=== PATIENT | male | born 1940 | race African-American/Black ===

== ENCOUNTER 2019-01-11 15:32 | Inpatient (IN) | payer OTHER ==
[2019-01-11] MEDS ORDERED: SODIUM CHLORIDE 1,000 ML IV STA ×2 (15:39→18:38)
[2019-01-11] MEDS ORDERED: ACETAMINOPHEN 1000 MG/100 ML VIAL (NON FORMULARY) IVPB ONE (15:39)
[2019-01-11] MEDS ORDERED: ONDANSETRON 4 MG/2 ML VIAL IVPUSH ONE (15:39)
--- NOTE | 2019-01-11 15:40 | PDOC ---
Rapid Medical Evaluation Time Seen by Provider: 01/11/19 15:35 Medical Evaluation: Allergies Allergy/AdvReac Type Severity Reaction Status Date / Time No Known Allergies Allergy Verified 01/11/19 15:34 01/11/19 15:35 Pt presents for abdominal pain for one week. He states the pain is located in his upper abdomen. Cannot keep fluids or food down. Also with assoicated diarrhea Exam: Orders: Pt to proceed to the ER for further evaluation Discharge Disposition - Diagnosis Abdominal pain Qualifiers: Abdominal location: epigastric Qualified Code(s): R10.13 - Epigastric pain - Referrals - Patient Instructions - Post Discharge Activity
[2019-01-11 15:41] VITALS: BMI 24.0
[2019-01-11] MEDS ORDERED: ACETAMINOPHEN INJECTION 100 ML IVPB ONE (16:30)
[2019-01-11] MEDS ORDERED: ONDANSETRON 4 MG/2 ML VIAL ONE (16:30)
--- NOTE | 2019-01-11 16:30 | PDOC ---
Attending Attestation - Resident Resident Name: DorinaWilmer - ED Attending Attestation I have performed the following: I have examined & evaluated the patient, The case was reviewed & discussed with the resident, I agree w/resident's findings & plan, Exceptions are as noted - HPI HPI: 01/11/19 16:46 78yo male with hx of afib, ckd, htn on eliquis with a week of fever and diarrhea since last . Pt sent by Dr. Yanes for eval of abd pain and fever. Pt states pain to upper abd x 3 days. Pt states watery diarrhea. Pt states dry cough. Pt denies cp/sob. No dysuria. States decreased po intake x days secondary to nausea, but denies vomiting. Pt arrives tachy, febrile. Pt denies blood in stool. No edema. Pt with dry mm. - Physicial Exam PE: 01/11/19 16:48 Gen: aaox3, hot to touch, febrile, tachy heent: EOMI, Dry mm heart: +s1s2 irreg irreg tachy lungs: cta b/l abd: soft, epigastric and L sided ttp, no rebound or guarding, some RUQ ttp-neg murphys ext: no c/c/e - Medical Decision Making 01/11/19 16:50 a/p: 78yo male sent for eval of fever x 1 week assoc with abd pain and diarrhea -watery stool -no recent travel or abx -seen by Dr. 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 mcpherson who will see the patient in consult, no emergent intervention needed ct findings discussed with Dr. Yanes who agrees with admission to [facility] and states known calcified mass to kidney call placed to dr jimenez microblog [facility] 01/12/19 01:44 multiple calls placed to surgery - pending call back *DC/Admit/Observation/Transfer Diagnosis at time of Disposition: Fever, Diarrhea, Iliac aneurysm Abdominal pain Qualifiers: Abdominal location: epigastric Qualified Code(s): R10.13 - Epigastric pain - Discharge Dispostion Condition at time of disposition: Guarded Decision to Admit order: Yes Decision to Admit order Date/Time: Decision to Admit Order Category Date Time Status Decision to Admit to Hospital Routine Admission 01/12/19 00:36 Ordered - Referrals - Patient Instructions - Post Discharge Activity Heart Score/ECG Review - ECG Intrepretation Comment:: 01/11/19 16:55 afib at 107, l axis, lvh, interventricular conduction delay, pvc, abnl ekg
--- NOTE | 2019-01-11 16:33 | PDOC ---
History of Present Illness - General Chief Complaint: Pain, Acute Stated Complaint: SENT BY DR ABAD/PADMINI PAIN/VOMITING Time Seen by Provider: 01/11/19 15:35 - History of Present Illness Initial Comments: 01/11/19 17:21 The patient is a 78 year old male with a history of Afib on eloquis, HTN, CKD who presents for evaluation of fevers and abdominal pain. The patient reports a 1 week history of subjective fevers with associated upper abdominal pain and multiple episodes of watery diarrhea prompting his presentation to the ED for further evaluation after discussion with his primary care provider. He noted some non-productive cough as well but otherwise denies sob, vomiting, or changes with urination or bowel movements. Past History - Past Medical History Allergies/Adverse Reactions: Allergies Allergy/AdvReac Type Severity Reaction Status Date / Time No Known Allergies Allergy Verified 01/11/19 15:34 Home Medications: Ambulatory Orders Apixaban [Eliquis] 5 mg PO BID 01/11/19 Atorvastatin Ca [Lipitor] 10 mg PO HS 01/11/19 Carvedilol 25 mg PO BID 01/11/19 Furosemide 80 mg PO DAILY 01/11/19 Furosemide [Lasix -] 40 mg PO BID 01/11/19 Hydralazine HCl 10 mg PO TID 01/11/19 Isosorbide Mononitrate [Imdur -] 30 mg PO DAILY 01/11/19 Sodium Bicarbonate - 2 tab PO TID 01/11/19 Spironolactone 25 mg PO DAILY 01/11/19 COPD: No HTN: Yes - Suicide/Smoking/Psychosocial Hx Smoking History: Never smoked Have you smoked in the past 12 months: No Hx Alcohol Use: Yes Drug/Substance Use Hx: No Review of Systems - Review of Systems Comments:: 01/11/19 17:24 Constitutional: Fevers, Fatigue. No chills, malaise HEENT: No Rhinorrhea, nasal congestion, visual changes Cardiovascular: No chest pain, syncope, palpitations, lightheadedness Respiratory: No Cough, SOB, Hemoptysis, Gastrointestinal: Abdominal pain, diarrhea. No Vomiting, Constipation, Melena Genitourinary: No Dysuria, Frequency, Urgency, Hesitancy, Hematuria, Flank pain Musculoskeletal: No Myalgia, arthralgia Skin: No rashes, itching, bruising, pallor Neurologic: No Headache, Dizziness, Numbness, Weakness, or Tingling Psychiatric: No Hallucinations. No SI or HI *Physical Exam - Vital Signs Last Vital Signs Temp Pulse Resp BP Pulse Ox 101.1 F H 105 H 18 82/52 L 98 01/11/19 15:35 01/11/19 15:35 01/11/19 15:35 01/11/19 15:35 01/11/19 15:35 - Physical Exam Comments: 01/11/19 17:26 General Appearance: Nourished. No Apparent Distress HEENT: No Pharyngeal Erythema, Tonsillar Exudate, Tonsillar Erythema Neck: No Cervical Lymphadenopathy Respiratory/Chest: Lungs Clear, Normal Breath Sounds. No Crackles, Rales, Rhonchi, Wheezing Cardiovascular: Regular Rhythm, Regular Rate. No Murmur, Gallops, Rubs Gastrointestinal/Abdominal: Normal Bowel Sounds, Soft. Tenderness to palpation in the epigastrium and LUQ. Mild discomfort with palpation in the RUQ with a negative Martini's sign. No Guarding, Rebound, Musculoskeletal: No CVA Tenderness Extremity: Normal Capillary Refill Integumentary: Normal Color, Dry, Warm Neurologic: Fully Oriented, Alert, Normal Mood/Affect, Normal Response, Heart Score/ECG Review #1 ECG reviewed & interpreted by me at: 17:31 01/11/19 17:31 HR 107 QTc 427 Atrial fibrillation with rapid ventricular response and PVCs Left Matthews Deviation No Acute ST Changes ED Treatment Course - LABORATORY CBC & Chemistry Diagram: 01/14/19 06:06 01/14/19 06:06 Medical Decision Making - Medical Decision Making 01/11/19 17:26 The patient is a 78 year old male with a history of Afib on eloquis, HTN, CKD who presents for evaluation of fevers and abdominal pain. Differential includes but is not limited to: Colitis, Gastritis, Sepsis, Pneumonia, Infectious, Metabolic Derangement. Given the patient's history and physical exam, we will obtain a cbc, cmp, troponin, blood cultures, UA, urine culture, stool cultures, stool ova and parasites, chest plain film, CT abdomen/pelvis with PO contrast to evaluate further. We will treat with iv fluids, tylenol, and continue to monitor and reassess while here in the ED. 01/11/19 19:04 CBC demonstrates a wbc to 12. CMP, troponin are unremarkable. The patient is pending CT abdomen/pelvis and will likely require admission. The patient was signed out to Dr. Kan. *DC/Admit/Observation/Transfer Diagnosis at time of Disposition: Fever, Diarrhea, Iliac aneurysm Abdominal pain Qualifiers: Abdominal location: epigastric Qualified Code(s): R10.13 - Epigastric pain - Discharge Dispostion Condition at time of disposition: Guarded - Referrals - Patient Instructions - Post Discharge Activity
[2019-01-11 17:05] LABS: BASO % 0.1 % (0-2.0); HEMATOCRIT 30.1 % (35.4-49); LYMPH % 3.7 % (8-40); MCH 29.5 pg (25.7-33.7); MCHC 33.1 g/dl (32.0-35.9); MEAN CELL VOLUME 88.9 fl (80-96); MEAN PLT VOLUME 8.4 fl (7.5-11.1); NEUT % 88.2 % (42.8-82.8); PLATELET COUNT 134 K/MM3 (134-434); RBC 3.38 M/mm3 (4.00-5.60); RDW 16.2 % (11.9-15.9); WHITE BLOOD COUNT 12.1 K/mm3 (4.0-10.0)
[2019-01-11 17:16] LABS: ALBUMIN 2.7 g/dl (3.4-5.0); BILIRUBIN,TOTAL 2.2 mg/dL (0.2-1); BLOOD UREA NITROGEN 32.8 mg/dL (7-18); CALCIUM 8.3 mg/dL (8.5-10.1); CREATININE 2.3 mg/dL (0.55-1.3); POTASSIUM 3.7 mmol/L (3.5-5.1); TOT PROT 6.8 g/dl (6.4-8.2)
[2019-01-11 17:27] LABS: INR 3.08 (0.83-1.09); PROTHROMBIN TIME (PATIENT) 36.8 SEC (9.7-13.0)
[2019-01-11] MEDS ORDERED: SODIUM CHLORIDE 0.9% 1000 ML INFUS.BAG IV ONE (22:21)
[2019-01-11] MEDS ORDERED: METOPROLOL TARTRATE 5 MG/5 ML VIAL IVPUSH ONE (22:22)
[2019-01-11] MEDS ORDERED: METOPROLOL TARTRATE 5 MG/5 ML VIAL ONE (23:06)
--- NOTE | 2019-01-12 00:34 | PN ---
Teaching Attending Note Name of Resident: Meagan El ATTENDING PHYSICIAN STATEMENT I saw and evaluated the patient. I reviewed the resident's note and discussed the case with the resident. I agree with the resident's findings and plan as documented. SUBJECTIVE: Patient is a 78 year old man with PMH of Afib (on Eliquis), CKD and HTN with a week of fever and diarrhea. Patient sent by Dr. Yanes for evaluation of abdominal pain and fever. Patient states that he has had pain to upper abdomen with watery diarrhea and dry cough. Says he is afraid to eat or drink liquid becomes it comes right out and he has stool incontinence. Says he has lost some weight. Denies chest pain or SOB. No dysuria. States decreased oral intake for days due to nausea, but denies vomiting. Recently diagnosed CKD but cause is unknown. Has FH of CAD and CKD - father was on dialysis. Denies bloody stool, recent travels, sick contacts, recent antibiotics use, illicit drug use or consumption of unusual/stale or street food. OBJECTIVE: Alert Vital Signs Period Temp Pulse Resp BP Sys/Finney Pulse Ox Last 24 Hr 98.5 F-101.1 F 103-124 18-21 82-104/52-76 95-98 HEENT: No Jaundice, eye redness or discharge, PERRLA, EOMI. Normocephalic, atraumatic. External ears are normal and hearing is grossly intact. No nasal discharge. Neck: Supple, nontender. No palpable adenopathy or thyromegaly. No JVD Chest: Good effort. Clear to auscultation and percussion. Heart: Irregularly irregular. No S3, rub or murmur Abdomen: Not distended, soft, upper abdominal tenderness; and no HSM. No rebound or guarding. Normal bowel sounds. Ext: Peripheral pulses intact. No leg edema. Cellulitis and induration to the right buttock Skin: Warm and dry. No petechiae, rash or ecchymosis. Neuro: Alert. Oriented x3. CN 2-12 grossly intact. Sensation grossly intact in all four extremities and DTR are symmetric. Psych: Appropriate mood and affect. Good insight. Current Medications Generic Name Dose Route Start Last Admin Trade Name Freq PRN Reason Stop Dose Admin Ciprofloxacin/Dextrose 400 mg in 200 mls @ 200 mls/hr 01/12/19 00:39 Cipro 400 Mg Premix Ivpb (Restricted To Id) IVPB 01/12/19 01:38 ONCE ONE Metronidazole 500 mg in 100 mls @ 100 mls/hr 01/12/19 00:39 Flagyl 500mg Premixed Ivpb - IVPB 01/12/19 01:38 ONCE ONE Home Medications Medication Instructions Recorded Apixaban [Eliquis] 5 mg PO BID 01/11/19 Atorvastatin Ca [Lipitor] 10 mg PO HS 01/11/19 Carvedilol 25 mg PO BID 01/11/19 Furosemide 80 mg PO DAILY 01/11/19 Furosemide [Lasix -] 40 mg PO BID 01/11/19 Hydralazine HCl 20 mg PO TID 01/11/19 Isosorbide Mononitrate [Imdur -] 30 mg PO DAILY 01/11/19 Sodium Bicarbonate - 2 tab PO TID 01/11/19 Spironolactone 25 mg PO BID 01/11/19 Abnormal Lab Results 01/11/19 01/11/19 01/11/19 16:00 16:00 16:00 WBC 12.1 H RBC 3.38 L Hgb 10.0 L Hct 30.1 L RDW 16.2 H Absolute Neuts (auto) 10.7 H Neutrophils % 88.2 H Lymphocytes % 3.7 L PT with INR 36.80 H INR 3.08 H Sodium 134 L BUN 32.8 H Creatinine 2.3 H Calcium 8.3 L Total Bilirubin 2.2 H ALT 11 L Albumin 2.7 L ASSESSMENT AND PLAN: 1. 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 Hu by the ER staff and he will see the patient in consult - no emergent intervention needed". CXR shows cardiomegaly, unfolded aorta but no infiltrates. Stool is being sent for analysis. Patient started on IV Cipro and Flagyl. Will consult ID, Surgery and GI. EKG shows Afib with rate of 107 and nonspecific intraventricular block. Got IV Lopressor 5 mg in the ER and the heart rate improved. If he is unable to tolerate Carvedilol, will use Lopressor IV PRN for rate control. Will continue comprehensive care of all his comorbid conditions and reduce dose of Eliquis to 2.5 mg bid in view of CKD. Admit to telemetry. 2. Hypoalbuminemia - Possibly due to combined effects of malnutrition and inflammation associated with comorbid chronic conditions. Will ensure adequate dietary protein intake and also consult medical administrative technician. Urinalysis pending. 3. CKD - Cause unclear. Will hydrate gently, monitor urine output, get urinalysis and consult nephrology. Avoid nephrotoxic agents such as NSAIDS, aminoglycosides, contrast dyes and certain Alternative medicine products. 4. Anemia - Likely partly due to CKD. Will do basic anemia work up including serial stool guaiacs, reticulocyte count and iron studies. 5. Hypertension - Will hold outpatient antihypertensive drugs for now in view of low normal BP. Restart when clinically appropriate. Revise regimen to ensure [id number] excellent BP control and business and financial counsel patient on the injurious effects of uncontrolled hypertension. Nonpharmacologic measures to control hypertension like weight loss, salt restriction and exercise discussed. Importance of adherence to treatment regimen and attainment of normotension emphasized. 6. DVT prophylaxis - On Eliquis for Afib. 7. Advance directives - Full code
[2019-01-12] MEDS ORDERED: CIPROFLOXACIN 400 MG/D5W 400 MG/200 ML IVPB IVPB ONE (00:39)
[2019-01-12] MEDS ORDERED: LACTATED RINGERS SOLUTION 1,000 ML/1,000 ML INFUS.BAG IV SCH (01:45)
[2019-01-12] MEDS ORDERED: SODIUM CHLORIDE 1,000 ML IV SCH (01:45)
[2019-01-12] MEDS: SODIUM CHLORIDE 1,000 ML IV SCH (02:30)
[2019-01-12] MEDS ORDERED: METOPROLOL TARTRATE 5 MG/5 ML VIAL IVPUSH PRN (02:30)
--- NOTE | 2019-01-12 04:01 | HP ---
CHIEF COMPLAINT: Diarrhea for the past 4-5 days PCP: Ledy Rascon HISTORY OF PRESENT ILLNESS: This is a 78 year old male with PMH significant for HTN, CKD, and AFib. He presented today from home with complaints of diarrhea for the past 4-5 days. He states that he ate home cooked steak 7-8 days ago, and started to feel nauseated and "queasy" over the next few hours. He attempted a bowel movement, but was unable to move his bowels. He endorsed feeling feverish around that time , which resolved after he took a Tylenol. He then developed anorexia the next day. 2 days after that he developed generalized weakness and 4-5 episodes of diarrhea per day since then. The stool is watery, brown, non foul smelling, with no blood or associated pain during defecation. He also complains of tenderness in his dawna-rectal region for the past 4,5 days. He had surgery in the 60s to remove what he described as a "soft mass" in the area, and states that he has never felt any pain or discomfort there before. He does not complain of any associated vomiting, constipation, dizziness, light headedness, SOB, palpitations, dysuria, urinary urgency or hesitancy. He denies any recent travel or sick contacts. 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.6 aortoiliac aneurysm/ calcified R renal mass (4) CXR: Cardiomegaly, no infiltrates Recent Travel: None PAST MEDICAL HISTORY: HTN CKD AFib on Eliquis PAST SURGICAL HISTORY: Dawna-rectal mass removed in 60s Social History: Lives with his , is retired Smoking: Quit 60 years ago, smoked 1/2 pack per day for 15 years Alcohol: Quit 60 years ago Drugs: Denies Family History: Allergies No Known Allergies Allergy (Verified 01/11/19 15:34) HOME MEDICATIONS: Home Medications Medication Instructions Recorded Apixaban [Eliquis] 5 mg PO BID 01/11/19 Atorvastatin Ca [Lipitor] 10 mg PO HS 01/11/19 Carvedilol 25 mg PO BID 01/11/19 Furosemide 80 mg PO DAILY 01/11/19 Furosemide [Lasix -] 40 mg PO BID 01/11/19 Hydralazine HCl 20 mg PO TID 01/11/19 Isosorbide Mononitrate [Imdur -] 30 mg PO DAILY 01/11/19 Sodium Bicarbonate - 2 tab PO TID 01/11/19 Spironolactone 25 mg PO BID 01/11/19 REVIEW OF SYSTEMS CONSTITUTIONAL: generalized weakness, malaise, loss of appetite Absent: fever, chills, diaphoresis, generalized weakness, malaise, loss of appetite, weight change HEENT: Absent: rhinorrhea, nasal congestion, throat pain, throat swelling, difficulty swallowing, mouth swelling, ear pain, eye pain, visual changes CARDIOVASCULAR: irregular heart rate Absent: chest pain, syncope, palpitations, irregular heart rate, lightheadedness , peripheral edema RESPIRATORY: Absent: cough, shortness of breath, dyspnea with exertion, orthopnea, wheezing, stridor, hemoptysis GASTROINTESTINAL: nausea, diarrhea Absent: abdominal pain, abdominal distension, nausea, vomiting, diarrhea, constipation, melena, hematochezia GENITOURINARY: Absent: dysuria, frequency, urgency, hesitancy, hematuria, flank pain, genital pain MUSCULOSKELETAL: Absent: myalgia, arthralgia, joint swelling, back pain, neck pain SKIN: Absent: rash, itching, pallor HEMATOLOGIC/IMMUNOLOGIC: Absent: easy bleeding, easy bruising, lymphadenopathy, frequent infections ENDOCRINE: Absent: unexplained weight gain, unexplained weight loss, heat intolerance, cold intolerance NEUROLOGIC: Absent: headache, focal weakness or paresthesias, dizziness, unsteady gait, seizure, mental status changes, bladder or bowel incontinence PSYCHIATRIC: Absent: anxiety, depression, suicidal or homicidal ideation, hallucinations. PHYSICAL EXAMINATION Vital Signs - 24 hr 01/11/19 01/11/19 01/11/19 15:35 16:00 17:30 Temperature 101.1 F H Pulse Rate 105 H Pulse Rate [ 110 H 113 H Apical] Respiratory 18 18 18 Rate Blood Pressure 82/52 L Blood Pressure 100/66 94/75 [Right Arm] O2 Sat by Pulse 98 95 95 Oximetry (%) 01/11/19 01/11/19 01/11/19 18:49 22:22 22:39 Temperature 98.5 F Pulse Rate Pulse Rate [ 103 H 124 H Apical] Respiratory 21 H 18 Rate Blood Pressure Blood Pressure 94/72 104/76 [Right Arm] O2 Sat by Pulse 95 Oximetry (%) 01/11/19 01/12/19 23:10 01:07 Temperature Pulse Rate Pulse Rate [ 110 H Apical] Respiratory 18 Rate Blood Pressure 93/68 Blood Pressure 105/68 [Right Arm] O2 Sat by Pulse Oximetry (%) GENERAL: Awake, alert, and fully oriented, in no acute distress. HEAD: Normal with no signs of trauma. EYES: Pupils equal, round and reactive to light, extraocular movements intact, sclera anicteric, conjunctiva clear. No lid lag. EARS, NOSE, THROAT: Ears normal, nares patent, oropharynx clear without exudates. dry mucous membranes. NECK: Normal range of motion, supple without lymphadenopathy, JVD, or masses. LUNGS: Breath sounds equal, clear to auscultation bilaterally. No wheezes, and no crackles. No accessory muscle use. HEART: tachycardic, irrefular rhythm, no rub or gallop. ABDOMEN: Soft, nontender, not distended, normoactive bowel sounds, 3x2 cm perirectal mass on Rt buttock, slightly erythematous, on fluctuant MUSCULOSKELETAL: Normal range of motion at all joints. No bony deformities or tenderness. No CVA tenderness. UPPER EXTREMITIES: 2+ pulses, warm, well-perfused. No cyanosis. No clubbing. No peripheral edema. LOWER EXTREMITIES: 2+ pulses, warm, well-perfused. No calf tenderness. No peripheral edema. NEUROLOGICAL: Cranial nerves II-XII intact. Normal speech. Normal gait. PSYCHIATRIC: Cooperative. Good eye contact. Appropriate mood and affect. SKIN: Warm, dry, normal turgor, no rashes or lesions noted, normal capillary refill. Laboratory Results - last 24 hr 01/11/19 01/11/19 01/11/19 16:00 16:00 16:00 WBC 12.1 H RBC 3.38 L Hgb 10.0 L Hct 30.1 L MCV 88.9 MCH 29.5 MCHC 33.1 RDW 16.2 H Plt Count 134 MPV 8.4 Absolute Neuts (auto) 10.7 H Neutrophils % 88.2 H Lymphocytes % 3.7 L Monocytes % 8.0 Eosinophils % 0.0 Basophils % 0.1 Nucleated RBC % 0 PT with INR 36.80 H INR 3.08 H Sodium 134 L Potassium 3.7 Chloride 100 Carbon Dioxide 24 Anion Gap 11 BUN 32.8 H Creatinine 2.3 H Est GFR (CKD-EPI)AfAm 30.17 Est GFR (CKD-EPI)NonAf 26.04 Random Glucose 90 Lactic Acid Calcium 8.3 L Total Bilirubin 2.2 H AST 29 ALT 11 L Alkaline Phosphatase 111 Total Protein 6.8 Albumin 2.7 L Lipase 116 01/11/19 16:00 WBC RBC Hgb Hct MCV MCH MCHC RDW Plt Count MPV Absolute Neuts (auto) Neutrophils % Lymphocytes % Monocytes % Eosinophils % Basophils % Nucleated RBC % PT with INR INR Sodium Potassium Chloride Carbon Dioxide Anion Gap BUN Creatinine Est GFR (CKD-EPI)AfAm Est GFR (CKD-EPI)NonAf Random Glucose Lactic Acid 1.4 Calcium Total Bilirubin AST ALT Alkaline Phosphatase Total Protein Albumin Lipase ASSESSMENT/PLAN: 78 year old male with PMH significant for HTN, CKD, and AFib. He presented today from home with complaints of diarrhea for the past 4-5 days. #Sepsis - Perirectal abcess vs gastroenteritis - CT prelim report: mass surrounding coccyx involving ischiorectal & R buttock fat - Blood, stool, and urine cx ordered - Cipro, Metronidazole given in ER - GI (Dr. Auguste) consulted - ID (Dr. Avila) consulted for abx recommendations - Surgery (Dr. 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 Hu, no acute intervention recommended - Vascular (Dr. Hu) consult placed #Anemia - Likely 2/2 CKD - H&H 10.0/30.1 - Fe studies/Retic count ordered - FOBT negative #Hx of CKD - Bun:Cr 32.8/2.3 - Nephro (Dr. Yanes) consulted - CT prelim report: calcified R renal mass - ER spoke with Dr. Yanes, he stated that R Renal mass is chronic #Hx of AFib with RVR - On Eliquis 5mg BD, may have to reduce Eliquis dose (PT/INR 36.8, high GFR) - Was tachycardic, put on Lopressor 5mg IV Q4H PRN, 5mg given in ER #Hx of HTN - Will hold home meds due to hypotension - Monitor BP/ continue home emds when appropriate #FEN - N/S @ 75 - Hyponatremia (134) possibly 2/2 volume loss from diarrhea as well as impaired renal regulation due to CKD - Monitor Na - Mg, Phos ordere d - NPO pending GI consult #DVT PE - SCDs (will avoid Lovenox/Heparin since pt is on Eliquis for AFib) Visit type - Emergency Visit Emergency Visit: Yes ED Registration Date: 01/12/19 Care time: The patient presented to the Emergency Department on the above date and was hospitalized for further evaluation of their emergent condition. - New Patient This patient is new to me today: Yes Date on this admission: 01/12/19 - Critical Care Critical Care patient: No ATTENDING PHYSICIAN STATEMENT I saw and evaluated the patient. I reviewed the resident's note and discussed the case with the resident. I agree with the resident's findings and plan as documented. SUBJECTIVE: OBJECTIVE: ASSESSMENT AND PLAN:
[2019-01-12 04:20] LABS: URINE APPEARANCE CLOUDY; URINE BILIRUBIN 1+ (NEGATIVE); URINE COLOR DK YELLOW; URINE GLUCOSE (UA) NEGATIVE (NEGATIVE); URINE KETONE TRACE (NEGATIVE); URINE LEUK ESTERASE 1+ (NEGATIVE); URINE NITRITE NEGATIVE (NEGATIVE); URINE PROTEIN 2+ (NEGATIVE)
[2019-01-12 05:21] LABS: EPI CELLS 18.3 /HPF (0-5/HPF); HYALINE CASTS 0 /lpf (0-8); URINE BACTERIA 16.8 /hpf (NEGATIVE); URINE RBC 3.1 /hpf (0-4); URINE WBC 15.2 /hpf (0-5)
[2019-01-12] MEDS ORDERED: ACETAMINOPHEN INJECTION 100 ML IVPB ONE (06:33)
[2019-01-12] MEDS: ACETAMINOPHEN 1000 MG/100 ML VIAL (NON FORMULARY) IVPB PRN (06:36)
[2019-01-12 07:30] LABS: BASO % 0.1 % (0-2.0); HEMOGLOBIN 9.4 GM/dL (11.7-16.9); LYMPH % 2.7 % (8-40); MCH 29.6 pg (25.7-33.7); MCHC 33.5 g/dl (32.0-35.9); MEAN CELL VOLUME 88.5 fl (80-96); MEAN PLT VOLUME 8.2 fl (7.5-11.1); MONO % 7.9 % (3.8-10.2); NEUT % 89.3 % (42.8-82.8); PLATELET COUNT 115 K/MM3 (134-434); RBC 3.17 M/mm3 (4.00-5.60); RDW 16.2 % (11.9-15.9); WHITE BLOOD COUNT 11.8 K/mm3 (4.0-10.0)
[2019-01-12 07:36] LABS: ALBUMIN 2.4 g/dl (3.4-5.0); BILIRUBIN,TOTAL 2.1 mg/dL (0.2-1); CREATININE 2.2 mg/dL (0.55-1.3); PHOSPHOROUS 2.8 mg/dL (2.5-4.9); POTASSIUM 3.7 mmol/L (3.5-5.1); TOT PROT 6.2 g/dl (6.4-8.2)
--- NOTE | 2019-01-12 07:42 | CONSULT ---
Consult Consult Specialty:: General Surgery Reason for Consultation:: gluteal/ perianal abscess? and adenopathy - History of Present Illness Chief Complaint: perianal pain History of Present Illness: 78 yo male PMH significant for HTN, CKD, and AFib on xeralto presented today from home with complaints of diarrhea for the past 4-5 days. He states that he ate home cooked steak 7-8 days ago, and started to feel nauseated and "queasy" over the next few hours. He attempted a bowel movement, but was unable to move his bowels. He endorsed feeling feverish around that time, which resolved after he took a Tylenol. He then developed anorexia the next day. 2 days after that he developed generalized weakness and 4-5 episodes of diarrhea per day since then. The stool is watery, brown, non foul smelling, with no blood or associated pain during defecation. We were called to assess. - History Source History Provided By: Patient, Medical Record Limitations to Obtaining History: No Limitations - Past Medical History Cardio/Vascular: Yes: AFIB, HTN Renal/: Yes: Renal Inusuff - Alcohol/Substance Use Hx Alcohol Use: Yes - Smoking History Smoking history: Never smoked Have you smoked in the past 12 months: No - Social History Place of : [facility] History of Recent Travel: No Home Medications - Allergies Allergies/Adverse Reactions: Allergies Allergy/AdvReac Type Severity Reaction Status Date / Time No Known Allergies Allergy Verified 01/11/19 15:34 - Home Medications Home Medications: Ambulatory Orders Apixaban [Eliquis] 5 mg PO BID 01/11/19 Atorvastatin Ca [Lipitor] 10 mg PO HS 01/11/19 Carvedilol 25 mg PO BID 01/11/19 Furosemide 80 mg PO DAILY 01/11/19 Furosemide [Lasix -] 40 mg PO BID 01/11/19 Hydralazine HCl 10 mg PO TID 01/11/19 Isosorbide Mononitrate [Imdur -] 30 mg PO DAILY 01/11/19 Sodium Bicarbonate - 2 tab PO TID 01/11/19 Spironolactone 25 mg PO DAILY 01/11/19 Review of Systems - Review of Systems Constitutional: denies: Chills, Fever Eyes: denies: Blind Spots, Recent Change in Vision HENT: denies: Difficult Swallowing, Throat Pain Neck: denies: Decreased ROM, Tenderness Cardiovascular: denies: Chest Pain, Palpitations Respiratory: denies: Cough, SOB Gastrointestinal: denies: Abdominal Pain, Constipation, Diarrhea Genitourinary: denies: Discharge, Dysuria Breasts: reports: No Symptoms Reported. denies: Pain Musculoskeletal: denies: Muscle Pain, Muscle Cramps Integumentary: denies: Lesions, Pruritis, Rash Neurological: denies: Seizure, Syncope Endocrine: denies: Unexplained Weight Gain, Unexplained Weight Loss Hematology/Lymphatic: denies: Easily Bruised, Excessive Bleeding Physical Exam Vital Signs: Vital Signs Temperature 100.0 F H 01/12/19 05:00 Pulse Rate 98 H 01/12/19 05:25 Respiratory Rate 18 01/12/19 05:25 Blood Pressure 106/75 01/12/19 05:25 O2 Sat by Pulse Oximetry (%) 97 01/12/19 05:25 Constitutional: Yes: Well Nourished, No Distress, Calm Eyes: Yes: Conjunctiva Clear, EOM Intact HENT: Yes: Atraumatic, Normocephalic Neck: Yes: Supple, Trachea Midline Cardiovascular: Yes: Regular Rate and Rhythm, S1, S2 Respiratory: Yes: Regular, CTA Bilaterally Gastrointestinal: Yes: Normal Bowel Sounds, Soft ...Rectal Exam: Yes: Erythema, Induration (Right gluteal fold 10X4cm). No: Hemorrhoids/External, Hemorrhoids/Internal Renal/: No: CVA Tenderness - Left, CVA Tenderness - Right Breast(s): No: Mass, Skin Changes Musculoskeletal: No: Joint Swelling, Muscle Weakness Extremities: No: Cool, Cyanosis Edema: No Peripheral Pulses WNL: Yes Integumentary: Yes: Other (adenopathy groin and axilla diffusely). No: Jaundice , Rash Neurological: Yes: Alert, Oriented Psychiatric: Yes: Alert, Oriented Labs: CBC, BMP 01/12/19 06:09 Imaging - Results Cat Scan: Report Reviewed, Image Reviewed Problem List - Problems (1) Abscess, gluteal, right Assessment/Plan: 78yo male with MMP including a right gluteal abscess, supratherapeutic INR >3 correct INR (vit K and FFP), trend labs Bedside I&D agree with ID recommendations tumor markers consider MRI to eval masses and adenopathy will follow Thank you for the opportunity to participate in the care of this patient. Code(s): L02.31 - CUTANEOUS ABSCESS OF BUTTOCK (2) Adenopathy Code(s): R59.1 - GENERALIZED ENLARGED LYMPH NODES (3) Abdominal pain Code(s): R10.9 - UNSPECIFIED ABDOMINAL PAIN Qualifiers: Abdominal location: epigastric Qualified Code(s): R10.13 - Epigastric pain (4) Diarrhea Code(s): R19.7 - DIARRHEA, UNSPECIFIED
--- NOTE | 2019-01-12 08:44 | CON.GI ---
Consult Consult Specialty:: GI Referred by:: Dr Bradley Garcia Reason for Consultation:: Diarrhea - History of Present Illness Chief Complaint: Diarrhea History of Present Illness: Patient is a 78 y/o male with past medical history of HTN, CKD, Afib. I was consulted to evaluate patient for diarrhea and perirectal abscess. Patient states 5-6 days ago he ate a piece of meat then began experiencing non-bloody diarrhea shortly after. Patient states diarrhea was accompanied with poor appetite and when he would ingest food or drink liquids he had diarrhea shortly after. He states having night awakenings and fever, but denies recent travel or antibiotic use. Denies nausea, vomiting, abdominal pain, rectal bleeding or melena. Complains of rectal pain 4 days as well. Denies abnormal weight loss. - History Source History Provided By: Patient Limitations to Obtaining History: No Limitations - Past Medical History Cardio/Vascular: Yes: AFIB, HTN Renal/: Yes: Other (CKD) - Past Surgical History Past Surgical History: Yes: None - Alcohol/Substance Use Hx Alcohol Use: Yes - Smoking History Smoking history: Never smoked Have you smoked in the past 12 months: No - Social History ADL: Independent History of Recent Travel: No Home Medications - Allergies Allergies/Adverse Reactions: Allergies Allergy/AdvReac Type Severity Reaction Status Date / Time No Known Allergies Allergy Verified 01/11/19 15:34 - Home Medications Home Medications: Ambulatory Orders Apixaban [Eliquis] 5 mg PO BID 01/11/19 Atorvastatin Ca [Lipitor] 10 mg PO HS 01/11/19 Carvedilol 25 mg PO BID 01/11/19 Furosemide 80 mg PO DAILY 01/11/19 Furosemide [Lasix -] 40 mg PO BID 01/11/19 Hydralazine HCl 10 mg PO TID 01/11/19 Isosorbide Mononitrate [Imdur -] 30 mg PO DAILY 01/11/19 Sodium Bicarbonate - 2 tab PO TID 01/11/19 Spironolactone 25 mg PO DAILY 01/11/19 Review of Systems - Review of Systems Constitutional: reports: Fever, Loss of Appetite, Weakness Eyes: reports: No Symptoms HENT: reports: No Symptoms Neck: reports: No Symptoms Cardiovascular: reports: No Symptoms Respiratory: reports: No Symptoms Gastrointestinal: reports: Diarrhea, Other (rectal discomfort) Genitourinary: reports: No Symptoms Breasts: reports: No Symptoms Reported Musculoskeletal: reports: No Symptoms Integumentary: reports: No Symptoms Neurological: reports: No Symptoms Endocrine: reports: No Symptoms Hematology/Lymphatic: reports: No Symptoms Psychiatric: reports: No Symptoms Physical Exam-GI Vital Signs: Vital Signs Temperature 99.1 F 01/12/19 08:14 Pulse Rate 98 H 01/12/19 05:25 Respiratory Rate 18 01/12/19 05:25 Blood Pressure 106/75 01/12/19 05:25 O2 Sat by Pulse Oximetry (%) 97 01/12/19 05:25 Constitutional: Yes: No Distress, Calm Eyes: Yes: Conjunctiva Clear HENT: Yes: Atraumatic Cardiovascular: Yes: Pulse Irregular Respiratory: Yes: Regular, CTA Bilaterally Gastrointestinal Inspection: Yes: WNL. No: Ascites, Distention, Hernia, Scars, Other ...Auscultate: Yes: Normoactive Bowel Sounds. No: Hyperactive Bowel Sounds, Hypoactive Bowel Sounds, No Bowel Sounds, Other ...Palpate: Yes: Tenderness (mid abdomen). No: Firm/Rigid, Guarding, Hepatomegaly, Mass, Pulsatile Mass, Soft, Splenomegaly, Tenderness, Epigastium, Tenderness, Rebound, Other ...Percussion: Yes: Other (high tympany). No: Dullness, Fluid Wave, Tympanitic Labs: CBC, BMP 01/12/19 06:09 01/12/19 06:09 INR, PTT INR 3.08 (0.83-1.09) H 01/11/19 16:00 Imaging - Results Cat Scan: Pending Problem List - Problems (1) Diarrhea Assessment/Plan: >IV hydration >collect stool for stool culture, calpoprectin, stool o&P Code(s): R19.7 - DIARRHEA, UNSPECIFIED
[2019-01-12] MEDS ORDERED: SODIUM CHLORIDE 500 ML IV STA (09:21)
[2019-01-12] MEDS: PIPERACILLIN/TAZOB 3.375 GM 3.375 GM in DEXTROSE 5%-WATER - 50 ML IVPB SCH ×2 (09:30→17:54)
[2019-01-12] MEDS ORDERED: PIPERACILLIN/TAZOB 3.375 GM 3.375 GM/50 ML BAG IVPB ONE (09:45)
[2019-01-12 10:25] LABS: ERYTHROCYTE SEDIMENTATION RATE 74 mm/hr (0-20)
--- NOTE | 2019-01-12 13:44 | ECHO ---
Name: MACHO MALLOY Exam:Adult Echocardiogram Study Date: 01/12/2019 11:22 AM Age: 78 yrs Reason For Study: BASELINE ATRIAL FIBRILLATION WITH RVR Height: 76 in Weight: 198 lb BSA: 2.2 m2 MMode/2D Measurements & Calculations IVSd: 1.3 cm Ao root diam: 3.9 cm LVIDd: 5.4 cm LA dimension: 4.2 cm LVIDs: 4.5 cm LVPWd: 1.3 cm EDV(Teich): 142.5 ml LVOT diam: 2.2 cm ESV(Teich): 92.3 ml LAV (MOD-bp): 154.0 ml Doppler Measurements & Calculations MV E max dionicio: 66.6 cm/sec Ao V2 max: 161.0 cm/sec MV A max dionicio: 22.7 cm/sec Ao max P.4 mmHg MV E/A: 2.9 Ao V2 mean: 111.8 cm/sec MV dec time: 0.17 sec Ao mean P.8 mmHg Ao V2 VTI: 24.0 cm JUHI(I,D): 2.5 cm2 AI P1/2t: 606.0 msec JUHI(V,D): 2.3 cm2 AI max dionicio: 345.8 cm/sec LV V1 max P.6 mmHg AI max P.9 mmHg LV V1 mean P.7 mmHg AI dec slope: 167.2 cm/sec2 LV V1 max: 95.3 cm/sec LV V1 mean: 60.4 cm/sec LV V1 VTI: 15.3 cm SV(LVOT): 60.4 ml TR max dionicio: 305.2 cm/sec TR max P.0 mmHg PI end-d dionicio: 105.3 cm/sec Med Peak E' Dionicio: 4.2 cm/sec Med E/e': 16.0 Lat Peak E' Dionicio: 3.7 cm/sec Lat E/e': 18.2 Procedure A complete two-dimensional transthoracic echocardiogram was performed (2D, M-mode, Doppler and color flow Doppler). Left Ventricle There is severe concentric left ventricular hypertrophy. Left ventricular systolic function is severe ly reduced. Ejection Fraction = 25-30%. There is severe global hypokinesis of the left ventricle. Right Ventricle The right ventricle is mildly dilated. The right ventricular systolic function is mildly reduced. Atria The left atrium is severely dilated. The right atrium is severely dilated. Mitral Valve There is trace mitral regurgitation. Tricuspid Valve There is moderate tricuspid regurgitation. Right ventricular systolic pressure is elevated at 40-50mm Hg. Aortic Valve No hemodynamically significant valvular aortic stenosis. Mild aortic regurgitation. Pulmonic Valve There is no pulmonic valvular regurgitation. Great Vessels Mild aortic root dilatation. Severely dilated inferior vena cava. Pericardium/Pleura There is no pericardial effusion. Interpretation Summary There is severe concentric left ventricular hypertrophy. Left ventricular systolic function is severely reduced. There is severe global hypokinesis of the left ventricle. The right ventricle is mildly dilated. The right ventricular systolic function is mildly reduced. The left atrium is severely dilated. The right atrium is severely dilated. There is trace mitral regurgitation. There is moderate tricuspid regurgitation. Right ventricular systolic pressure is elevated at 40-50mmHg. Mild aortic regurgitation. Mild aortic root dilatation. Severely dilated inferior vena cava MD Bert Devi 01/12/2019 01:43 PM
--- NOTE | 2019-01-12 15:24 | CONSULT ---
- Consultation REQUESTING PROVIDER: CONSULT REQUEST: We have been asked to surgically evaluate this patient for aortoiliac aneurysm. PCP:Henrietta Chang HISTORY OF PRESENT ILLNESS: 78 y/o M w/ PMHx HTN, CKD, and AFib on Eliquis, a/w diarrhea. Pt found to have dawna-rectal abscess. 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 Pt reports no prior knowledge of aneurysm. Denies any abdominal pain. Reports he ambulated 1 block at a time due to instability without the use of assisting devices. Denies any sxs of claudication. Denies family h/o aneurysm. PMHx: as above PSHx: prior sx for rectal mass/lesion Home Medications Medication Instructions Recorded Apixaban [Eliquis] 5 mg PO BID 01/11/19 Atorvastatin Ca [Lipitor] 10 mg PO HS 01/11/19 Carvedilol 25 mg PO BID 01/11/19 Furosemide 80 mg PO DAILY 01/11/19 Furosemide [Lasix -] 40 mg PO BID 01/11/19 Hydralazine HCl 10 mg PO TID 01/11/19 Isosorbide Mononitrate [Imdur -] 30 mg PO DAILY 01/11/19 Sodium Bicarbonate - 2 tab PO TID 01/11/19 Spironolactone 25 mg PO DAILY 01/11/19 Allergies Allergy/AdvReac Type Severity Reaction Status Date / Time No Known Allergies Allergy Verified 01/11/19 15:34 REVIEW OF SYSTEMS: CARDIOVASCULAR: Absent: chest pain, syncope RESPIRATORY: Absent: cough, shortness of breath PHYSICAL EXAM: GENERAL: Awake, alert, and fully oriented, in no acute distress. HEAD: Normal with no signs of trauma. LUNGS: Unlabored on RA, No accessory muscle use. ABDOMEN: Soft, nontender, not distended, no palpable pulsatile abdominal mass. LOWER EXTREMITIES: b/l les warm, well perfused. Vasc: 2+ fem b/l, 2+ b/l pops, RLE 2+ dp/pt, L 1+ dp/pt Vital Signs Temperature 98.2 F 01/12/19 13:45 Pulse Rate 87 01/12/19 13:09 Respiratory Rate 15 01/12/19 13:09 Blood Pressure 93/51 L 01/12/19 13:09 O2 Sat by Pulse Oximetry (%) 98 01/12/19 11:01 Lab Results WBC 11.8 K/mm3 (4.0-10.0) H 01/12/19 06:09 RBC 3.17 M/mm3 (4.00-5.60) L 01/12/19 06:09 Hgb 9.4 GM/dL (11.7-16.9) L 01/12/19 06:09 Hct 28.0 % (35.4-49) L 01/12/19 06:09 MCV 88.5 fl (80-96) 01/12/19 06:09 MCHC 33.5 g/dl (32.0-35.9) 01/12/19 06:09 RDW 16.2 % (11.9-15.9) H 01/12/19 06:09 Plt Count 115 K/MM3 (134-434) L 01/12/19 06:09 Sodium 136 mmol/L (136-145) 01/12/19 06:09 Potassium 3.7 mmol/L (3.5-5.1) 01/12/19 06:09 Chloride 105 mmol/L (98-107) 01/12/19 06:09 Carbon Dioxide 21 mmol/L (21-32) 01/12/19 06:09 Anion Gap 11 MMOL/L (8-16) 01/12/19 06:09 BUN 34.0 mg/dL (7-18) H 01/12/19 06:09 Creatinine 2.2 mg/dL (0.55-1.3) H 01/12/19 06:09 Random Glucose 77 mg/dL (74-106) 01/12/19 06:09 Calcium 8.0 mg/dL (8.5-10.1) L 01/12/19 06:09 INR 3.08 (0.83-1.09) H 01/11/19 16:00 CT abdo/pelvis (01/11/19): 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 Calcified outer rim noted which could represent thrombus. The right common iliac artery measures 2.2cm, left 1.9cm. Distal aorta infrarenal measures 2.8cm. A/P: 78 y/o M w/ PMHx HTN, CKD, and AFib on Eliquis, a/w diarrhea. Pt found to have dawna-rectal abscess. 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 Vascular consulted for further evaluation. Plan pending review of images with attending
--- NOTE | 2019-01-12 15:28 | EKG ---
Test Reason : Blood Pressure : / mmHG Vent. Rate : 110 BPM Atrial Rate : 110 BPM P-R Int : 198 ms QRS Dur : 144 ms QT Int : 330 ms P-R-T Axes : 000 -70 096 degrees QTc Int : 446 ms ATRIAL FIBRILLATION WITH RAPID VENTRICULAR RESPONSE LEFT AXIS DEVIATION LEFT BUNDLE BRANCH BLOCK ABNORMAL ECG Confirmed by VASILIY VIDAL, NASIMA ([id number]) on 01/12/2019 3:27:58 PM Referred By: Confirmed By:NASIMA AMANDA MD
--- NOTE | 2019-01-12 15:30 | EKG ---
Test Reason : Blood Pressure : / mmHG Vent. Rate : 107 BPM Atrial Rate : 115 BPM P-R Int : 000 ms QRS Dur : 140 ms QT Int : 320 ms P-R-T Axes : 000 -74 092 degrees QTc Int : 427 ms POOR DATA QUALITY, INTERPRETATION MAY BE ADVERSELY AFFECTED ATRIAL FIBRILLATION WITH RAPID VENTRICULAR RESPONSE WITH PREMATURE VENTRICULAR OR ABERRANTLY CONDUCTED COMPLEXES LEFT AXIS DEVIATION NON-SPECIFIC INTRA-VENTRICULAR CONDUCTION BLOCK ABNORMAL QRS-T ANGLE, CONSIDER PRIMARY T WAVE ABNORMALITY ABNORMAL ECG NO PREVIOUS ECGS AVAILABLE Confirmed by NASIMA AMANDA MD ([id number]) on 01/12/2019 3:30:02 PM Referred By: Confirmed By:NASIMA AMANDA MD
--- NOTE | 2019-01-12 15:56 | CONSULT ---
Consult Consult Specialty:: Nephrology Reason for Consultation:: CKD - History of Present Illness Chief Complaint: abd pain History of Present Illness: Pt is a 78 y/o M w/ PMHx HTN, CKD, and AFib on Eliquis, a/w diarrhea. He presented to the office yesterday with abdominal pain. He had vomiting and diarrhea. He appears very dehydrated and was taking his lasix as well. Pt found to have dawna-rectal abscess here. He felt better after getting fluids as well. His INR is elevated. He denies chest pain or shortness of breath. - History Source History Provided By: Patient - Past Medical History Cardio/Vascular: Yes: AFIB, HTN Renal/: Yes: Renal Inusuff, Other (CKD) - Past Surgical History Past Surgical History: Yes: None - Alcohol/Substance Use Hx Alcohol Use: Yes - Smoking History Smoking history: Never smoked Have you smoked in the past 12 months: No - Social History ADL: Independent History of Recent Travel: No Home Medications - Allergies Allergies/Adverse Reactions: Allergies Allergy/AdvReac Type Severity Reaction Status Date / Time No Known Allergies Allergy Verified 01/11/19 15:34 - Home Medications Home Medications: Ambulatory Orders Apixaban [Eliquis] 5 mg PO BID 01/11/19 Atorvastatin Ca [Lipitor] 10 mg PO HS 01/11/19 Carvedilol 25 mg PO BID 01/11/19 Furosemide 80 mg PO DAILY 01/11/19 Furosemide [Lasix -] 40 mg PO BID 01/11/19 Hydralazine HCl 10 mg PO TID 01/11/19 Isosorbide Mononitrate [Imdur -] 30 mg PO DAILY 01/11/19 Sodium Bicarbonate - 2 tab PO TID 01/11/19 Spironolactone 25 mg PO DAILY 01/11/19 Family Disease History - Family Disease History Family History: Denies Review of Systems - Review of Systems Constitutional: reports: Chills, Malaise Eyes: reports: No Symptoms HENT: reports: No Symptoms Neck: reports: No Symptoms Cardiovascular: reports: No Symptoms Respiratory: reports: No Symptoms Gastrointestinal: reports: Abdominal Pain, Diarrhea, Vomiting Genitourinary: reports: No Symptoms Musculoskeletal: reports: No Symptoms Neurological: reports: No Symptoms Endocrine: reports: No Symptoms Hematology/Lymphatic: reports: No Symptoms Psychiatric: reports: No Symptoms Physical Exam Vital Signs: Vital Signs Temperature 98.2 F 01/12/19 13:45 Pulse Rate 87 01/12/19 13:09 Respiratory Rate 15 01/12/19 13:09 Blood Pressure 93/51 L 01/12/19 13:09 O2 Sat by Pulse Oximetry (%) 98 01/12/19 11:01 Constitutional: Yes: Calm Eyes: Yes: Conjunctiva Clear HENT: Yes: Atraumatic Neck: Yes: Supple Cardiovascular: Yes: S1, S2 Respiratory: Yes: CTA Bilaterally Gastrointestinal: Yes: Soft Renal/: Yes: WNL Musculoskeletal: Yes: WNL Edema: No Neurological: Yes: Oriented Psychiatric: Yes: Oriented Labs: CBC, BMP 01/12/19 06:09 01/12/19 06:09 Laboratory Tests 01/11/19 01/12/19 01/12/19 16:00 04:00 06:09 Creatinine 2.3 H 2.2 H Urine Protein 2+ H Imaging - Results Cat Scan: Report Reviewed Assessment/Plan Current Medications Generic Name Dose Route Start Last Admin Trade Name Davie PRN Reason Stop Dose Admin Acetaminophen 1,000 mg 01/12/19 02:28 01/12/19 06:36 Ofirmev Injection - IVPB 1,000 mg Q6H PRN Administration PAIN OR FEVER Sodium Chloride 1,000 mls @ 75 mls/hr 01/12/19 02:30 01/12/19 02:30 Normal Saline - IV 75 mls/hr ASDIR ARISTEO Administration Piperacillin Sod/Tazobactam 50 mls @ 100 mls/hr 01/12/19 10:00 01/12/19 09:30 Sod 3.375 gm/ Dextrose IVPB 100 mls/hr Q8H-IV ARISTEO Administration Protocol Metoprolol Tartrate 5 mg 01/12/19 02:30 Lopressor Injection - IVPUSH Q4H PRN HYPERTENSION Impression 1. CKD 2. CHF 3. a-fib 4. hx renal mass 5. dawna-rectal abscess 6. htn Plan - cont fluids - cont abx - eliquis on hold fo rnow - check inr as its elevated - lasix on hold
[2019-01-12] MEDS ORDERED: DEXTROSE 5%-WATER - 50 ML IVPB ONE (16:23)
[2019-01-12] MEDS ORDERED: PIPERACILLIN/TAZOBACTAM 3.375 GM VIAL IVPB ONE (16:23)
--- NOTE | 2019-01-12 16:23 | PN ---
Physical Exam: SUBJECTIVE: Patient seen and examined. Pt denied having any pain, fever. No acute complaints at the time.last diarrhea was 8pm last night OBJECTIVE: Vital Signs Period Temp Pulse Resp BP Sys/Finney Pulse Ox Last 24 Hr 98.1 F-100.0 F 80-124 15-21 93-106/51-76 95-100 GENERAL: The patient is awake, alert, and fully oriented, in no acute distress. HEAD: Normal with no signs of trauma. LUNGS: Breath sounds equal, clear to auscultation bilaterally, no wheezes, no crackles, no accessory muscle use. HEART: Regular rate and rhythm, S1, S2 without murmur, rub or gallop. ABDOMEN: Soft, nontender, nondistended, normoactive bowel sounds, no guarding, no rebound, no hepatosplenomegaly, no masses. EXTREMITIES: 2+ pulses, warm, well-perfused, no edema. SKIN: Warm, dry, normal turgor, perianal abscess with drainage Laboratory Results - last 24 hr 01/11/19 01/11/19 01/11/19 16:00 16:00 16:00 WBC 12.1 H RBC 3.38 L Hgb 10.0 L Hct 30.1 L MCV 88.9 MCH 29.5 MCHC 33.1 RDW 16.2 H Plt Count 134 MPV 8.4 Absolute Neuts (auto) 10.7 H Neutrophils % 88.2 H Lymphocytes % 3.7 L Monocytes % 8.0 Eosinophils % 0.0 Basophils % 0.1 Nucleated RBC % 0 ESR PT with INR 36.80 H INR 3.08 H Sodium 134 L Potassium 3.7 Chloride 100 Carbon Dioxide 24 Anion Gap 11 BUN 32.8 H Creatinine 2.3 H Est GFR (CKD-EPI)AfAm 30.17 Est GFR (CKD-EPI)NonAf 26.04 Random Glucose 90 Hemoglobin A1c % Lactic Acid Calcium 8.3 L Phosphorus Magnesium Total Bilirubin 2.2 H AST 29 ALT 11 L Alkaline Phosphatase 111 Troponin I C-Reactive Protein Total Protein 6.8 Albumin 2.7 L Lipase 116 Urine Color Urine Appearance Urine pH Ur Specific [place] Urine Protein Urine Glucose (UA) Urine Ketones Urine Blood Urine Nitrite Urine Bilirubin Urine Urobilinogen Ur Leukocyte Esterase Urine WBC (Auto) Urine RBC (Auto) Urine Casts (Auto) U Pathogenic Cast Auto U Epithel Cells (Auto) U Sm Round Cell (Auto) Urine Bacteria (Auto) Stool Occult Blood 01/11/19 01/11/19 01/12/19 16:00 22:30 04:00 WBC RBC Hgb Hct MCV MCH MCHC RDW Plt Count MPV Absolute Neuts (auto) Neutrophils % Lymphocytes % Monocytes % Eosinophils % Basophils % Nucleated RBC % ESR PT with INR INR Sodium Potassium Chloride Carbon Dioxide Anion Gap BUN Creatinine Est GFR (CKD-EPI)AfAm Est GFR (CKD-EPI)NonAf Random Glucose Hemoglobin A1c % Lactic Acid 1.4 Calcium Phosphorus Magnesium Total Bilirubin AST ALT Alkaline Phosphatase Troponin I C-Reactive Protein Total Protein Albumin Lipase Urine Color Dk yellow Urine Appearance Cloudy Urine pH 5.0 Ur Specific [place] 1.022 Urine Protein 2+ H Urine Glucose (UA) Negative Urine Ketones Trace H Urine Blood Negative Urine Nitrite Negative Urine Bilirubin 1+ H Urine Urobilinogen 1.0 Ur Leukocyte Esterase 1+ H Urine WBC (Auto) 15.2 Urine RBC (Auto) 3.1 Urine Casts (Auto) 0 U Pathogenic Cast Auto none seen U Epithel Cells (Auto) 18.3 U Sm Round Cell (Auto) none seen Urine Bacteria (Auto) 16.8 Stool Occult Blood Positive 01/12/19 01/12/19 01/12/19 04:26 06:09 06:09 WBC 11.8 H RBC 3.17 L Hgb 9.4 L Hct 28.0 L MCV 88.5 MCH 29.6 MCHC 33.5 RDW 16.2 H Plt Count 115 L MPV 8.2 Absolute Neuts (auto) 10.6 H Neutrophils % 89.3 H Lymphocytes % 2.7 L D Monocytes % 7.9 Eosinophils % 0.0 Basophils % 0.1 Nucleated RBC % 0 ESR 74 H PT with INR INR Sodium 136 Potassium 3.7 Chloride 105 Carbon Dioxide 21 Anion Gap 11 BUN 34.0 H Creatinine 2.2 H Est GFR (CKD-EPI)AfAm 31.84 Est GFR (CKD-EPI)NonAf 27.47 Random Glucose 77 Hemoglobin A1c % Lactic Acid Calcium 8.0 L Phosphorus 2.8 Magnesium 2.0 Total Bilirubin 2.1 H AST 28 ALT 12 L Alkaline Phosphatase 101 Troponin I 0.16 H C-Reactive Protein 15.5 H Total Protein 6.2 L Albumin 2.4 L Lipase Urine Color Urine Appearance Urine pH Ur Specific [place] Urine Protein Urine Glucose (UA) Urine Ketones Urine Blood Urine Nitrite Urine Bilirubin Urine Urobilinogen Ur Leukocyte Esterase Urine WBC (Auto) Urine RBC (Auto) Urine Casts (Auto) U Pathogenic Cast Auto U Epithel Cells (Auto) U Sm Round Cell (Auto) Urine Bacteria (Auto) Stool Occult Blood 01/12/19 06:09 WBC RBC Hgb Hct MCV MCH MCHC RDW Plt Count MPV Absolute Neuts (auto) Neutrophils % Lymphocytes % Monocytes % Eosinophils % Basophils % Nucleated RBC % ESR PT with INR INR Sodium Potassium Chloride Carbon Dioxide Anion Gap BUN Creatinine Est GFR (CKD-EPI)AfAm Est GFR (CKD-EPI)NonAf Random Glucose Hemoglobin A1c % 5.9 Lactic Acid Calcium Phosphorus Magnesium Total Bilirubin AST ALT Alkaline Phosphatase Troponin I C-Reactive Protein Total Protein Albumin Lipase Urine Color Urine Appearance Urine pH Ur Specific [place] Urine Protein Urine Glucose (UA) Urine Ketones Urine Blood Urine Nitrite Urine Bilirubin Urine Urobilinogen Ur Leukocyte Esterase Urine WBC (Auto) Urine RBC (Auto) Urine Casts (Auto) U Pathogenic Cast Auto U Epithel Cells (Auto) U Sm Round Cell (Auto) Urine Bacteria (Auto) Stool Occult Blood Active Medications Generic Name Dose Route Start Last Admin Trade Name Freq PRN Reason Stop Dose Admin Acetaminophen 1,000 mg 01/12/19 02:28 01/12/19 06:36 Ofirmev Injection - IVPB 1,000 mg Q6H PRN Administration PAIN OR FEVER Sodium Chloride 1,000 mls @ 75 mls/hr 01/12/19 02:30 01/12/19 02:30 Normal Saline - IV 75 mls/hr ASDIR ARISTEO Administration Piperacillin Sod/Tazobactam 50 mls @ 100 mls/hr 01/12/19 10:00 01/12/19 09:30 Sod 3.375 gm/ Dextrose IVPB 100 mls/hr Q8H-IV ARISTEO Administration Protocol Metoprolol Tartrate 5 mg 01/12/19 02:30 Lopressor Injection - IVPUSH Q4H PRN HYPERTENSION ASSESSMENT/PLAN: 78 y/o M w/ PMHx HTN, CKD, and AFib on Eliquis with diarrhea. Sepsis Perirectal abcess vs gastroenteritis CT prelim report: mass surrounding coccyx involving ischiorectal & R buttock fat Blood Cx pending stool cypro and giarda negative/other pending/ C. diff antigen and toxin ordered urine cx pending Per ID IV zosyn Surgery (Dr. 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 Hu, no acute intervention recommended Anemia Likely 2/2 CKD H&H 10.0/30.1 FOBT negative ESR 74 CKD Bun:Cr 34/2.2 CT prelim report: calcified R renal mass Nephro consulted AFib with RVR held Eliquis 5mg BD, (INR 3.8, high GFR) tachycardic, put on Lopressor 5mg IV Q4H PRN FOBT positive Echo severe LV concentric hypertrophy. Severe global hypokinesis of LV. RV mild dilated. RV is midly dilated& systolic function reduced. LA & RA dilated.trace MR. Mod TR. RV pressure elevated to 40-50 mmHg. MIld AR. Severely dilated IVC. HTN Will hold home meds due to hypotension Monitor BP DVT PPX SCDs Visit type - Emergency Visit Emergency Visit: Yes ED Registration Date: 01/12/19 Care time: The patient presented to the Emergency Department on the above date and was hospitalized for further evaluation of their emergent condition. - New Patient This patient is new to me today: Yes Date on this admission: 01/12/19 - Critical Care Critical Care patient: No - Discharge Referral Referred to [facility] Med P.C.: No ATTENDING PHYSICIAN STATEMENT I saw and evaluated the patient. I reviewed the resident's note and discussed the case with the resident. I agree with the resident's findings and plan as documented. SUBJECTIVE: OBJECTIVE: ASSESSMENT AND PLAN:
--- NOTE | 2019-01-12 16:51 | PN ---
Progress Note (short form) - Note Progress Note: ID consult dictated 78 yo man with known renal mass- stable per imaging per Dr Yanes approximately 6-9 months ago at [facility] admitted with nonbloodydiarrhea, loss of appetite and fevers at home- was taking his lasix- noted right buttock pain during this time as well no rigors no urinary symptoms no vomiting on exam he has right buttock induration extending medially, no induration of the left buttock, no scrotal involvement no crepitus he has diffuse adenopathy- bilateral axillary and bilateral inguinal adenopathy on exam probable gluteal abscess - gives history of prior mass right buttock many years ago r/o malignancy with diffuse adenopathy diarrhea-appears to be resolving anemia/thrombocytopenia ckd afib on eliquis abdominal aneurysm renal mass continue zosyn for polymicrobial antibiotic coverage for perirectal/gluteal abscess- await surgery evaluation vancomycin one dose given ckd could biopsy peripheral LN stool and blood cultures pending check hiv- patient consents check ldh- ?lymphoma will follow with you Problem List - Problems (1) Abscess, gluteal, right Code(s): L02.31 - CUTANEOUS ABSCESS OF BUTTOCK (2) Adenopathy Code(s): R59.1 - GENERALIZED ENLARGED LYMPH NODES (3) Diarrhea Code(s): R19.7 - DIARRHEA, UNSPECIFIED (4) Anemia Code(s): D64.9 - ANEMIA, UNSPECIFIED (5) Thrombocytopenia Code(s): D69.6 - THROMBOCYTOPENIA, UNSPECIFIED (6) CKD (chronic kidney disease) Code(s): N18.9 - CHRONIC KIDNEY DISEASE, UNSPECIFIED (7) Renal mass Code(s): N28.89 - OTHER SPECIFIED DISORDERS OF KIDNEY AND URETER
[2019-01-12] MEDS ORDERED: VANCOMYCIN 1 GRAM (PRE-DOCKED) 1,000 MG/250 ML BAG IVPB ONE (16:54)
[2019-01-12] MEDS ORDERED: PHYTONADIONE 5 MG TABLET PO ONE (17:21)
--- NOTE | 2019-01-12 19:02 | CONS ---
DATE OF CONSULTATION: DATE OF DICTATION: 01/12/2019 INFECTIOUS DISEASE CONSULTATION HISTORY OF PRESENT ILLNESS: This is a 78-year-old man with a known renal mass which has been stable per imaging per Dr. Yanes approximately 6 to 9 months ago at [facility]. He is admitted with nonbloody diarrhea, loss of appetite, and fevers at home. This has all been going on for the last 5-6 days. At the beginning when he started having diarrhea, he felt like he had fever at home. He subsequently was afraid to eat, because it gave him diarrhea. He stopped eating. He lost his appetite. He continued to take his diuretics during that time. At the same time he noted he developed right buttock discomfort and pain. He denies any rigors. He has no urinary symptoms. He denies any vomiting. He was seen yesterday by Dr. Yanes, noted to be extremely dehydrated and sent to the emergency room. PAST MEDICAL HISTORY: History of hypertension, CKD and atrial fibrillation. In the emergency room, he was noted to have rapid atrial fibrillation with rapid ventricular response. He was given fluids of 3 L of normal saline and ciprofloxacin/metronidazole. He had a CAT scan done that was notable for possible adenopathy and aortoiliac aneurysm and calcified right renal mass and ischiorectal changes that are soft tissue mass, ventral to the coccyx, was identified. The patient reports his diarrhea has improved. MEDICATION: At home include hydralazine, furosemide, Coreg, Lipitor, Eliquis, sodium bicarbonate, isosorbide, and spironolactone. SURGICAL HISTORY: He reports many, many years ago, he had he says a mass in his right buttock that was excised. SOCIAL HISTORY: He is retired. He is originally from [place]. He lives with his . He stopped smoking 60 years ago. 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 He has 5 daughters and multiple grandchildren. There is no history of any travel. He has never been outside the [place]. He has no pets. REVIEW OF SYSTEMS: Notable for the fact his diarrhea has improved. He overall is feeling better after receiving fluids. He is not vomiting. His abdominal pain is resolved. PHYSICAL EXAMINATION: Vital Signs: T-max was 101 on admission, temperature now is 98.2, pulse of 87 irregular, blood pressure is 93/51, respiratory rate of 15, saturating 98% on room air. General: He is ambulating to the bathroom and back. HEENT: Normocephalic. Eyes are anicteric. He has no thrush or pharyngitis. Lungs: Clear to auscultation. Heart: Irregularly irregular. Abdomen: Soft, nontender. Extremities: Without edema. His right buttock is indurated. There is no extension to his scrotum. He has bilateral axillary and inguinal adenopathy as well. LABORATORY: Notable for a white count of 11.8, today 12.1, on admission hemoglobin is 9.4, platelets of 115. INR is 3. BUN and creatinine are 34 and 2.2. LFTs are normal except for a bilirubin of 2.1. Troponin is 0.16. Urinalysis has 1+ leukocytes and 15 white cells. Cultures of blood, urine are all pending, as well as stool. IMAGING STUDIES: As stated before. CAT scan also along with showing the aneurysm, and a soft tissue mass ventral to the coccyx, cannot rule out retroperitoneal adenopathy. He has a right calcified mass as well. IMPRESSION: In summary, this is a 78-year-old man with probable gluteal abscess given history of prior mass in that same buttock many years ago. Rule out malignancy with diffuse adenopathy. Diarrhea appears to be resolving. Anemia, thrombocytopenia, chronic kidney disease, atrial fibrillation on Eliquis, abdominal aneurysm. Continue Zosyn for polymicrobial antibiotic coverage for perirectal gluteal abscess. Would give 1 dose of vancomycin given the chronic kidney disease. Would suggest biopsy of peripheral lymph nodes. Stool and blood cultures are pending. Will check human immunodeficiency virus, patient has consented, and will check a for possible lymphoma. Will follow with you. This was discussed with the hospitalist service. JESSICA VALENTINE M.D. [id number]
--- NOTE | 2019-01-12 21:36 | PN ---
Teaching Attending Note Name of Resident: Miracle Flores ATTENDING PHYSICIAN STATEMENT I saw and evaluated the patient. I reviewed the resident's note and discussed the case with the resident. I agree with the resident's findings and plan as documented. SUBJECTIVE: Patient is feeling tired. no acute distress, no nausea or vomiting. OBJECTIVE: Vital Signs Temperature 98.9 F 01/12/19 19:25 Pulse Rate 108 H 01/12/19 19:25 Respiratory Rate 22 H 01/12/19 19:25 Blood Pressure 112/76 01/12/19 19:25 O2 Sat by Pulse Oximetry (%) 96 01/12/19 19:34 GENERAL: The patient is awake, alert, and fully oriented, in no acute distress. HEAD: Normal with no signs of trauma. EYES: PERRL, extraocular movements intact, sclera anicteric, conjunctiva clear. ENT: Ears normal, oropharynx clear without exudates, moist mucous membranes. NECK: Trachea midline, full range of motion, supple. LUNGS: Breath sounds equal, clear to auscultation bilaterally, no wheezes, no crackles, no accessory muscle use. HEART: Regular rate and rhythm, S1, S2 without murmur, rub or gallop. ABDOMEN: Soft, nontender, nondistended, normoactive bowel sounds, no guarding, no rebound, no hepatosplenomegaly, no masses. EXTREMITIES: 2+ pulses, warm, well-perfused, no edema. diffuse adenopathy- bilateral axillary and bilateral inguinal adenopathy NEUROLOGICAL: Cranial nerves II through XII grossly intact. Normal speech, gait not observed. PSYCH: Normal mood, normal affect. SKIN: Warm, dry, normal turgor, no rashes or lesions noted Exam: right buttock induration extending medially draining, no induration of the left buttock, no scrotal involvement WBC 11.8 K/mm3 (4.0-10.0) H 01/12/19 06:09 RBC 3.17 M/mm3 (4.00-5.60) L 01/12/19 06:09 Hgb 9.4 GM/dL (11.7-16.9) L 01/12/19 06:09 Hct 28.0 % (35.4-49) L 01/12/19 06:09 MCV 88.5 fl (80-96) 01/12/19 06:09 MCHC 33.5 g/dl (32.0-35.9) 01/12/19 06:09 RDW 16.2 % (11.9-15.9) H 01/12/19 06:09 Plt Count 115 K/MM3 (134-434) L 01/12/19 06:09 MPV 8.2 fl (7.5-11.1) 01/12/19 06:09 CMP Sodium 136 mmol/L (136-145) 01/12/19 06:09 Potassium 3.7 mmol/L (3.5-5.1) 01/12/19 06:09 Chloride 105 mmol/L (98-107) 01/12/19 06:09 Carbon Dioxide 21 mmol/L (21-32) 01/12/19 06:09 Anion Gap 11 MMOL/L (8-16) 01/12/19 06:09 BUN 34.0 mg/dL (7-18) H 01/12/19 06:09 Creatinine 2.2 mg/dL (0.55-1.3) H 01/12/19 06:09 Random Glucose 77 mg/dL (74-106) 01/12/19 06:09 Calcium 8.0 mg/dL (8.5-10.1) L 01/12/19 06:09 Total Bilirubin 2.1 mg/dL (0.2-1) H 01/12/19 06:09 AST 28 U/L (15-37) 01/12/19 06:09 ALT 12 U/L (13-61) L 01/12/19 06:09 Alkaline Phosphatase 101 U/L (45-117) 01/12/19 06:09 Total Protein 6.2 g/dl (6.4-8.2) L 01/12/19 06:09 Albumin 2.4 g/dl (3.4-5.0) L 01/12/19 06:09 CARDIAC ENZYMES Troponin I 0.16 ng/ml (0.00-0.05) H 01/12/19 04:26 Current Medications Generic Name Dose Route Start Last Admin Trade Name Freq PRN Reason Stop Dose Admin Acetaminophen 1,000 mg 01/12/19 02:28 01/12/19 06:36 Ofirmev Injection - IVPB 1,000 mg Q6H PRN Administration PAIN OR FEVER Sodium Chloride 1,000 mls @ 75 mls/hr 01/12/19 02:30 01/12/19 02:30 Normal Saline - IV 75 mls/hr ASDIR ARISTEO Administration Piperacillin Sod/Tazobactam 50 mls @ 100 mls/hr 01/12/19 10:00 01/12/19 17:54 Sod 3.375 gm/ Dextrose IVPB 100 mls/hr Q8H-IV ARISTEO Administration Protocol Metoprolol Tartrate 5 mg 01/12/19 02:30 Lopressor Injection - IVPUSH Q4H PRN HYPERTENSION Home Medications Medication Instructions Recorded Apixaban [Eliquis] 5 mg PO BID 01/11/19 Atorvastatin Ca [Lipitor] 10 mg PO HS 01/11/19 Carvedilol 25 mg PO BID 01/11/19 Furosemide 80 mg PO DAILY 01/11/19 Furosemide [Lasix -] 40 mg PO BID 01/11/19 Hydralazine HCl 10 mg PO TID 01/11/19 Isosorbide Mononitrate [Imdur -] 30 mg PO DAILY 01/11/19 Sodium Bicarbonate - 2 tab PO TID 01/11/19 Spironolactone 25 mg PO DAILY 01/11/19 ASSESSMENT AND PLAN: Patient is a 78 year old male with PMHx significant for HTN, CKD, and AFib. He presented today from home with complaints of diarrhea for the past 4-5 days after eating old meat(beef) from the refrigerator. #Right gluteal Abscess : consulted and ID . once INR below 1.5 will take him to I&D , given vit K 5mg ,ID on the case on IV antibiotics on Zosyn . # Elevated INR on Eliquis will hold, Pt/inr in am, vit K oral 5mg ordered, cbc in am # Adenopathy: generalized enlarged LYMPH NODES will need to be biopsied discussed with . #Diarrhea will monitor # Anemia on Eliquis will monitor # Thrombocytopenia 115K # CKD (chronic kidney disease) # Hx of Renal mass DVT Px: SCds , on Eliquis on hold due to having procedure and elevated INR, repeat inr in am.
[2019-01-13] MEDS ORDERED: DEXTROSE 5%-WATER - 50 ML IVPB ONE ×3 (02:50→18:39)
[2019-01-13] MEDS ORDERED: PIPERACILLIN/TAZOBACTAM 3.375 GM VIAL IVPB ONE ×3 (02:50→18:38)
[2019-01-13] MEDS: PIPERACILLIN/TAZOB 3.375 GM 3.375 GM in DEXTROSE 5%-WATER - 50 ML IVPB SCH ×3 (02:53→18:59)
[2019-01-13 08:22] LABS: BASO % 0.1 % (0-2.0); EOS % 0.1 % (0-4.5); HEMATOCRIT 29.4 % (35.4-49); LYMPH % 2.5 % (8-40); MCHC 34.1 g/dl (32.0-35.9); MEAN CELL VOLUME 88.2 fl (80-96); MEAN PLT VOLUME 8.4 fl (7.5-11.1); MONO % 6.7 % (3.8-10.2); NEUT % 90.6 % (42.8-82.8); PLATELET COUNT 127 K/MM3 (134-434); RBC 3.33 M/mm3 (4.00-5.60); RDW 16.6 % (11.9-15.9); WHITE BLOOD COUNT 12.1 K/mm3 (4.0-10.0)
[2019-01-13 08:25] LABS: INR 2.81 (0.83-1.09); PROTHROMBIN TIME (PATIENT) 33.5 SEC (9.7-13.0)
[2019-01-13 08:32] LABS: ALBUMIN 2.3 g/dl (3.4-5.0); ALK PHOS 100 U/L (45-117); ANION GAP 10 MMOL/L (8-16); BILIRUBIN,TOTAL 1.9 mg/dL (0.2-1); BLOOD UREA NITROGEN 40.6 mg/dL (7-18); CALCIUM 7.8 mg/dL (8.5-10.1); CHLORIDE 105 mmol/L (98-107); CO2 21 mmol/L (21-32); CREATININE 2.2 mg/dL (0.55-1.3); GLUCOSE,RANDOM 80 mg/dL (74-106); LDH 151 U/L (87-246); SGOT/AST 29 U/L (15-37); SGPT/ALT 11 U/L (13-61); SODIUM 136 mmol/L (136-145); TOT PROT 6.1 g/dl (6.4-8.2)
--- NOTE | 2019-01-13 09:53 | PN ---
Progress Note, Physician Chief Complaint: GI FOLLOW UP NOTE Patient examined and case discussed with Dr Auguste Patient denies further episodes of diarrhea. Denies abdominal pain, nausea, vomiting, rectal bleeding or melena. Patient denies further complaints of rectal pain and is refusing rectal exam. - Current Medication List Current Medications: Active Medications Acetaminophen (Ofirmev Injection -) 1,000 mg IVPB Q6H PRN PRN Reason: PAIN OR FEVER Last Admin: 01/12/19 06:36 Dose: 1,000 mg Atorvastatin Calcium (Lipitor -) 10 mg PO HS ARISTEO Carvedilol (Coreg -) 25 mg PO BID ARISTEO Sodium Chloride (Normal Saline -) 1,000 mls @ 75 mls/hr IV ASDIR ARISTEO Last Admin: 01/12/19 02:30 Dose: 75 mls/hr Piperacillin Sod/Tazobactam (Sod 3.375 gm/ Dextrose) 50 mls @ 100 mls/hr IVPB Q8H-IV ARISTEO; Protocol Last Admin: 01/13/19 02:53 Dose: 100 mls/hr Spironolactone (Aldactone -) 25 mg PO DAILY [facility] - Objective Vital Signs: Vital Signs Temperature 98.1 F 01/13/19 06:00 Pulse Rate 100 H 01/13/19 06:00 Respiratory Rate 18 01/13/19 06:00 Blood Pressure 98/81 01/13/19 06:00 O2 Sat by Pulse Oximetry (%) 95 01/12/19 21:00 Constitutional: Yes: No Distress, Calm Eyes: Yes: Conjunctiva Clear HENT: Yes: Atraumatic Cardiovascular: Yes: Regular Rate and Rhythm Respiratory: Yes: Regular, CTA Bilaterally Gastrointestinal: Yes: Normal Bowel Sounds, Soft Neurological: Yes: Alert Psychiatric: Yes: Alert Labs: CBC, BMP 01/13/19 06:38 01/13/19 06:38 INR, PTT INR 2.81 (0.83-1.09) H 01/13/19 06:38 Active Medications Generic Name Dose Route Start Last Admin Trade Name Freq PRN Reason Stop Dose Admin Acetaminophen 1,000 mg 01/12/19 02:28 01/12/19 06:36 Ofirmev Injection - IVPB 1,000 mg Q6H PRN Administration PAIN OR FEVER Atorvastatin Calcium 10 mg 01/13/19 22:00 Lipitor - PO HS ARISTEO Carvedilol 25 mg 01/13/19 10:00 Coreg - PO BID ARISTEO Sodium Chloride 1,000 mls @ 75 mls/hr 01/12/19 02:30 01/12/19 02:30 Normal Saline - IV 75 mls/hr ASDIR ARISTEO Administration Piperacillin Sod/Tazobactam 50 mls @ 100 mls/hr 01/12/19 10:00 01/13/19 02:53 Sod 3.375 gm/ Dextrose IVPB 100 mls/hr Q8H-IV ARISTEO Administration Protocol Spironolactone 25 mg 01/13/19 10:00 Aldactone - PO DAILY ARISTEO <Shae Key - Last Filed: 01/13/19 09:48> - Current Medication List Current Medications: Active Medications Acetaminophen (Ofirmev Injection -) 1,000 mg IVPB Q6H PRN PRN Reason: PAIN OR FEVER Last Admin: 01/12/19 06:36 Dose: 1,000 mg Atorvastatin Calcium (Lipitor -) 10 mg PO HS ARISTEO Carvedilol (Coreg -) 25 mg PO BID ARISTEO Last Admin: 01/13/19 09:55 Dose: 25 mg Sodium Chloride (Normal Saline -) 1,000 mls @ 75 mls/hr IV ASDIR ARISTEO Last Admin: 01/13/19 09:54 Dose: Not Given Piperacillin Sod/Tazobactam (Sod 3.375 gm/ Dextrose) 50 mls @ 100 mls/hr IVPB Q8H-IV ARISTEO; Protocol Last Admin: 01/13/19 09:55 Dose: 100 mls/hr Spironolactone (Aldactone -) 25 mg PO DAILY ARISTEO Last Admin: 01/13/19 09:54 Dose: 25 mg - Objective Vital Signs: Vital Signs Temperature 98.2 F 01/13/19 14:00 Pulse Rate 125 H 01/13/19 14:00 Respiratory Rate 18 01/13/19 14:00 Blood Pressure 113/70 01/13/19 14:00 O2 Sat by Pulse Oximetry (%) 95 01/12/19 21:00 Labs: CBC, BMP 01/13/19 06:38 01/13/19 06:38 INR, PTT INR 2.81 (0.83-1.09) H 01/13/19 06:38 <Se Auguste - Last Filed: 01/13/19 16:52> Problem List - Problems (1) Abscess, gluteal, right Assessment/Plan: >Surgery on board >CT scan hows precoccygeal mass extending and surrounding the distal coccyx >ID on board >continue IV antibiotics Code(s): L02.31 - CUTANEOUS ABSCESS OF BUTTOCK (2) Diarrhea Assessment/Plan: >stool cultures, O&P pending >IV hydration >IV ABT Code(s): R19.7 - DIARRHEA, UNSPECIFIED <Shae Key - Last Filed: 01/13/19 09:48> - Problems (1) Diarrhea Code(s): R19.7 - DIARRHEA, UNSPECIFIED <Se Auguste - Last Filed: 01/13/19 16:52>
[2019-01-13] MEDS: SODIUM CHLORIDE 1,000 ML IV SCH (09:54)
[2019-01-13] MEDS: SPIRONOLACTONE 25 MG TABLET (FP) PO SCH (09:54)
[2019-01-13] MEDS: CARVEDILOL 25 MG TABLET (FP) PO SCH ×2 (09:55→21:27)
--- NOTE | 2019-01-13 12:42 | PN ---
Progress Note, Physician History of Present Illness: Pt seen and examined at bedside. He is awake and alert. He denies shortness of breath. - Current Medication List Current Medications: Active Medications Acetaminophen (Ofirmev Injection -) 1,000 mg IVPB Q6H PRN PRN Reason: PAIN OR FEVER Last Admin: 01/12/19 06:36 Dose: 1,000 mg Atorvastatin Calcium (Lipitor -) 10 mg PO HS ARISTEO Carvedilol (Coreg -) 25 mg PO BID ARISTEO Last Admin: 01/13/19 09:55 Dose: 25 mg Sodium Chloride (Normal Saline -) 1,000 mls @ 75 mls/hr IV ASDIR ARISTEO Last Admin: 01/13/19 09:54 Dose: Not Given Piperacillin Sod/Tazobactam (Sod 3.375 gm/ Dextrose) 50 mls @ 100 mls/hr IVPB Q8H-IV ARISTEO; Protocol Last Admin: 01/13/19 09:55 Dose: 100 mls/hr Spironolactone (Aldactone -) 25 mg PO DAILY ARISTEO Last Admin: 01/13/19 09:54 Dose: 25 mg - Objective Vital Signs: Vital Signs Temperature 98.1 F 01/13/19 06:00 Pulse Rate 100 H 01/13/19 06:00 Respiratory Rate 18 01/13/19 06:00 Blood Pressure 98/81 01/13/19 06:00 O2 Sat by Pulse Oximetry (%) 95 01/12/19 21:00 Constitutional: Yes: Calm Eyes: Yes: Conjunctiva Clear HENT: Yes: Atraumatic Cardiovascular: Yes: S1, S2 Gastrointestinal: Yes: WNL Genitourinary: Yes: WNL Edema: Yes Edema: LLE: Trace, RLE: Trace Neurological: Yes: Oriented Psychiatric: Yes: Oriented Labs: CBC, BMP 01/13/19 06:38 01/13/19 06:38 INR, PTT INR 2.81 (0.83-1.09) H 01/13/19 06:38 Assessment/Plan Current Medications Generic Name Dose Route Start Last Admin Trade Name Freq PRN Reason Stop Dose Admin Acetaminophen 1,000 mg 01/12/19 02:28 01/12/19 06:36 Ofirmev Injection - IVPB 1,000 mg Q6H PRN Administration PAIN OR FEVER Atorvastatin Calcium 10 mg 01/13/19 22:00 Lipitor - PO HS ARISTEO Carvedilol 25 mg 01/13/19 10:00 01/13/19 09:55 Coreg - PO 25 mg BID ARISTEO Administration Sodium Chloride 1,000 mls @ 75 mls/hr 01/12/19 02:30 01/13/19 09:54 Normal Saline - IV Not Given ASDIR ARISTEO Piperacillin Sod/Tazobactam 50 mls @ 100 mls/hr 01/12/19 10:00 01/13/19 09:55 Sod 3.375 gm/ Dextrose IVPB 100 mls/hr Q8H-IV ARISTEO Administration Protocol Spironolactone 25 mg 01/13/19 10:00 01/13/19 09:54 Aldactone - PO 25 mg DAILY ARISTEO Administration Impression 1. CKD 2. CHF 3. a-fib 4. hx renal mass 5. dawna-rectal abscess 6. htn Plan - can stop fluids - pt tolerating diet - monitor inr - surgery follow up - monitor labs - will follow PRN
--- NOTE | 2019-01-13 13:16 | PN ---
Physical Exam: SUBJECTIVE: Patient seen and examined. He had 2 episodes of nonbloody diarrhea overnight. Otherwise he denied any fever or pain. OBJECTIVE: Vital Signs Period Temp Pulse Resp BP Sys/Finney Pulse Ox Last 24 Hr 98.1 F-98.9 F 71-121 18-22 88-112/60-81 95-96 GENERAL: The patient is awake, alert, and fully oriented, in no acute distress. HEAD: Normal with no signs of trauma. LUNGS: Breath sounds equal, clear to auscultation bilaterally, no wheezes, no crackles, no accessory muscle use. HEART: Regular rate and rhythm, S1, S2 without murmur, rub or gallop. ABDOMEN: Soft, nontender, nondistended, normoactive bowel sounds, no guarding, no rebound, no hepatosplenomegaly, no masses. EXTREMITIES: 2+ pulses, warm, well-perfused, no edema. SKIN: Warm, dry, normal turgor, draining perianal abscess Laboratory Results - last 24 hr 01/13/19 01/13/19 01/13/19 06:38 06:38 06:38 WBC 12.1 H RBC 3.33 L Hgb 10.0 L Hct 29.4 L MCV 88.2 MCH 30.0 MCHC 34.1 RDW 16.6 H Plt Count 127 L MPV 8.4 Absolute Neuts (auto) 11.0 H Neutrophils % 90.6 H Lymphocytes % 2.5 L Monocytes % 6.7 Eosinophils % 0.1 D Basophils % 0.1 Nucleated RBC % 0 PT with INR INR Sodium 136 Potassium 4.0 Chloride 105 Carbon Dioxide 21 Anion Gap 10 BUN 40.6 H Creatinine 2.2 H Est GFR (CKD-EPI)AfAm 31.84 Est GFR (CKD-EPI)NonAf 27.47 Random Glucose 80 Calcium 7.8 L Total Bilirubin 1.9 H AST 29 ALT 11 L Alkaline Phosphatase 100 LD Total 151 Creatine Kinase 164 Creatine Kinase Index No Result Required. CK-MB (CK-2) < 1.0 Troponin I 0.11 H Total Protein 6.1 L Albumin 2.3 L Random Vancomycin 8.0 L HIV 1&2 Antibody Screen HIV P24 Antigen 01/13/19 01/13/19 06:38 06:38 WBC RBC Hgb Hct MCV MCH MCHC RDW Plt Count MPV Absolute Neuts (auto) Neutrophils % Lymphocytes % Monocytes % Eosinophils % Basophils % Nucleated RBC % PT with INR 33.50 H INR 2.81 H Sodium Potassium Chloride Carbon Dioxide Anion Gap BUN Creatinine Est GFR (CKD-EPI)AfAm Est GFR (CKD-EPI)NonAf Random Glucose Calcium Total Bilirubin AST ALT Alkaline Phosphatase LD Total Creatine Kinase Creatine Kinase Index CK-MB (CK-2) Troponin I Total Protein Albumin Random Vancomycin HIV 1&2 Antibody Screen Negative HIV P24 Antigen Negative Active Medications Generic Name Dose Route Start Last Admin Trade Name Freq PRN Reason Stop Dose Admin Acetaminophen 1,000 mg 01/12/19 02:28 01/12/19 06:36 Ofirmev Injection - IVPB 1,000 mg Q6H PRN Administration PAIN OR FEVER Atorvastatin Calcium 10 mg 01/13/19 22:00 Lipitor - PO HS ARISTEO Carvedilol 25 mg 01/13/19 10:00 01/13/19 09:55 Coreg - PO 25 mg BID ARISTEO Administration Sodium Chloride 1,000 mls @ 75 mls/hr 01/12/19 02:30 01/13/19 09:54 Normal Saline - IV Not Given ASDIR ARISTEO Piperacillin Sod/Tazobactam 50 mls @ 100 mls/hr 01/12/19 10:00 01/13/19 09:55 Sod 3.375 gm/ Dextrose IVPB 100 mls/hr Q8H-IV ARISTEO Administration Protocol Spironolactone 25 mg 01/13/19 10:00 01/13/19 09:54 Aldactone - PO 25 mg DAILY ARISTEO Administration ASSESSMENT/PLAN: 78 y/o M w/ PMHx HTN, CKD, and AFib on Eliquis with diarrhea. Sepsis Perirectal abcess vs gastroenteritis CT prelim report: mass surrounding coccyx involving ischiorectal & R buttock fat Blood Cx nrgative for one day stool cypro and giarda negative others pending final results C. diff antigen and toxin ordered urine cx no growth Per ID IV zosyn FOBT positive Pt mentioned that he doesnt want any surgical intervention. 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 Hu, no acute intervention recommended Anemia Likely 2/2 CKD H&H 10.0/29.4 ESR 74 CKD Bun:Cr 40.6/2.2 CT prelim report: calcified R renal mass Nephro consulted and will follow PRN AFib with RVR d/c Eliquis 5mg BD, (INR 3.8, high GFR) today INR 2.81 FOBT positive HTN Will hold home meds due to hypotension Monitor BP Fluids running DVT PPX SCDs Visit type - Emergency Visit Emergency Visit: Yes ED Registration Date: 01/12/19 Care time: The patient presented to the Emergency Department on the above date and was hospitalized for further evaluation of their emergent condition. - New Patient This patient is new to me today: No - Critical Care Critical Care patient: No - Discharge Referral Referred to [facility] Med P.C.: No ATTENDING PHYSICIAN STATEMENT I saw and evaluated the patient. I reviewed the resident's note and discussed the case with the resident. I agree with the resident's findings and plan as documented. SUBJECTIVE: OBJECTIVE: ASSESSMENT AND PLAN:
--- NOTE | 2019-01-13 15:16 | PN ---
Progress Note (short form) - Note Progress Note: reports diarrhea improved Vital Signs Period Temp Pulse Resp BP Sys/Finney Pulse Ox Last 24 Hr 98.1 F-98.9 F 71-121 18-22 88-112/60-81 95-96 refuses exam CBC, BMP 01/13/19 06:38 01/13/19 06:38 Microbiology 01/11/19 22:29 Stool Salmonella/Shigella Culture - Preliminary NO ENTERIC PATHOGENS, 24 HOURS, ON PRIMARY PLATES 01/11/19 22:29 Stool Yersinia Culture - Preliminary NO ENTERIC PATHOGENS, 24 HOURS, ON PRIMARY PLATES 01/11/19 22:29 Stool Vibrio Culture - Final NO GROWTH OF VIBRIO SPECIES OBTAINED 01/11/19 22:29 Stool Escherichia coli 0157 Culture - Final NO GROWTH OF E COLI 0157 OBTAINED 01/12/19 04:00 Urine - Urine Clean Catch Urine Culture - Final NO GROWTH OBTAINED 01/11/19 16:00 Blood - Peripheral Venous Blood Culture - Preliminary NO GROWTH OBTAINED AFTER 24 HOURS, INCUBATION TO CONTINUE FOR 4 DAYS. 01/11/19 16:30 Blood - Peripheral Venous Blood Culture - Preliminary NO GROWTH OBTAINED AFTER 24 HOURS, INCUBATION TO CONTINUE FOR 4 DAYS. 01/11/19 22:30 Stool Cryptosporidium Antigen - Final 01/11/19 22:30 Stool Giardia Antigen (ELISEO) - Final probable gluteal abscess - gives history of prior mass right buttock many years ago r/o malignancy with diffuse adenopathy diarrhea-appears to be resolving anemia/thrombocytopenia ckd afib on eliquis abdominal aneurysm renal mass hiv negative ldh normal states he does not want surgery would continue zosyn at this time- he will not permit exam consider LN biopsy as well Problem List - Problems (1) Abscess, gluteal, right Code(s): L02.31 - CUTANEOUS ABSCESS OF BUTTOCK (2) Adenopathy Code(s): R59.1 - GENERALIZED ENLARGED LYMPH NODES (3) Diarrhea Code(s): R19.7 - DIARRHEA, UNSPECIFIED (4) Anemia Code(s): D64.9 - ANEMIA, UNSPECIFIED (5) Thrombocytopenia Code(s): D69.6 - THROMBOCYTOPENIA, UNSPECIFIED (6) CKD (chronic kidney disease) Code(s): N18.9 - CHRONIC KIDNEY DISEASE, UNSPECIFIED (7) Renal mass Code(s): N28.89 - OTHER SPECIFIED DISORDERS OF KIDNEY AND URETER
--- NOTE | 2019-01-13 16:05 | PN ---
Teaching Attending Note Name of Resident: Miracle Flores ATTENDING PHYSICIAN STATEMENT I saw and evaluated the patient. I reviewed the resident's note and discussed the case with the resident. I agree with the resident's findings and plan as documented. SUBJECTIVE: Patient is feeling better , has no diarrhea at this time. OBJECTIVE: Vital Signs Temperature 98.2 F 01/13/19 14:00 Pulse Rate 125 H 01/13/19 14:00 Respiratory Rate 18 01/13/19 14:00 Blood Pressure 113/70 01/13/19 14:00 O2 Sat by Pulse Oximetry (%) 95 01/12/19 21:00 GENERAL: The patient is awake, alert, and fully oriented, in no acute distress. HEAD: Normal with no signs of trauma. EYES: PERRL, extraocular movements intact, sclera anicteric, conjunctiva clear. ENT: Ears normal, oropharynx clear without exudates, moist mucous membranes. NECK: Trachea midline, full range of motion, supple. LUNGS: Breath sounds equal, clear to auscultation bilaterally, no wheezes, no crackles, no accessory muscle use. HEART: tachycardic rate of 125, S1, S2 without murmur, rub or gallop. ABDOMEN: Soft, nontender, nondistended, normoactive bowel sounds, no guarding, no rebound, no hepatosplenomegaly, no masses. EXTREMITIES: 2+ pulses, warm, well-perfused, no edema. diffuse adenopathy- bilateral axillary and bilateral inguinal adenopathy NEUROLOGICAL: Cranial nerves II through XII grossly intact. Normal speech, gait not observed. PSYCH: Normal mood, normal affect. SKIN: Warm, dry, normal turgor, no rashes or lesions noted Exam: right buttock induration extending medially continues to drain, no induration of the left buttock, no scrotal involvement CBCD WBC 12.1 K/mm3 (4.0-10.0) H 01/13/19 06:38 RBC 3.33 M/mm3 (4.00-5.60) L 01/13/19 06:38 Hgb 10.0 GM/dL (11.7-16.9) L 01/13/19 06:38 Hct 29.4 % (35.4-49) L 01/13/19 06:38 MCV 88.2 fl (80-96) 01/13/19 06:38 MCHC 34.1 g/dl (32.0-35.9) 01/13/19 06:38 RDW 16.6 % (11.9-15.9) H 01/13/19 06:38 Plt Count 127 K/MM3 (134-434) L 01/13/19 06:38 MPV 8.4 fl (7.5-11.1) 01/13/19 06:38 CMP Sodium 136 mmol/L (136-145) 01/13/19 06:38 Potassium 4.0 mmol/L (3.5-5.1) 01/13/19 06:38 Chloride 105 mmol/L (98-107) 01/13/19 06:38 Carbon Dioxide 21 mmol/L (21-32) 01/13/19 06:38 Anion Gap 10 MMOL/L (8-16) 01/13/19 06:38 BUN 40.6 mg/dL (7-18) H 01/13/19 06:38 Creatinine 2.2 mg/dL (0.55-1.3) H 01/13/19 06:38 Random Glucose 80 mg/dL (74-106) 01/13/19 06:38 Calcium 7.8 mg/dL (8.5-10.1) L 01/13/19 06:38 Total Bilirubin 1.9 mg/dL (0.2-1) H 01/13/19 06:38 AST 29 U/L (15-37) 01/13/19 06:38 ALT 11 U/L (13-61) L 01/13/19 06:38 Alkaline Phosphatase 100 U/L (45-117) 01/13/19 06:38 Total Protein 6.1 g/dl (6.4-8.2) L 01/13/19 06:38 Albumin 2.3 g/dl (3.4-5.0) L 01/13/19 06:38 CARDIAC ENZYMES Creatine Kinase 164 U/L (26-308) 01/13/19 06:38 Troponin I 0.11 ng/ml (0.00-0.05) H 01/13/19 06:38 Current Medications Generic Name Dose Route Start Last Admin Trade Name Freq PRN Reason Stop Dose Admin Acetaminophen 1,000 mg 01/12/19 02:28 01/12/19 06:36 Ofirmev Injection - IVPB 1,000 mg Q6H PRN Administration PAIN OR FEVER Atorvastatin Calcium 10 mg 01/13/19 22:00 Lipitor - PO HS ARISTEO Carvedilol 25 mg 01/13/19 10:00 01/13/19 09:55 Coreg - PO 25 mg BID ARISTEO Administration Sodium Chloride 1,000 mls @ 75 mls/hr 01/12/19 02:30 01/13/19 09:54 Normal Saline - IV Not Given ASDIR ARISTEO Piperacillin Sod/Tazobactam 50 mls @ 100 mls/hr 01/12/19 10:00 01/13/19 09:55 Sod 3.375 gm/ Dextrose IVPB 100 mls/hr Q8H-IV ARISTEO Administration Protocol Spironolactone 25 mg 01/13/19 10:00 01/13/19 09:54 Aldactone - PO 25 mg DAILY ARISTEO Administration Home Medications Medication Instructions Recorded Apixaban [Eliquis] 5 mg PO BID 01/11/19 Atorvastatin Ca [Lipitor] 10 mg PO HS 01/11/19 Carvedilol 25 mg PO BID 01/11/19 Furosemide 80 mg PO DAILY 01/11/19 Furosemide [Lasix -] 40 mg PO BID 01/11/19 Hydralazine HCl 10 mg PO TID 01/11/19 Isosorbide Mononitrate [Imdur -] 30 mg PO DAILY 01/11/19 Sodium Bicarbonate - 2 tab PO TID 01/11/19 Spironolactone 25 mg PO DAILY 01/11/19 CXR: large heart, no acute pathology CT abdomen and pelvis: Coccyx measuring 4.7x3.1x3.3cm, surronding adenopathy is suspected, bladder physiologically is distended, no bladder stones , spondylotic changes of the spine with no aggressive bone lesions seen, scoliosis convexity to the right is present. ASSESSMENT AND PLAN: Patient is a 78 year old male with PMHx significant for HTN, CKD, and AFib. He presented today from home with complaints of diarrhea for the past 4-5 days after eating old meat(beef) from the refrigerator. # Abscess of right gluteal: consulted and ID. once INR below 1.5 will take him to I&D , given vit K 5mg x2. ID on the case on IV antibiotics Zosyn as of today patient does not want the procedure. # Adenopathy: generalized enlarged LYMPH NODES # Hx of Afib rate is uncontrolled will continue his Coreg. and Eliquis is on hold due to elevated INR and patient is going for the procedure I&D and Lymph node Bx # Elevated INR on Eliquis will hold, Pt/inr in am, vit K oral 5mg x2 given , cbc in am #Diarrhea resolved # Anemia with normal MCV # Thrombocytopenia is improving 127k today # CKD (chronic kidney disease) # hx of Renal mass DVT Px: SCds , on Eliquis on hold due to having procedure and elevated INR, repeat inr in am.
[2019-01-13] MEDS: ATORVASTATIN CA 10 MG TABLET (FP) PO SCH (21:27)
[2019-01-14] MEDS ORDERED: PIPERACILLIN/TAZOBACTAM 3.375 GM VIAL IVPB ONE ×3 (01:27→16:23)
[2019-01-14] MEDS ORDERED: DEXTROSE 5%-WATER - 50 ML IVPB ONE ×3 (01:28→16:23)
[2019-01-14] MEDS: SODIUM CHLORIDE 1,000 ML IV SCH ×2 (02:00→22:05)
[2019-01-14] MEDS: PIPERACILLIN/TAZOB 3.375 GM 3.375 GM in DEXTROSE 5%-WATER - 50 ML IVPB SCH ×3 (02:00→17:28)
[2019-01-14 03:07] LABS: CARCINOEMBRYONIC ANTIGEN 1.8 ng/mL (0.0-4.7)
[2019-01-14 07:05] LABS: BASO % 0.2 % (0-2.0); EOS % 0.2 % (0-4.5); HEMATOCRIT 29.6 % (35.4-49); HEMOGLOBIN 9.9 GM/dL (11.7-16.9); LYMPH % 2.3 % (8-40); MCH 29.6 pg (25.7-33.7); MCHC 33.4 g/dl (32.0-35.9); MEAN CELL VOLUME 88.8 fl (80-96); MEAN PLT VOLUME 8.5 fl (7.5-11.1); MONO % 6.7 % (3.8-10.2); NEUT % 90.6 % (42.8-82.8); PLATELET COUNT 125 K/MM3 (134-434); RBC 3.34 M/mm3 (4.00-5.60); RDW 16.6 % (11.9-15.9); WHITE BLOOD COUNT 13.9 K/mm3 (4.0-10.0)
[2019-01-14 07:31] LABS: BLOOD UREA NITROGEN 42.9 mg/dL (7-18); CALCIUM 7.5 mg/dL (8.5-10.1); CREATININE 2.3 mg/dL (0.55-1.3); POTASSIUM 3.7 mmol/L (3.5-5.1)
[2019-01-14] MEDS: SPIRONOLACTONE 25 MG TABLET (FP) PO SCH (10:50)
[2019-01-14] MEDS: CARVEDILOL 25 MG TABLET (FP) PO SCH ×2 (10:50→22:05)
[2019-01-14 16:03] LABS: EPI CELLS 3.5 /HPF (0-5/HPF); HYALINE CASTS 4 /lpf (0-8); URINE APPEARANCE CLOUDY; URINE BACTERIA 0.5 /hpf (NEGATIVE); URINE BILIRUBIN NEGATIVE (NEGATIVE); URINE COLOR DK YELLOW; URINE GLUCOSE (UA) NEGATIVE (NEGATIVE); URINE KETONE NEGATIVE (NEGATIVE); URINE LEUK ESTERASE NEGATIVE (NEGATIVE); URINE NITRITE NEGATIVE (NEGATIVE); URINE PROTEIN 1+ (NEGATIVE); URINE UROBILINOGEN 0.2 mg/dL (0.2-1.0); URINE WBC 4 /hpf (0-5)
[2019-01-14 17:10] LABS: URINE RBC 5.5 /hpf (0-4)
[2019-01-14 17:12] LABS: YEAST MODERATE (NEGATIVE)
[2019-01-14] MEDS: ATORVASTATIN CA 10 MG TABLET (FP) PO SCH (22:05)
--- NOTE | 2019-01-14 22:37 | PN ---
Progress Note (short form) - Note Progress Note: Patient stated that he is feeling well and does not want any surgery Vital Signs Temperature 98.4 F 01/14/19 17:21 Pulse Rate 131 H 01/14/19 17:21 Respiratory Rate 20 01/14/19 17:21 Blood Pressure 110/77 01/14/19 17:21 O2 Sat by Pulse Oximetry (%) 95 01/14/19 09:00 GENERAL: The patient is awake, alert, and fully oriented, in no acute distress. HEAD: Normal with no signs of trauma. EYES: PERRL, extraocular movements intact, sclera anicteric, conjunctiva clear. ENT: Ears normal, oropharynx clear without exudates, moist mucous membranes. NECK: Trachea midline, full range of motion, supple. LUNGS: Breath sounds equal, clear to auscultation bilaterally, no wheezes, no crackles, no accessory muscle use. HEART: tachycardic rate of 131, S1, S2 without murmur, rub or gallop. ABDOMEN: Soft, nontender, nondistended, normoactive bowel sounds, no guarding, no rebound, no hepatosplenomegaly, no masses. EXTREMITIES: 2+ pulses, warm, well-perfused, no edema. diffuse adenopathy- bilateral axillary and bilateral inguinal adenopathy NEUROLOGICAL: Cranial nerves II through XII grossly intact. Normal speech, gait not observed. PSYCH: Normal mood, normal affect. SKIN: Warm, dry, normal turgor, no rashes or lesions noted Exam: right buttock induration extending medially continues to drain, no induration of the left buttock, no scrotal involvement WBC 13.9 K/mm3 (4.0-10.0) H 01/14/19 06:06 RBC 3.34 M/mm3 (4.00-5.60) L 01/14/19 06:06 Hgb 9.9 GM/dL (11.7-16.9) L 01/14/19 06:06 Hct 29.6 % (35.4-49) L 01/14/19 06:06 MCV 88.8 fl (80-96) 01/14/19 06:06 MCHC 33.4 g/dl (32.0-35.9) 01/14/19 06:06 RDW 16.6 % (11.9-15.9) H 01/14/19 06:06 Plt Count 125 K/MM3 (134-434) L 01/14/19 06:06 MPV 8.5 fl (7.5-11.1) 01/14/19 06:06 CMP Sodium 135 mmol/L (136-145) L 01/14/19 06:06 Potassium 3.7 mmol/L (3.5-5.1) 01/14/19 06:06 Chloride 104 mmol/L (98-107) 01/14/19 06:06 Carbon Dioxide 21 mmol/L (21-32) 01/14/19 06:06 Anion Gap 10 MMOL/L (8-16) 01/14/19 06:06 BUN 42.9 mg/dL (7-18) H 01/14/19 06:06 Creatinine 2.3 mg/dL (0.55-1.3) H 01/14/19 06:06 Random Glucose 76 mg/dL (74-106) 01/14/19 06:06 Calcium 7.5 mg/dL (8.5-10.1) L 01/14/19 06:06 Total Bilirubin 1.9 mg/dL (0.2-1) H 01/13/19 06:38 AST 29 U/L (15-37) 01/13/19 06:38 ALT 11 U/L (13-61) L 01/13/19 06:38 Alkaline Phosphatase 100 U/L (45-117) 01/13/19 06:38 Total Protein 6.1 g/dl (6.4-8.2) L 01/13/19 06:38 Albumin 2.3 g/dl (3.4-5.0) L 01/13/19 06:38 CARDIAC ENZYMES Creatine Kinase 164 U/L (26-308) 01/13/19 06:38 Troponin I 0.11 ng/ml (0.00-0.05) H 01/13/19 06:38 Current Medications Generic Name Dose Route Start Last Admin Trade Name Freq PRN Reason Stop Dose Admin Acetaminophen 1,000 mg 01/12/19 02:28 01/12/19 06:36 Ofirmev Injection - IVPB 1,000 mg Q6H PRN Administration PAIN OR FEVER Atorvastatin Calcium 10 mg 01/13/19 22:00 01/14/19 22:05 Lipitor - PO 10 mg HS ARISTEO Administration Carvedilol 25 mg 01/13/19 10:00 01/14/19 22:05 Coreg - PO 25 mg BID ARISTEO Administration Sodium Chloride 1,000 mls @ 75 mls/hr 01/12/19 02:30 01/14/19 22:05 Normal Saline - IV 75 mls/hr ASDIR ARISTEO Administration Piperacillin Sod/Tazobactam 50 mls @ 100 mls/hr 01/12/19 10:00 01/14/19 17:28 Sod 3.375 gm/ Dextrose IVPB 100 mls/hr Q8H-IV ARISTEO Administration Protocol Spironolactone 25 mg 01/13/19 10:00 01/14/19 10:50 Aldactone - PO 25 mg DAILY ARISTEO Administration Home Medications Medication Instructions Recorded Apixaban [Eliquis] 5 mg PO BID 01/11/19 Atorvastatin Ca [Lipitor] 10 mg PO HS 01/11/19 Carvedilol 25 mg PO BID 01/11/19 Furosemide 80 mg PO DAILY 01/11/19 Furosemide [Lasix -] 40 mg PO BID 01/11/19 Hydralazine HCl 10 mg PO TID 01/11/19 Isosorbide Mononitrate [Imdur -] 30 mg PO DAILY 01/11/19 Sodium Bicarbonate - 2 tab PO TID 01/11/19 Spironolactone 25 mg PO DAILY 01/11/19 CXR: large heart, no acute pathology CT abdomen and pelvis: Coccyx measuring 4.7x3.1x3.3cm, surronding adenopathy is suspected, bladder physiologically is distended, no bladder stones , spondylotic changes of the spine with no aggressive bone lesions seen, scoliosis convexity to the right is present. ASSESSMENT AND PLAN: Patient is a 78 year old male with PMHx significant for HTN, CKD, and AFib. He presented today from home with complaints of diarrhea for the past 4-5 days after eating old meat(beef) from the refrigerator. # Abscess of right gluteal: consulted and ID. once INR below 1.5 will take him to I&D , given vit K 5mg x2. ID on the case on IV antibiotics Zosyn as of today patient does not want the procedure. # Adenopathy: generalized enlarged LYMPH NODES # Hx of Afib rate is uncontrolled will continue his Coreg. and Eliquis is on hold due to elevated INR and patient is going for the procedure I&D and Lymph node Bx # Elevated INR on Eliquis will hold, Pt/inr in am, vit K oral 5mg x2 given , cbc in am #Diarrhea resolved # Anemia with normal MCV # Thrombocytopenia is improving 127k today # CKD (chronic kidney disease) # hx of Renal mass DVT Px: SCds , on Eliquis on hold due to having procedure and elevated INR, repeat inr in am. Visit type - Emergency Visit Emergency Visit: Yes ED Registration Date: 01/12/19 Care time: The patient presented to the Emergency Department on the above date and was hospitalized for further evaluation of their emergent condition. - New Patient This patient is new to me today: No - Critical Care Critical Care patient: No - Discharge Referral Referred to [facility] Med P.C.: No
[2019-01-15] MEDS: PIPERACILLIN/TAZOB 3.375 GM 3.375 GM in DEXTROSE 5%-WATER - 50 ML IVPB SCH ×3 (02:47→16:59)
[2019-01-15] MEDS: SPIRONOLACTONE 25 MG TABLET (FP) PO SCH (10:14)
[2019-01-15] MEDS: CARVEDILOL 25 MG TABLET (FP) PO SCH ×2 (10:14→21:50)
[2019-01-15] MEDS: SODIUM CHLORIDE 1,000 ML IV SCH (10:15)
[2019-01-15] MEDS ORDERED: PIPERACILLIN/TAZOBACTAM 3.375 GM VIAL IVPB ONE ×2 (10:17→16:48)
[2019-01-15] MEDS ORDERED: DEXTROSE 5%-WATER - 50 ML IVPB ONE ×2 (10:17→16:48)
[2019-01-15 11:38] LABS: INR 2.07 (0.83-1.09); PROTHROMBIN TIME (PATIENT) 24.6 SEC (9.7-13.0)
--- NOTE | 2019-01-15 12:10 | CON.CARD ---
Consult Consult Specialty:: Cardiology Referred by:: Dr. De Dios Reason for Consultation:: AF w/ RVR - History of Present Illness Chief Complaint: Diarrhea History of Present Illness: 78M w/ known AF followed by Len Peña on Eliquis admitted several days ago for diarrhea and chills. Work up thus far has revealed: 1. Diffuse LAD 2. Gluteal abscess for which surgery was consulted , I & D planned 3. Iliac artery aneurysm 4. CKD 5. Renal mass 6. Fevers w/ negative cultures We are called today for assistance w/ AF with RVR. He denies CP, SOB, palps, edema, syncope; denies AK or prior PCI. - History Source History Provided By: Patient, Medical Record - Past Medical History Cardio/Vascular: Yes: AFIB, HTN Renal/: Yes: Other (CKD) Heme/Onc: Yes: Anemia - Past Surgical History Past Surgical History: Yes: None - Alcohol/Substance Use Hx Alcohol Use: Yes - Smoking History Smoking history: Never smoked Have you smoked in the past 12 months: No Aproximately how many cigarettes per day: 12 If you are a former smoker, when did you quit?: 50 yrs - Social History ADL: Independent History of Recent Travel: No Home Medications - Allergies Allergies/Adverse Reactions: Allergies Allergy/AdvReac Type Severity Reaction Status Date / Time No Known Allergies Allergy Verified 01/11/19 15:34 - Home Medications Home Medications: Ambulatory Orders Apixaban [Eliquis] 5 mg PO BID 01/11/19 Atorvastatin Ca [Lipitor] 10 mg PO HS 01/11/19 Carvedilol 25 mg PO BID 01/11/19 Furosemide 80 mg PO DAILY 01/11/19 Furosemide [Lasix -] 40 mg PO BID 01/11/19 Hydralazine HCl 10 mg PO TID 01/11/19 Isosorbide Mononitrate [Imdur -] 30 mg PO DAILY 01/11/19 Sodium Bicarbonate - 2 tab PO TID 01/11/19 Spironolactone 25 mg PO DAILY 01/11/19 Family Disease History - Family Disease History Family History: Unremarkable (not pertinent to this presentation) Review of Systems - Review of Systems Constitutional: reports: No Symptoms Eyes: reports: No Symptoms HENT: reports: No Symptoms Neck: reports: No Symptoms Cardiovascular: reports: No Symptoms Respiratory: reports: No Symptoms Gastrointestinal: reports: Diarrhea Genitourinary: reports: No Symptoms Musculoskeletal: reports: No Symptoms Integumentary: reports: No Symptoms Neurological: reports: No Symptoms Endocrine: reports: No Symptoms Hematology/Lymphatic: reports: No Symptoms Psychiatric: reports: No Symptoms - Risk Factors Known Risk Factors: Yes: Hypertension Vital Signs: Vital Signs Temperature 98.6 F 01/15/19 09:49 Pulse Rate 102 H 01/15/19 09:49 Respiratory Rate 20 01/15/19 09:49 Blood Pressure 112/63 01/15/19 09:49 O2 Sat by Pulse Oximetry (%) 96 01/15/19 09:49 Constitutional: Yes: No Distress, Calm Eyes: Yes: Conjunctiva Clear Respiratory: Yes: CTA Bilaterally (no wheezing or rales) Gastrointestinal: Yes: Soft (NT, no rebound or guarding.) Cardiovascular: Yes: Pulse Irregular JVD: No Carotid Bruit: No PMI: Non-Displaced Heart Sounds: Yes: S1, S2 (irregular) Edema: No Peripheral Pulses WNL: Yes Neurological: Yes: Alert, Oriented ...Motor Strength: WNL - Other Data Labs, Other Data: CBC, BMP 01/14/19 06:06 01/14/19 06:06 INR, PTT INR 2.07 (0.83-1.09) H 01/15/19 11:00 Microbiology 01/11/19 22:29 Stool Salmonella/Shigella Culture - Final 01/11/19 22:29 Stool Escherichia coli 0157 Culture - Final NO GROWTH OF SALMONELLA OR SHIGELLA SPECIES OBTAINED NO GROWTH OF CAMPYLOBACTER SPECIES OBTAINED NO GROWTH OF YERSINIA SPECIES OBTAINED NO GROWTH OF VIBRIO SPECIES OBTAINED NO GROWTH OF E COLI 0157 OBTAINED 01/11/19 16:30 Blood - Peripheral Venous Blood Culture - Preliminary NO GROWTH OBTAINED AFTER 72 HOURS, INCUBATION TO CONTINUE FOR 2 DAYS. 01/11/19 16:00 Blood - Peripheral Venous Blood Culture - Preliminary NO GROWTH OBTAINED AFTER 72 HOURS, INCUBATION TO CONTINUE FOR 2 DAYS. Laboratory Tests 01/11/19 01/12/19 01/12/19 22:30 04:26 06:09 WBC Hgb Plt Count INR Sodium Potassium BUN 34.0 H Creatinine 2.2 H Total Bilirubin Alkaline Phosphatase LD Total Creatine Kinase Troponin I 0.16 H Albumin 2.4 L Carcinoembryonic Ag Prostate Specific Ag Urine Protein Urine Nitrite Urine Bilirubin Stool Occult Blood Positive HIV 1&2 Antibody Screen HIV P24 Antigen 01/13/19 01/13/19 01/13/19 06:38 06:38 06:38 WBC Hgb Plt Count INR Sodium Potassium BUN Creatinine Total Bilirubin 1.9 H Alkaline Phosphatase 100 LD Total 151 Creatine Kinase 164 Troponin I 0.11 H Albumin Carcinoembryonic Ag 1.8 Prostate Specific Ag 0.50 Urine Protein Urine Nitrite Urine Bilirubin Stool Occult Blood HIV 1&2 Antibody Screen Negative HIV P24 Antigen Negative 01/14/19 01/14/19 01/14/19 06:06 06:06 15:42 WBC 13.9 H Hgb 9.9 L Plt Count 125 L INR Sodium 135 L Potassium 3.7 BUN 42.9 H Creatinine 2.3 H Total Bilirubin Alkaline Phosphatase LD Total Creatine Kinase Troponin I Albumin Carcinoembryonic Ag Prostate Specific Ag Urine Protein 1+ H Urine Nitrite Negative Urine Bilirubin Negative Stool Occult Blood HIV 1&2 Antibody Screen HIV P24 Antigen 01/15/19 11:00 WBC Hgb Plt Count INR 2.07 H Sodium Potassium BUN Creatinine Total Bilirubin Alkaline Phosphatase LD Total Creatine Kinase Troponin I Albumin Carcinoembryonic Ag Prostate Specific Ag Urine Protein Urine Nitrite Urine Bilirubin Stool Occult Blood HIV 1&2 Antibody Screen HIV P24 Antigen AF 107bpm, left axis, nonspecific IVCD, VPC Echo: Report Reviewed Ejection Fraction %: LVEF < 40 % Imaging - Results Cat Scan: Report Reviewed EKG: Image Reviewed Assessment/Plan IMP: 1. Atrial fibrillation w/ RVR likely driven by volume depletion, infection, anemia 2. Severe LV dysfx: ?new?, ?etiology, ?rate related? 3. Borderline/Equivocal TnI 4. PHTN 5. Gluteal abscess 6. Diffuse lymphadenopathy 7. R. Common iliac artery aneurysm 9. CKD 10. Renal Mass REC: 1. Agree to hold Imdur and Hydralazine in setting of hypotension, volume depletion due to diarrhea. Would discontinue Aldactone as well in this setting. 2. Continue Coreg. BP has been soft (90-100mgHg systolic) but stable. Will add digoxin for adjunct rate control in this setting (low BP/low EF). 3. Cautious hydration with daily weights, attention to O2 requirements. Repeat CXR today (Diuretics on hold). 4. Continue tele 5. Will try to obtain records from Dr. Peña (last echo, prior ischemic w/u etc). 6. Eliquis on hold for planned I&D of abscess, resume post op when feasible from surgical standpoint. 7. Suspect borderline/equivocal TnI is due to demand ischemia in setting of volume depletion, infection, anemia and AF w/ RVR. It may also be chronically elevated in setting cardiomyopathy and chronic PHTN (which is likely due to left sided disease). 8. Further w/u of LAD/ renal mass as per primary team. 9. Renal following, CKD. Creatinine stable. 10. Suggest vascular consult for iliac aneurysm to help guide further imaging and management. Will follow
--- NOTE | 2019-01-15 13:21 | PN ---
Progress Note, Physician Chief Complaint: gluteal abscess History of Present Illness: 78 yo male PMH significant for HTN, CKD, and AFib on xeralto presented today from home with complaints of diarrhea for the past 4-5 days. He states that he ate home cooked steak 7-8 days ago, and started to feel nauseated and "queasy" over the next few hours. He attempted a bowel movement, but was unable to move his bowels. He endorsed feeling feverish around that time, which resolved after he took a Tylenol. He then developed anorexia the next day. 2 days after that he developed generalized weakness and 4-5 episodes of diarrhea per day since then. The stool is watery, brown, non foul smelling, with no blood or associated pain during defecation. We were called to assess. - Current Medication List Current Medications: Active Medications Acetaminophen (Ofirmev Injection -) 1,000 mg IVPB Q6H PRN PRN Reason: PAIN OR FEVER Last Admin: 01/12/19 06:36 Dose: 1,000 mg Atorvastatin Calcium (Lipitor -) 10 mg PO HS ARISTEO Last Admin: 01/14/19 22:05 Dose: 10 mg Carvedilol (Coreg -) 25 mg PO BID ARISTEO Last Admin: 01/15/19 10:14 Dose: 25 mg Digoxin (Lanoxin -) 0.25 mg PO DAILY ARISTEO Stop: 01/17/19 23:59 Sodium Chloride (Normal Saline -) 1,000 mls @ 75 mls/hr IV ASDIR ARISTEO Last Admin: 01/15/19 10:15 Dose: 75 mls/hr Piperacillin Sod/Tazobactam (Sod 3.375 gm/ Dextrose) 50 mls @ 100 mls/hr IVPB Q8H-IV ARISTEO; Protocol Last Admin: 01/15/19 10:19 Dose: 100 mls/hr - Objective Vital Signs: Vital Signs Temperature 98.6 F 01/15/19 09:49 Pulse Rate 102 H 01/15/19 09:49 Respiratory Rate 20 01/15/19 09:49 Blood Pressure 112/63 01/15/19 09:49 O2 Sat by Pulse Oximetry (%) 96 01/15/19 09:49 Vital Signs Period Temp Pulse Resp BP Sys/Finney Pulse Ox Last 24 Hr 98 F-98.6 F 102-131 20-20 91-112/52-77 95-96 Intake & Output 01/14/19 01/15/19 01/15/19 23:59 07:59 15:59 Intake Total 100 900 Balance 100 900 Intake: IV 850 Normal Saline - 1,000 ml 850 @ 75 mls/hr IV ASDIR [facility] Rx#:[id number] IVPB 50 Oral 100 Other: Voiding Method Toilet Toilet Constitutional: Yes: Well Nourished, No Distress, Calm Eyes: Yes: Conjunctiva Clear, EOM Intact HENT: Yes: Atraumatic, Normocephalic Neck: Yes: Supple, Trachea Midline Cardiovascular: Yes: Regular Rate and Rhythm, S1, S2 Respiratory: Yes: Regular, CTA Bilaterally Gastrointestinal: Yes: Normal Bowel Sounds, Soft ...Rectal Exam: Yes: Erythema, Induration (right glueal fold), Inflammation Genitourinary: No: CVA Tenderness - Left, CVA Tenderness - Right Breast(s): No: Mass, Skin Changes Musculoskeletal: No: Muscle Pain, Muscle Weakness Extremities: No: Cool, Cyanosis Edema: No Peripheral Pulses WNL: Yes Peripheral Pulses: Left Radial: 2+, Right Radial: 2+, Left Doralis Pedis: 2+, Right Dorsalis Pedis: 2+, Left Femoral: 2+, Right Femoral: 2+ Wound/Incision: Yes: Reddened (right gluteal fold) Neurological: Yes: Alert, Oriented Psychiatric: Yes: Alert, Oriented Labs: INR, PTT INR 2.07 (0.83-1.09) H 01/15/19 11:00 Problem List - Problems (1) Abscess, gluteal, right Assessment/Plan: 78yo male with MMP including a right gluteal abscess, supratherapeutic INR >3--> 2.07 for best chance at surgical hemostasis NPO after midnight correct INR (vit K and FFP), trend labs I&D of right gluteal abscess in OR Discussed with patient risks, benefits and alternatives to aforementioned procedure, including but not limited to bleeding, infection, injury to adjacent structures, leak or injury, intraabdominal abscess, incisional hernia, need for further procedures, ; alternatives include antibiotics, delayed or no surgery - risks of this include failure of nonoperative therapy, perforation, sepsis, recurrence, . Patient desires to proceed with operation - will take to OR for above. Informed consent signed for same. Thank you for the opportunity to participate in the care of this patient. Code(s): L02.31 - CUTANEOUS ABSCESS OF BUTTOCK (2) Adenopathy Code(s): R59.1 - GENERALIZED ENLARGED LYMPH NODES (3) Abdominal pain Code(s): R10.9 - UNSPECIFIED ABDOMINAL PAIN Qualifiers: Abdominal location: epigastric Qualified Code(s): R10.13 - Epigastric pain (4) Diarrhea Code(s): R19.7 - DIARRHEA, UNSPECIFIED
[2019-01-15 13:29] LABS: HEMATOCRIT 28.1 % (35.4-49); HEMOGLOBIN 9.5 GM/dL (11.7-16.9); MCH 29.5 pg (25.7-33.7); MCHC 33.7 g/dl (32.0-35.9); MEAN CELL VOLUME 87.7 fl (80-96); MEAN PLT VOLUME 8.6 fl (7.5-11.1); PLATELET COUNT 146 K/MM3 (134-434); RBC 3.21 M/mm3 (4.00-5.60); RDW 16.4 % (11.9-15.9); WHITE BLOOD COUNT 14.1 K/mm3 (4.0-10.0)
--- NOTE | 2019-01-15 13:30 | PN ---
Physical Exam: SUBJECTIVE: Patient seen and examined. Offers no complaints. OBJECTIVE: Vital Signs Period Temp Pulse Resp BP Sys/Finney Pulse Ox Last 24 Hr 98 F-98.6 F 102-131 20-20 91-112/52-77 95-96 GENERAL: The patient is awake, alert, and fully oriented, in no acute distress. HEAD: Normal with no signs of trauma. LUNGS: Breath sounds equal, clear to auscultation bilaterally, no wheezes, no crackles, no accessory muscle use. HEART: irregular rhythm ABDOMEN: Soft, nontender, nondistended, normoactive bowel sounds, no guarding, no rebound, no hepatosplenomegaly, no masses. EXTREMITIES: 2+ pulses, warm, well-perfused, no edema. SKIN: didnt let me check abscess Laboratory Results - last 24 hr 01/14/19 01/15/19 15:42 11:00 PT with INR 24.60 H INR 2.07 H Urine Color Dk yellow Urine Appearance Cloudy Urine pH 5.0 Ur Specific [place] 1.024 Urine Protein 1+ H Urine Glucose (UA) Negative Urine Ketones Negative Urine Blood Negative Urine Nitrite Negative Urine Bilirubin Negative Urine Urobilinogen 0.2 Ur Leukocyte Esterase Negative Urine WBC (Auto) 4 Urine RBC (Auto) 5.5 Urine Casts (Auto) 4 U Epithel Cells (Auto) 3.5 Urine Bacteria (Auto) 0.5 Urine Yeast (Auto) Moderate Active Medications Generic Name Dose Route Start Last Admin Trade Name Freq PRN Reason Stop Dose Admin Acetaminophen 1,000 mg 01/12/19 02:28 01/12/19 06:36 Ofirmev Injection - IVPB 1,000 mg Q6H PRN Administration PAIN OR FEVER Atorvastatin Calcium 10 mg 01/13/19 22:00 01/14/19 22:05 Lipitor - PO 10 mg HS ARISTEO Administration Carvedilol 25 mg 01/13/19 10:00 01/15/19 10:14 Coreg - PO 25 mg BID ARISTEO Administration Digoxin 0.25 mg 01/15/19 12:30 Lanoxin - PO 01/17/19 23:59 DAILY ARISTEO Sodium Chloride 1,000 mls @ 75 mls/hr 01/12/19 02:30 01/15/19 10:15 Normal Saline - IV 75 mls/hr ASDIR ARISTEO Administration Piperacillin Sod/Tazobactam 50 mls @ 100 mls/hr 01/12/19 10:00 01/15/19 10:19 Sod 3.375 gm/ Dextrose IVPB 100 mls/hr Q8H-IV ARISTEO Administration Protocol ASSESSMENT/PLAN: Patient is a 78 year old male with PMHx significant for HTN, CKD, and AFib. He presented today from home with complaints of diarrhea for the past 4-5 days after eating old meat(beef) from the refrigerator. #R Gluteal abscess - consulted -plan for I&D tomorrow -Goal INR <1.5 once INR below 1.5 -IV abx: Zosyn #A-fib W RVR -cont. Coreg -Eliquis held for procedure -Cardio consult for Borderline BP and uncontrolled HR -Digxoxin started #Elevated INR -eliquis held -s/p Vit x 2 yesterday -Pt/INR in the am #Diarrhea -resoloved #CKD #hx of Renal mass #DVT -scds Visit type - Emergency Visit Emergency Visit: Yes ED Registration Date: 01/12/19 Care time: The patient presented to the Emergency Department on the above date and was hospitalized for further evaluation of their emergent condition. - New Patient This patient is new to me today: Yes Date on this admission: 01/15/19 - Critical Care Critical Care patient: No ATTENDING PHYSICIAN STATEMENT I saw and evaluated the patient. I reviewed the resident's note and discussed the case with the resident. I agree with the resident's findings and plan as documented. SUBJECTIVE: OBJECTIVE: ASSESSMENT AND PLAN:
[2019-01-15 13:41] LABS: ALBUMIN 1.9 g/dl (3.4-5.0); BILIRUBIN,TOTAL 1.4 mg/dL (0.2-1); BLOOD UREA NITROGEN 44.8 mg/dL (7-18); CALCIUM 7.6 mg/dL (8.5-10.1); CREATININE 2.3 mg/dL (0.55-1.3); POTASSIUM 3.7 mmol/L (3.5-5.1); TOT PROT 5.6 g/dl (6.4-8.2)
[2019-01-15] MEDS: DIGOXIN 0.25 MG TABLET (FP) PO SCH (16:59)
[2019-01-15] MEDS ORDERED: PHYTONADIONE 5 MG TABLET PO ONE (19:15)
--- NOTE | 2019-01-15 19:17 | PN ---
Teaching Attending Note Name of Resident: Monica De Dios ATTENDING PHYSICIAN STATEMENT I saw and evaluated the patient. I reviewed the resident's note and discussed the case with the resident. I agree with the resident's findings and plan as documented. SUBJECTIVE: Patient has no new complains. OBJECTIVE: Vital Signs Temperature 98.6 F 01/15/19 09:49 Pulse Rate 109 H 01/15/19 16:59 Respiratory Rate 20 01/15/19 09:49 Blood Pressure 112/63 01/15/19 09:49 O2 Sat by Pulse Oximetry (%) 96 01/15/19 09:49 GENERAL: The patient is awake, alert, and fully oriented, in no acute distress. HEAD: Normal with no signs of trauma. EYES: PERRL, extraocular movements intact, sclera anicteric, conjunctiva clear. ENT: Ears normal, oropharynx clear without exudates, moist mucous membranes. NECK: Trachea midline, full range of motion, supple. LUNGS: Breath sounds equal, clear to auscultation bilaterally, no wheezes, no crackles, no accessory muscle use. HEART: tachycardic rate of 131, S1, S2 without murmur, rub or gallop. ABDOMEN: Soft, nontender, nondistended, normoactive bowel sounds, no guarding, no rebound, no hepatosplenomegaly, no masses. EXTREMITIES: 2+ pulses, warm, well-perfused, no edema. diffuse adenopathy- bilateral axillary and bilateral inguinal adenopathy NEUROLOGICAL: Cranial nerves II through XII grossly intact. Normal speech, gait not observed. PSYCH: Normal mood, normal affect. SKIN: Warm, dry, normal turgor, no rashes or lesions noted Exam: right buttock induration extending medially continues to drain, no induration of the left buttock, no scrotal involvement CBCD WBC 14.1 K/mm3 (4.0-10.0) H 01/15/19 12:40 RBC 3.21 M/mm3 (4.00-5.60) L 01/15/19 12:40 Hgb 9.5 GM/dL (11.7-16.9) L 01/15/19 12:40 Hct 28.1 % (35.4-49) L 01/15/19 12:40 MCV 87.7 fl (80-96) 01/15/19 12:40 MCHC 33.7 g/dl (32.0-35.9) 01/15/19 12:40 RDW 16.4 % (11.9-15.9) H 01/15/19 12:40 Plt Count 146 K/MM3 (134-434) 01/15/19 12:40 MPV 8.6 fl (7.5-11.1) 01/15/19 12:40 CMP Sodium 136 mmol/L (136-145) 01/15/19 12:40 Potassium 3.7 mmol/L (3.5-5.1) 01/15/19 12:40 Chloride 105 mmol/L (98-107) 01/15/19 12:40 Carbon Dioxide 20 mmol/L (21-32) L 01/15/19 12:40 Anion Gap 10 MMOL/L (8-16) 01/15/19 12:40 BUN 44.8 mg/dL (7-18) H 01/15/19 12:40 Creatinine 2.3 mg/dL (0.55-1.3) H 01/15/19 12:40 Random Glucose 104 mg/dL (74-106) 01/15/19 12:40 Calcium 7.6 mg/dL (8.5-10.1) L 01/15/19 12:40 Total Bilirubin 1.4 mg/dL (0.2-1) H 01/15/19 12:40 AST 20 U/L (15-37) 01/15/19 12:40 ALT 11 U/L (13-61) L 01/15/19 12:40 Alkaline Phosphatase 92 U/L (45-117) 01/15/19 12:40 Total Protein 5.6 g/dl (6.4-8.2) L 01/15/19 12:40 Albumin 1.9 g/dl (3.4-5.0) L 01/15/19 12:40 CARDIAC ENZYMES Creatine Kinase 164 U/L (26-308) 01/13/19 06:38 Troponin I 0.11 ng/ml (0.00-0.05) H 01/13/19 06:38 Current Medications Generic Name Dose Route Start Last Admin Trade Name Freq PRN Reason Stop Dose Admin Acetaminophen 1,000 mg 01/12/19 02:28 01/12/19 06:36 Ofirmev Injection - IVPB 1,000 mg Q6H PRN Administration PAIN OR FEVER Atorvastatin Calcium 10 mg 01/13/19 22:00 01/14/19 22:05 Lipitor - PO 10 mg HS ARISTEO Administration Carvedilol 25 mg 01/13/19 10:00 01/15/19 10:14 Coreg - PO 25 mg BID ARISTEO Administration Digoxin 0.25 mg 01/15/19 12:30 01/15/19 16:59 Lanoxin - PO 01/17/19 23:59 0.25 mg DAILY ARISTEO Administration Sodium Chloride 1,000 mls @ 75 mls/hr 01/12/19 02:30 01/15/19 10:15 Normal Saline - IV 75 mls/hr ASDIR ARISTEO Administration Piperacillin Sod/Tazobactam 50 mls @ 100 mls/hr 01/12/19 10:00 01/15/19 16:59 Sod 3.375 gm/ Dextrose IVPB 100 mls/hr Q8H-IV ARISTEO Administration Protocol Home Medications Medication Instructions Recorded Apixaban [Eliquis] 5 mg PO BID 01/11/19 Atorvastatin Ca [Lipitor] 10 mg PO HS 01/11/19 Furosemide [Lasix -] 40 mg PO BID 01/11/19 Isosorbide Mononitrate [Imdur -] 30 mg PO DAILY 01/11/19 RX: Carvedilol 25 mg PO BID 01/11/19 RX: Furosemide 80 mg PO DAILY 01/11/19 RX: Hydralazine HCl 10 mg PO TID 01/11/19 RX: Sodium Bicarbonate - 2 tab PO TID 01/11/19 RX: Spironolactone 25 mg PO DAILY 01/11/19 CXR: large heart, no acute pathology CT abdomen and pelvis: Coccyx measuring 4.7x3.1x3.3cm, surronding adenopathy is suspected, bladder physiologically is distended, no bladder stones , spondylotic changes of the spine with no aggressive bone lesions seen, scoliosis convexity to the right is present. ASSESSMENT AND PLAN: Patient is a 78 year old male with PMHx significant for HTN, CKD, and AFib. He presented today from home with complaints of diarrhea for the past 4-5 days after eating old meat(beef) from the refrigerator. # Afib with RVR , added digoxin as per cardio , l continue his Coreg. and Eliquis is on hold due to elevated INR and patient is going for the procedure I& D and Lymph node Bx. INR is 2.08 , will monitor # Abscess of right gluteal: consulted and ID. once INR below 1.5 will take him to I&D , given vit K 5mg x2. ID on the case on IV antibiotics Zosyn , patient wants to have the procedure. discussed with , npo after midnight # Adenopathy: generalized enlarged LYMPH NODES # Elevated INR on Eliquis will hold, Pt/inr in am, vit K oral 5mg x2 given , cbc in am #Diarrhea resolved # Anemia with normal MCV # Thrombocytopenia is improving 127k--146K today # CKD (chronic kidney disease) # hx of Renal mass DVT Px: SCds , on Eliquis on hold due to having procedure and elevated INR, repeat inr in am.
[2019-01-15] MEDS: ACETAMINOPHEN 1000 MG/100 ML VIAL (NON FORMULARY) IVPB PRN (21:49)
[2019-01-15] MEDS: ATORVASTATIN CA 10 MG TABLET (FP) PO SCH (21:50)
[2019-01-16] MEDS ORDERED: DEXTROSE 5%-WATER - 50 ML IVPB ONE ×3 (02:11→17:44)
[2019-01-16] MEDS ORDERED: PIPERACILLIN/TAZOBACTAM 3.375 GM VIAL IVPB ONE ×3 (02:11→17:43)
[2019-01-16] MEDS: PIPERACILLIN/TAZOB 3.375 GM 3.375 GM in DEXTROSE 5%-WATER - 50 ML IVPB SCH ×3 (02:25→17:44)
[2019-01-16] MEDS: SODIUM CHLORIDE 1,000 ML IV SCH ×2 (02:37→14:28)
[2019-01-16 07:03] LABS: INR 1.76 (0.83-1.09); PROTHROMBIN TIME (PATIENT) 20.9 SEC (9.7-13.0)
[2019-01-16 07:15] LABS: CALCIUM 7.4 mg/dL (8.5-10.1); CREATININE 2.4 mg/dL (0.55-1.3); POTASSIUM 3.7 mmol/L (3.5-5.1)
[2019-01-16] MEDS ORDERED: NAPH,MB-DB/K PH,MBDB POWDER PACKET PO ONE (09:00)
[2019-01-16] MEDS: CARVEDILOL 25 MG TABLET (FP) PO SCH ×2 (09:13→23:17)
[2019-01-16] MEDS: DIGOXIN 0.25 MG TABLET (FP) PO SCH (09:13)
--- NOTE | 2019-01-16 09:21 | PN ---
Progress Note, Physician - Current Medication List Current Medications: Active Medications Acetaminophen (Ofirmev Injection -) 1,000 mg IVPB Q6H PRN PRN Reason: PAIN OR FEVER Last Admin: 01/15/19 21:49 Dose: 1,000 mg Atorvastatin Calcium (Lipitor -) 10 mg PO HS [facility] Last Admin: 01/15/19 21:50 Dose: 10 mg Carvedilol (Coreg -) 25 mg PO BID ARISTEO Last Admin: 01/16/19 09:13 Dose: 25 mg Digoxin (Lanoxin -) 0.25 mg PO DAILY [facility] Stop: 01/17/19 23:59 Last Admin: 01/16/19 09:13 Dose: 0.25 mg Sodium Chloride (Normal Saline -) 1,000 mls @ 75 mls/hr IV ASDIR ARISTEO Last Admin: 01/16/19 02:37 Dose: 75 mls/hr Piperacillin Sod/Tazobactam (Sod 3.375 gm/ Dextrose) 50 mls @ 100 mls/hr IVPB Q8H-IV ARISTEO; Protocol Last Admin: 01/16/19 09:14 Dose: 100 mls/hr - Objective Vital Signs: Vital Signs Temperature 98 F 01/16/19 04:51 Pulse Rate 83 01/16/19 09:13 Respiratory Rate 18 01/16/19 08:11 Blood Pressure 90/56 L 01/16/19 04:51 O2 Sat by Pulse Oximetry (%) 96 01/16/19 08:11 Labs: CBC, BMP 01/15/19 12:40 01/16/19 05:45 INR, PTT INR 1.76 (0.83-1.09) H 01/16/19 05:45 Assessment/Plan Echo 01/19: severe conc LVH; severely reduced EF 25-30%, global. mild RVE/mild decr RVSF. severe L/KARISSA. trace MR, mild AI, mod TR. RVSP 40-50. severely dilated IVC per d/w dr rousseau: echo 01/2018: EF 40-45%, mod conc LVH MPI 2014: no ischemia tele: AF hr 80s-100s; PVCs; WCT ? afib with aberrancy vs VT (7 beats) IMP: -Atrial fibrillation w/ RVR likely driven by volume depletion, infection, anemia -Severe LV dysfx: ?new?, ?etiology, ?rate related? 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 distal aorta 2.8 cm, right common iliac 2.2 cm, L common iliac 1.9 -JAMIA on CKD, baseline creatinine 2.[address] rousseau -anemia REC: -holding spirono, Imdur and Hydralazine in setting of hypotension, volume depletion due to diarrhea. -continue carvedilol 25 bid as bp's allow (mostly 90s systolic and above)-- would tolerate systolic BP > 90 here -continue digoxin for adjunct rate control in this setting (low BP/low EF). -if HR not controlled, would switch carvedilol to metoprolol -receiving cautious hydration, renal fxn essentially unchanged throughout. rpt CXR. watch closely for signs of HF -Continue tele -Eliquis on hold for planned I&D of abscess, resume post op when feasible from surgical standpoint. -Further w/u of LAD/renal mass/paracoccygeal mass as per primary team. -hgb stable, monitor trend -renal fxn slightly above baseline--per renal team -followup vascular surgery eval re: ? AAA, bilateral STANTON aneurysms largest 2.2 cm -replete K/Mag > 4/2 -f/u dig level tomorrow -consider cardiac amyloid w/u as outpatient given severe LVH (d/w'd dr rousseau)
[2019-01-16] MEDS ORDERED: LIDOCAINE HCL 1%, 10 MG/ML (20ML VIAL) ONE (10:36)
[2019-01-16] MEDS ORDERED: BACITRACIN 15 GM TUBE TOPICAL OINTMENT ONE (10:55)
[2019-01-16] MEDS ORDERED: MIDAZOLAM HCL 2 MG/2 ML SINGLE DOSE VIAL ONE ×2 (11:29→11:34)
[2019-01-16] MEDS ORDERED: PROPOFOL 20 ML ONE (11:37)
[2019-01-16] MEDS ORDERED: LIDOCAINE HCL 1%, 10 MG/ML (20ML VIAL) ID ONE ×2 (11:38)
[2019-01-16] MEDS ORDERED: POTASSIUM CHLORIDE ORAL LIQUID 20 MEQ/15 ML PO ONE ×2 (12:06→12:35)
--- NOTE | 2019-01-16 12:10 | OP ---
Operative Note - Note: Operative Date: 01/16/19 Pre-Operative Diagnosis: right gluteal abscess Operation: incison and drainge of right gluteal abscess Findings: right gluteal abscess 50ml elsa pus, 2cm cruciate incison Post-Operative Diagnosis: Same as Pre-op Surgeon: Davie Le Anesthesiologist/SALOON KEEPER: Josue Engle Anesthesia: General, Local (lidocaine 1%) Specimens Removed: wound culture Estimated Blood Loss (mls): 20 Instrument used (Debridements only): scalpel and scissors Fluid Volume Replaced (mls): 300 Operative Report Dictated: Yes
[2019-01-16] MEDS ORDERED: ACETAMINOPHEN 1000 MG/100 ML VIAL (NON FORMULARY) IVPB PRN (12:35)
--- NOTE | 2019-01-16 13:30 | PN ---
Progress Note, Physician History of Present Illness: Pt seen and examined at bedside. He is awake and alert. He just had an I and D. - Current Medication List Current Medications: Active Medications Acetaminophen (Ofirmev Injection -) 1,000 mg IVPB Q6H PRN PRN Reason: PAIN OR FEVER Atorvastatin Calcium (Lipitor -) 10 mg PO HS ARISTEO Carvedilol (Coreg -) 25 mg PO BID ARISTEO Digoxin (Lanoxin -) 0.25 mg PO DAILY ARISTEO Stop: 01/17/19 23:59 Sodium Chloride (Normal Saline -) 1,000 mls @ 75 mls/hr IV ASDIR ARISTEO Piperacillin Sod/Tazobactam (Sod 3.375 gm/ Dextrose) 50 mls @ 100 mls/hr IVPB Q8H-IV ARISTEO; Protocol - Objective Vital Signs: Vital Signs Temperature 97.8 F 01/16/19 13:00 Pulse Rate 83 01/16/19 13:00 Respiratory Rate 14 01/16/19 13:00 Blood Pressure 97/66 01/16/19 13:00 O2 Sat by Pulse Oximetry (%) 100 01/16/19 13:00 Constitutional: Yes: Calm Eyes: Yes: Conjunctiva Clear HENT: Yes: Atraumatic Neck: Yes: Supple Cardiovascular: Yes: S1, S2 Respiratory: Yes: CTA Bilaterally Gastrointestinal: Yes: Soft Genitourinary: Yes: WNL Musculoskeletal: Yes: WNL Edema: Yes Edema: LLE: 1+, RLE: 1+ Neurological: Yes: Oriented Psychiatric: Yes: Oriented Labs: CBC, BMP 01/15/19 12:40 01/16/19 05:45 INR, PTT INR 1.76 (0.83-1.09) H 01/16/19 05:45 Assessment/Plan Current Medications Generic Name Dose Route Start Last Admin Trade Name Freq PRN Reason Stop Dose Admin Acetaminophen 1,000 mg 01/16/19 12:35 Ofirmev Injection - IVPB Q6H PRN PAIN OR FEVER Atorvastatin Calcium 10 mg 01/16/19 22:00 Lipitor - PO HS ARISTEO Carvedilol 25 mg 01/16/19 22:00 Coreg - PO BID ARISTEO Digoxin 0.25 mg 01/17/19 10:00 Lanoxin - PO 01/17/19 23:59 DAILY ARISTEO Sodium Chloride 1,000 mls @ 75 mls/hr 01/16/19 12:35 Normal Saline - IV ASDIR ARISTEO Piperacillin Sod/Tazobactam 50 mls @ 100 mls/hr 01/16/19 18:00 Sod 3.375 gm/ Dextrose IVPB Q8H-IV ARISTEO Protocol Impression 1. CKD 2. CHF 3. a-fib 4. hx renal mass 5. dawna-rectal abscess 6. htn Plan - d/c fluids - repeat labs in am - will likely restart diuretics tomorrow - pt tolerating diet - abx per primary team
--- NOTE | 2019-01-16 14:22 | PN ---
Progress Note (short form) - Note Progress Note: s/p drainage of gluteal abscess today ate lunch, feels well Vital Signs Period Temp Pulse Resp BP Sys/Finney Pulse Ox Last 24 Hr 97.3 F-98.9 F 68-110 14-21 89-104/45-72 93-100 cor-rrr lungs clear abd soft,nt ext no edema CBC, BMP 01/15/19 12:40 01/16/19 05:45 Microbiology 01/11/19 16:00 Blood - Peripheral Venous Blood Culture - Preliminary NO GROWTH OBTAINED AFTER 96 HOURS, INCUBATION TO CONTINUE FOR 1 DAYS. 01/11/19 16:30 Blood - Peripheral Venous Blood Culture - Preliminary NO GROWTH OBTAINED AFTER 96 HOURS, INCUBATION TO CONTINUE FOR 1 DAYS. 01/11/19 22:29 Stool Salmonella/Shigella Culture - Final NO GROWTH OF SALMONELLA OR SHIGELLA SPECIES OBTAINED 01/11/19 22:29 Stool Campylobacter Culture - Final NO GROWTH OF CAMPYLOBACTER SPECIES OBTAINED 01/11/19 22:29 Stool Yersinia Culture - Final NO GROWTH OF YERSINIA SPECIES OBTAINED 01/11/19 22:29 Stool Vibrio Culture - Final NO GROWTH OF VIBRIO SPECIES OBTAINED 01/11/19 22:29 Stool Escherichia coli 0157 Culture - Final NO GROWTH OF E COLI 0157 OBTAINED 01/12/19 04:00 Urine - Urine Clean Catch Urine Culture - Final NO GROWTH OBTAINED 01/11/19 22:30 Stool Cryptosporidium Antigen - Final 01/11/19 22:30 Stool Giardia Antigen (ELISEO) - Final a/p s/p drainage of gluteal abscess - f/u cultures r/o malignancy with diffuse adenopathy ckd afib on eliquis abdominal aneurysm renal mass hiv negative ldh normal continue zosyn f/u operative cultures consider outpt LN biopsy if patient is agreeable Problem List - Problems (1) Abscess, gluteal, right Code(s): L02.31 - CUTANEOUS ABSCESS OF BUTTOCK (2) Adenopathy Code(s): R59.1 - GENERALIZED ENLARGED LYMPH NODES (3) Diarrhea Code(s): R19.7 - DIARRHEA, UNSPECIFIED (4) Anemia Code(s): D64.9 - ANEMIA, UNSPECIFIED (5) Thrombocytopenia Code(s): D69.6 - THROMBOCYTOPENIA, UNSPECIFIED (6) CKD (chronic kidney disease) Code(s): N18.9 - CHRONIC KIDNEY DISEASE, UNSPECIFIED (7) Renal mass Code(s): N28.89 - OTHER SPECIFIED DISORDERS OF KIDNEY AND URETER
--- NOTE | 2019-01-16 14:46 | PN ---
Physical Exam: SUBJECTIVE: Patient seen and examined. Pt was lying in bed comfortably. pt denied any diarrheal episodes overnight, no pain or fever OBJECTIVE: Vital Signs Period Temp Pulse Resp BP Sys/Finney Pulse Ox Last 24 Hr 97.3 F-98.9 F 68-110 14-21 89-104/45-72 93-100 GENERAL: The patient is awake, alert, and fully oriented, in no acute distress. HEAD: Normal with no signs of trauma. LUNGS: Breath sounds equal, clear to auscultation bilaterally, no wheezes, no crackles, no accessory muscle use. HEART: Regular rate and rhythm, S1, S2 without murmur, rub or gallop. ABDOMEN: Soft, nontender, nondistended, normoactive bowel sounds, no guarding, no rebound, no hepatosplenomegaly, no masses. EXTREMITIES: 2+ pulses, warm, well-perfused, no edema. SKIN: Warm, dry, normal turgor, draining perianal abscess Laboratory Results - last 24 hr 01/16/19 01/16/19 01/16/19 05:45 05:45 12:53 PT with INR 20.90 H INR 1.76 H Sodium 135 L Potassium 3.7 Chloride 104 Carbon Dioxide 19 L Anion Gap 11 BUN 49.0 H Creatinine 2.4 H Est GFR (CKD-EPI)AfAm 28.66 Est GFR (CKD-EPI)NonAf 24.73 Random Glucose 94 Calcium 7.4 L Magnesium 2.1 Active Medications Generic Name Dose Route Start Last Admin Trade Name Freq PRN Reason Stop Dose Admin Acetaminophen 1,000 mg 01/16/19 12:35 Ofirmev Injection - IVPB Q6H PRN PAIN OR FEVER Atorvastatin Calcium 10 mg 01/16/19 22:00 Lipitor - PO HS ARISTEO Carvedilol 25 mg 01/16/19 22:00 Coreg - PO BID ARISTEO Digoxin 0.25 mg 01/17/19 10:00 Lanoxin - PO 01/17/19 23:59 DAILY ARISTEO Sodium Chloride 1,000 mls @ 75 mls/hr 01/16/19 12:35 01/16/19 14:28 Normal Saline - IV 75 mls/hr ASDIR ARISTEO Administration Piperacillin Sod/Tazobactam 50 mls @ 100 mls/hr 01/16/19 18:00 Sod 3.375 gm/ Dextrose IVPB Q8H-IV ARISTEO Protocol ASSESSMENT/PLAN: 78 y/o M w/ PMHx HTN, CKD, and AFib on Eliquis with diarrhea. Sepsis Perirectal abcess Pt s/p I&D 01/16/19 : 50ml of elsa pus removed with wound cultures sent All cultures negative Per ID cont IV zosyn until operative cultures results. 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 Hu, no acute intervention recommended CKD As per nephro, repeat labs in the morning, likely able to restart diuretics tomorrow AFib with RVR d/c Eliquis 5mg BD, (INR 3.8, high GFR) today INR 1.76 HTN Pt restarted on coreg. digoxin 0.25mg PO to start 01/17/19 Monitor BP lipitor 10mg PO restarted DVT PPX SCDs Visit type - Emergency Visit Emergency Visit: Yes ED Registration Date: 01/12/19 Care time: The patient presented to the Emergency Department on the above date and was hospitalized for further evaluation of their emergent condition. - New Patient This patient is new to me today: No - Critical Care Critical Care patient: No - Discharge Referral Referred to [facility] Med P.C[facility] No ATTENDING PHYSICIAN STATEMENT I saw and evaluated the patient. I reviewed the resident's note and discussed the case with the resident. I agree with the resident's findings and plan as documented. SUBJECTIVE: OBJECTIVE: ASSESSMENT AND PLAN:
--- NOTE | 2019-01-16 15:31 | PN ---
Progress Note (short form) - Note Progress Note: s: no chest pain, palps, dizziness, dyspnea. s/p I+D of abscess today Current Medications Acetaminophen (Ofirmev Injection -) 1,000 mg IVPB Q6H PRN PRN Reason: PAIN OR FEVER Atorvastatin Calcium (Lipitor -) 10 mg PO HS ARISTEO Carvedilol (Coreg -) 25 mg PO BID ARISTEO Digoxin (Lanoxin -) 0.25 mg PO DAILY ARISTEO Stop: 01/17/19 23:59 Sodium Chloride (Normal Saline -) 1,000 mls @ 75 mls/hr IV ASDIR ARISTEO Last Admin: 01/16/19 14:28 Dose: 75 mls/hr Piperacillin Sod/Tazobactam (Sod 3.375 gm/ Dextrose) 50 mls @ 100 mls/hr IVPB Q8H-IV ARISTEO; Protocol Vital Signs Period Temp Pulse Resp BP Sys/Finney Pulse Ox Last 24 Hr 97.3 F-98.9 F 68-110 14-21 89-104/45-72 93-100 NAD ctab, no rales nl s1, s2, rrr soft, nt, nd +bs no edema aox3 not agitated no jaundice, diaphoresis Assessment/Plan Echo 01/19: severe conc LVH; severely reduced EF 25-30%, global. mild RVE/mild decr RVSF. severe L/KARISSA. trace MR, mild AI, mod TR. RVSP 40-50. severely dilated IVC per d/w dr rousseau: echo 01/2018: EF 40-45%, mod conc LVH MPI 2014: no ischemia tele: AF hr 80s-100s; PVCs; WCT ? afib with aberrancy vs VT (7 beats), brief episodes of RVR 120s IMP: -Atrial fibrillation w/ RVR likely driven by volume depletion, infection, anemia -Severe LV dysfx: ?new?, ?etiology, ?rate related? 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 distal aorta 2.8 cm, right common iliac 2.2 cm, L common iliac 1.9 -JAMIA on CKD, baseline creatinine 2.[address] rousseau -anemia REC: -holding spirono, Imdur and Hydralazine in setting of hypotension, volume depletion due to diarrhea. -continue carvedilol 25 bid as bp's allow (mostly 90s systolic and above)-- would tolerate systolic BP > 90 here -continue digoxin for adjunct rate control in this setting (low BP/low EF). -if HR not well controlled, would switch carvedilol to metoprolol -receiving cautious hydration, renal fxn essentially unchanged throughout, repeat CXR today stable -Continue tele -Eliquis on hold for I&D of abscess, resume post op when feasible from surgical standpoint. -Further w/u of LAD/renal mass/paracoccygeal mass as per primary team. -hgb stable, monitor trend -renal fxn slightly above baseline--per renal team -followup vascular surgery eval re: ? AAA, bilateral STANTON aneurysms largest 2.2 cm -replete K/Mag > 4/2 -f/u dig level tomorrow -consider cardiac amyloid w/u as outpatient given severe LVH (per Dr. Tovar, d/w 'd dr rousseau)
--- NOTE | 2019-01-16 16:56 | OP ---
DATE OF OPERATION: 01/16/2019 PREOPERATIVE DIAGNOSIS: Right gluteal abscess. POSTOPERATIVE DIAGNOSIS: Right gluteal abscess. PROCEDURE: Incision and drainage, right gluteal abscess. ATTENDING SURGEON: Davie Le MD EQUIPMENT TECHNICIAN: No one. ANESTHESIA: Josue Engle MD ANESTHESIA TYPE: MAC and local. Local consisted of 1% lidocaine 10 mL given in an area block fashion. ESTIMATED BLOOD LOSS: 20 mL. IV FLUID ADMINISTERED: 300 mL. INSTRUMENTS USED FOR INCISION AND DRAINAGE: Scalpel and scissors. SPECIMEN: Culture from the wound, sent as body fluid culture. BRIEF FINDINGS: The patient had a right gluteal abscess, 50 mL of elsa pus. A 2-cm cruciate incision was made. INDICATION: The patient is a 78-year-old male presenting with history of a right gluteal abscess and multiple lymphadenopathy. He was counseled regarding risks, benefits, and alternatives to incision and drainage of the right gluteal abscess. He signed informed consent and was taken for the procedure. PROCEDURE: The patient was brought to the operating room, placed in supine position on the operating table. The lower extremities had SCDs with compression. He was induced with sedation, provided with supplemental oxygen. The patient was stable. We began with a formal timeout, identifying the operative site and procedure, the claudette was identified, with all parties in agreement. We began with sterile prep and draping the area in lithotomy. A cruciate incision was made with a 15 blade scalpel. It was deepened and widened through the subcutaneous tissue. Care was taken then to send a wound culture immediately, as there was a gush of pus. The area was then suctioned clean and then irrigated with 0.5 L of sterile irrigation fluid. The cruciate incision was enlarged and additional local anesthetic was applied to the skin. The patient then had the area irrigated with approximately 2 L of sterile irrigation fluid. Hemostasis was obtained along the entire area using Bovie cautery at the skin. In the deep wound cavity, it was packed then with 1/2-inch iodoform packing. The patient was stable throughout the procedure. He had the wound area cleaned and sterile dressing placed of 4 x 4 gauze and ABD pad and tape. He was then returned to recovery in stable condition. MD ISMA [id number]
--- NOTE | 2019-01-16 21:27 | PN ---
Teaching Attending Note Name of Resident: Miracle Flores ATTENDING PHYSICIAN STATEMENT I saw and evaluated the patient. I reviewed the resident's note and discussed the case with the resident. I agree with the resident's findings and plan as documented. SUBJECTIVE: I&D of right buttock , no fever or chills. OBJECTIVE: Vital Signs Temperature 97.5 F L 01/16/19 17:00 Pulse Rate 99 H 01/16/19 17:00 Respiratory Rate 20 01/16/19 17:00 Blood Pressure 86/50 L 01/16/19 17:00 O2 Sat by Pulse Oximetry (%) 100 01/16/19 13:00 GENERAL: The patient is awake, alert, and fully oriented, in no acute distress. HEAD: Normal with no signs of trauma. EYES: PERRL, extraocular movements intact, sclera anicteric, conjunctiva clear. ENT: Ears normal, oropharynx clear without exudates, moist mucous membranes. NECK: Trachea midline, full range of motion, supple. LUNGS: Breath sounds equal, clear to auscultation bilaterally, no wheezes, no crackles, no accessory muscle use. HEART: NSR , S1, S2 without murmur, rub or gallop. ABDOMEN: Soft, NT,ND, normoactive bowel sounds, no guarding, no rebound, no hepatosplenomegaly, no masses. EXTREMITIES: 2+ pulses, warm, well-perfused, no edema. diffuse adenopathy- bilateral axillary and bilateral inguinal adenopathy NEUROLOGICAL: Cranial nerves II through XII grossly intact. Normal speech, gait not observed. PSYCH: Normal mood, normal affect. SKIN: Warm, dry, normal turgor, no rashes or lesions noted Exam: s/p right buttock I&D CBCD WBC 14.1 K/mm3 (4.0-10.0) H 01/15/19 12:40 RBC 3.21 M/mm3 (4.00-5.60) L 01/15/19 12:40 Hgb 9.5 GM/dL (11.7-16.9) L 01/15/19 12:40 Hct 28.1 % (35.4-49) L 01/15/19 12:40 MCV 87.7 fl (80-96) 01/15/19 12:40 MCHC 33.7 g/dl (32.0-35.9) 01/15/19 12:40 RDW 16.4 % (11.9-15.9) H 01/15/19 12:40 Plt Count 146 K/MM3 (134-434) 01/15/19 12:40 MPV 8.6 fl (7.5-11.1) 01/15/19 12:40 CMP Sodium 135 mmol/L (136-145) L 01/16/19 05:45 Potassium 3.7 mmol/L (3.5-5.1) 01/16/19 05:45 Chloride 104 mmol/L (98-107) 01/16/19 05:45 Carbon Dioxide 19 mmol/L (21-32) L 01/16/19 05:45 Anion Gap 11 MMOL/L (8-16) 01/16/19 05:45 BUN 49.0 mg/dL (7-18) H 01/16/19 05:45 Creatinine 2.4 mg/dL (0.55-1.3) H 01/16/19 05:45 Random Glucose 94 mg/dL (74-106) 01/16/19 05:45 Calcium 7.4 mg/dL (8.5-10.1) L 01/16/19 05:45 Total Bilirubin 1.4 mg/dL (0.2-1) H 01/15/19 12:40 AST 20 U/L (15-37) 01/15/19 12:40 ALT 11 U/L (13-61) L 01/15/19 12:40 Alkaline Phosphatase 92 U/L (45-117) 01/15/19 12:40 Total Protein 5.6 g/dl (6.4-8.2) L 01/15/19 12:40 Albumin 1.9 g/dl (3.4-5.0) L 01/15/19 12:40 CARDIAC ENZYMES Creatine Kinase 164 U/L (26-308) 01/13/19 06:38 Troponin I 0.11 ng/ml (0.00-0.05) H 01/13/19 06:38 Current Medications Generic Name Dose Route Start Last Admin Trade Name Freq PRN Reason Stop Dose Admin Acetaminophen 1,000 mg 01/16/19 12:35 Ofirmev Injection - IVPB Q6H PRN PAIN OR FEVER Atorvastatin Calcium 10 mg 01/16/19 22:00 Lipitor - PO HS ARISTEO Carvedilol 25 mg 01/16/19 22:00 Coreg - PO BID ARISTEO Digoxin 0.25 mg 01/17/19 10:00 Lanoxin - PO 01/17/19 23:59 DAILY ARISTEO Sodium Chloride 1,000 mls @ 75 mls/hr 01/16/19 12:35 01/16/19 14:28 Normal Saline - IV 75 mls/hr ASDIR ARISTEO Administration Piperacillin Sod/Tazobactam 50 mls @ 100 mls/hr 01/16/19 18:00 01/16/19 17:44 Sod 3.375 gm/ Dextrose IVPB 100 mls/hr Q8H-IV ARISTEO Administration Protocol Home Medications Medication Instructions Recorded Apixaban [Eliquis] 5 mg PO BID 01/11/19 Atorvastatin Ca [Lipitor] 10 mg PO HS 01/11/19 Carvedilol 25 mg PO BID 01/11/19 Furosemide 80 mg PO DAILY 01/11/19 Furosemide [Lasix -] 40 mg PO BID 01/11/19 Hydralazine HCl 10 mg PO TID 01/11/19 Isosorbide Mononitrate [Imdur -] 30 mg PO DAILY 01/11/19 Sodium Bicarbonate - 2 tab PO TID 01/11/19 Spironolactone 25 mg PO DAILY 01/11/19 CXR: large heart, no acute pathology CT abdomen and pelvis: Coccyx measuring 4.7x3.1x3.3cm, surronding adenopathy is suspected, bladder physiologically is distended, no bladder stones , spondylotic changes of the spine with no aggressive bone lesions seen, scoliosis convexity to the right is present. ASSESSMENT AND PLAN: Patient is a 78 year old male with PMHx significant for HTN, CKD, and AFib. He presented today from home with complaints of diarrhea for the past 4-5 days after eating old meat(beef) from the refrigerator. #POD#0 s/p I&D of the abscess of right gluteal area by . # Afib with RVR , added digoxin as per cardio , continue his Coreg. and will continue `Eliquis is on hold due to elevated INR and patient is going for the procedure I&D and Lymph node Bx. 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 Vascular consulted for further evaluation. # Adenopathy: generalized enlarged LYMPH NODES # Elevated INR on Eliquis is on hold, Pt/inr in am, vit K oral 5mg x2 given , will resume in am #Diarrhea resolved # Anemia with normal MCV due to kidney dz # Thrombocytopenia is improving 127k--146K today # CKD (chronic kidney disease), follos with dr Madison # Hx of Renal mass: patient refused the sx as per his bank representative DVT Px: SCds , on Eliquis on hold will resume in am
[2019-01-16] MEDS: ATORVASTATIN CA 10 MG TABLET (FP) PO SCH (23:17)
[2019-01-17] MEDS ORDERED: PIPERACILLIN/TAZOBACTAM 3.375 GM VIAL IVPB ONE ×3 (02:10→16:28)
[2019-01-17] MEDS ORDERED: DEXTROSE 5%-WATER - 50 ML IVPB ONE ×3 (02:11→16:28)
[2019-01-17] MEDS: PIPERACILLIN/TAZOB 3.375 GM 3.375 GM in DEXTROSE 5%-WATER - 50 ML IVPB SCH ×4 (02:18→17:39)
[2019-01-17 06:59] LABS: BASO % 0.2 % (0-2.0); EOS % 0.5 % (0-4.5); HEMATOCRIT 28.8 % (35.4-49); HEMOGLOBIN 9.9 GM/dL (11.7-16.9); LYMPH % 5.8 % (8-40); MCH 30.2 pg (25.7-33.7); MCHC 34.4 g/dl (32.0-35.9); MEAN CELL VOLUME 87.8 fl (80-96); MEAN PLT VOLUME 8.4 fl (7.5-11.1); MONO % 6.5 % (3.8-10.2); PLATELET COUNT 175 K/MM3 (134-434); RBC 3.27 M/mm3 (4.00-5.60); RDW 16.8 % (11.9-15.9); WHITE BLOOD COUNT 8.5 K/mm3 (4.0-10.0)
[2019-01-17 07:06] LABS: ALBUMIN 1.9 g/dl (3.4-5.0); BILIRUBIN,TOTAL 1.4 mg/dL (0.2-1); BLOOD UREA NITROGEN 47.6 mg/dL (7-18); CALCIUM 7.6 mg/dL (8.5-10.1); CREATININE 2.2 mg/dL (0.55-1.3); MAGNESIUM 2.3 mg/dL (1.8-2.4); POTASSIUM 4.2 mmol/L (3.5-5.1); TOT PROT 5.5 g/dl (6.4-8.2)
--- NOTE | 2019-01-17 08:23 | PN ---
Teaching Attending Note Name of Resident: Miracle Flores ATTENDING PHYSICIAN STATEMENT I saw and evaluated the patient. I reviewed the resident's note and discussed the case with the resident. I agree with the resident's findings and plan as documented. SUBJECTIVE: Patient looks tired but arousable and answers to questions. OBJECTIVE: Vital Signs Temperature 98.0 F 01/17/19 06:00 Pulse Rate 82 01/17/19 06:00 Respiratory Rate 18 01/17/19 07:40 Blood Pressure 96/68 01/17/19 06:00 O2 Sat by Pulse Oximetry (%) 97 01/17/19 07:40 GENERAL: The patient looks very tired today . but oriented , in no acute distress. HEAD: Normal with no signs of trauma. EYES: PERRL, extraocular movements intact, sclera anicteric, conjunctiva clear. ENT: Ears normal, oropharynx clear without exudates, moist mucous membranes. NECK: Trachea midline, full range of motion, supple. LUNGS: Breath sounds equal, clear to auscultation bilaterally, no wheezes, no crackles, no accessory muscle use. HEART: NSR , S1 S2 positive without murmur, rub or gallop. ABDOMEN: Soft, nontender, nondistended, normoactive bowel sounds, no guarding, no rebound, no hepatosplenomegaly, no masses. EXTREMITIES: 2+ pulses, warm, well-perfused, no edema. diffuse adenopathy- bilateral axillary and bilateral inguinal adenopathy NEUROLOGICAL: Cranial nerves II through XII grossly intact. Normal speech, gait not observed. PSYCH: Normal mood, normal affect. SKIN: Warm, dry, normal turgor, no rashes or lesions noted Exam: right buttock induration extending medially continues to drain, no induration of the left buttock, no scrotal involvement CBCD WBC 8.5 K/mm3 (4.0-10.0) 01/17/19 05:30 RBC 3.27 M/mm3 (4.00-5.60) L 01/17/19 05:30 Hgb 9.9 GM/dL (11.7-16.9) L 01/17/19 05:30 Hct 28.8 % (35.4-49) L 01/17/19 05:30 MCV 87.8 fl (80-96) 01/17/19 05:30 MCHC 34.4 g/dl (32.0-35.9) 01/17/19 05:30 RDW 16.8 % (11.9-15.9) H 01/17/19 05:30 Plt Count 175 K/MM3 (134-434) 01/17/19 05:30 MPV 8.4 fl (7.5-11.1) 01/17/19 05:30 CMP Sodium 137 mmol/L (136-145) 01/17/19 06:00 Potassium 4.2 mmol/L (3.5-5.1) 01/17/19 06:00 Chloride 107 mmol/L (98-107) 01/17/19 06:00 Carbon Dioxide 20 mmol/L (21-32) L 01/17/19 06:00 Anion Gap 9 MMOL/L (8-16) 01/17/19 06:00 BUN 47.6 mg/dL (7-18) H 01/17/19 06:00 Creatinine 2.2 mg/dL (0.55-1.3) H 01/17/19 06:00 Random Glucose 97 mg/dL (74-106) 01/17/19 06:00 Calcium 7.6 mg/dL (8.5-10.1) L 01/17/19 06:00 Total Bilirubin 1.4 mg/dL (0.2-1) H 01/17/19 06:00 AST 18 U/L (15-37) 01/17/19 06:00 ALT 9 U/L (13-61) L 01/17/19 06:00 Alkaline Phosphatase 93 U/L (45-117) 01/17/19 06:00 Total Protein 5.5 g/dl (6.4-8.2) L 01/17/19 06:00 Albumin 1.9 g/dl (3.4-5.0) L 01/17/19 06:00 CARDIAC ENZYMES Creatine Kinase 164 U/L (26-308) 01/13/19 06:38 Troponin I 0.11 ng/ml (0.00-0.05) H 01/13/19 06:38 Current Medications Generic Name Dose Route Start Last Admin Trade Name Freq PRN Reason Stop Dose Admin Acetaminophen 1,000 mg 01/16/19 12:35 Ofirmev Injection - IVPB Q6H PRN PAIN OR FEVER Atorvastatin Calcium 10 mg 01/16/19 22:00 01/16/19 23:17 Lipitor - PO 10 mg HS ARISTEO Administration Carvedilol 25 mg 01/16/19 22:00 01/16/19 23:17 Coreg - PO 25 mg BID ARISTEO Administration Digoxin 0.25 mg 01/17/19 10:00 Lanoxin - PO 01/17/19 23:59 DAILY ARISTEO Sodium Chloride 1,000 mls @ 75 mls/hr 01/16/19 12:35 01/16/19 14:28 Normal Saline - IV 75 mls/hr ASDIR ARISTEO Administration Piperacillin Sod/Tazobactam 50 mls @ 100 mls/hr 01/16/19 18:00 01/17/19 02:18 Sod 3.375 gm/ Dextrose IVPB 100 mls/hr Q8H-IV ARISTEO Administration Protocol Home Medications Medication Instructions Recorded Apixaban [Eliquis] 5 mg PO BID 01/11/19 Atorvastatin Ca [Lipitor] 10 mg PO HS 01/11/19 Carvedilol 25 mg PO BID 01/11/19 Furosemide 80 mg PO DAILY 01/11/19 Furosemide [Lasix -] 40 mg PO BID 01/11/19 Hydralazine HCl 10 mg PO TID 01/11/19 Isosorbide Mononitrate [Imdur -] 30 mg PO DAILY 01/11/19 Sodium Bicarbonate - 2 tab PO TID 01/11/19 Spironolactone 25 mg PO DAILY 01/11/19 CXR: large heart, no acute pathology CT abdomen and pelvis: Coccyx measuring 4.7x3.1x3.3cm, surronding adenopathy is suspected, bladder physiologically is distended, no bladder stones , spondylotic changes of the spine with no aggressive bone lesions seen, scoliosis convexity to the right is present. ASSESSMENT AND PLAN: Patient is a 78 year old male with PMHx significant for HTN, CKD, and AFib. He presented today from home with complaints of diarrhea for the past 4-5 days after eating old meat(beef) from the refrigerator. #POD#1 s/p I&D of the abscess of right gluteal area by . patient refused axillary node bx # Afib with rate controlled today, continue digoxin as per cardio , continue his Coreg. 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 Vascular consulted for further evaluation. will check with the patient whether would like any further intervention at this time and will check with to evaluate the patient further. # Adenopathy: generalized enlarged LYMPH NODES. # Elevated INR on Eliquis is on hold, Pt/inr in am, vit K oral 5mg x2 given , will resume in am #Diarrhea resolved # Anemia with normal MCV due to kidney dz # Thrombocytopenia is improving 127k--146K today # CKD (chronic kidney disease), follows with dr Madison # Hx of Renal mass: patient refused the sx as per his admission liaison DVT Px: SCds , on Eliquis now
[2019-01-17] MEDS ORDERED: DIGOXIN 0.125 MG TABLET (FP) PO SCH (09:00)
[2019-01-17] MEDS: CARVEDILOL 25 MG TABLET (FP) PO SCH ×2 (09:16→22:49)
[2019-01-17] MEDS ORDERED: DIGOXIN 0.25 MG TABLET (FP) PO SCH (10:00)
--- NOTE | 2019-01-17 12:14 | PN ---
Progress Note (short form) - Note Progress Note: s: no chest pain, palps, dizziness, dyspnea Current Medications Acetaminophen (Ofirmev Injection -) 1,000 mg IVPB Q6H PRN PRN Reason: PAIN OR FEVER Atorvastatin Calcium (Lipitor -) 10 mg PO HS COUNT INCLUDES THE [facility] Last Admin: 01/16/19 23:17 Dose: 10 mg Carvedilol (Coreg -) 25 mg PO BID ARISTEO Last Admin: 01/17/19 09:16 Dose: 25 mg Digoxin (Lanoxin -) 0.25 mg PO DAILY COUNT INCLUDES THE [facility] Stop: 01/17/19 23:59 Last Admin: 01/17/19 09:16 Dose: 0.25 mg Sodium Chloride (Normal Saline -) 1,000 mls @ 75 mls/hr IV ASDIR ARISTEO Last Admin: 01/16/19 14:28 Dose: 75 mls/hr Piperacillin Sod/Tazobactam (Sod 3.375 gm/ Dextrose) 50 mls @ 100 mls/hr IVPB Q8H-IV ARISTEO; Protocol Last Admin: 01/17/19 09:17 Dose: 100 mls/hr Vital Signs Period Temp Pulse Resp BP Sys/Finney Pulse Ox Last 24 Hr 97.5 F-98.0 F 67-103 14-20 86-98/50-68 96-100 NAD ctab, no rales nl s1, s2, rrr soft, nt, nd +bs no edema aox3 not agitated no jaundice, diaphoresis Assessment/Plan Echo 01/19: severe conc LVH; severely reduced EF 25-30%, global. mild RVE/mild decr RVSF. severe L/KARISSA. trace MR, mild AI, mod TR. RVSP 40-50. severely dilated IVC per d/w dr rousseau: echo 01/2018: EF 40-45%, mod conc LVH MPI 2014: no ischemia tele: AF hr 80s-100s; episodes RVR 120s IMP: -Atrial fibrillation w/ RVR likely driven by volume depletion, infection, anemia -Severe LV dysfx: ?new?, ?etiology, ?rate related? 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 distal aorta 2.8 cm, right common iliac 2.2 cm, L common iliac 1.9 -JAMIA on CKD, baseline creatinine 2.[address] rousseau -anemia REC: -holding spirono, Imdur and Hydralazine in setting of hypotension, volume depletion due to diarrhea. -continue carvedilol 25 bid as bp allows --would tolerate systolic BP > 90 here -continue digoxin for adjunct rate control in this setting (low BP/low EF). - monitor volume status while receiving IVF -Continue tele -Further w/u of LAD/renal mass/paracoccygeal mass as per primary team. -hgb stable, monitor trend -renal fxn slightly above baseline--per renal team -followup vascular surgery eval re: ? AAA, bilateral STANTON aneurysms largest 2.2 cm -replete K/Mag > 4/2 -consider cardiac amyloid w/u as outpatient given severe LVH (per Dr. Tovar, d/w 'd dr rousseau) -Eliquis was held for I&D of abscess, resume post op when feasible from surgical standpoint.
[2019-01-17] MEDS ORDERED: APIXABAN 5 MG TABLET PO SCH (12:30)
--- NOTE | 2019-01-17 14:09 | PN ---
Progress Note (short form) - Note Progress Note: POD #1 s/p I&D R gluteal abscess under local/sedation. Patient doing well, pain controlled. Denies n/v. Patient has no complaints. All questions answered.
--- NOTE | 2019-01-17 14:24 | PN ---
Physical Exam: SUBJECTIVE: Patient seen and examined. Patient is POD1. Denies any pain, fever, diarrheal episodes. OBJECTIVE: Vital Signs Period Temp Pulse Resp BP Sys/Finney Pulse Ox Last 24 Hr 97.5 F-98.0 F 67-99 18-20 86-98/50-68 96-97 GENERAL: The patient is awake, alert, and fully oriented, in no acute distress. HEAD: Normal with no signs of trauma. LUNGS: Breath sounds equal, clear to auscultation bilaterally, no wheezes, no crackles, no accessory muscle use. HEART: Regular rate and rhythm, S1, S2 without murmur, rub or gallop. ABDOMEN: Soft, nontender, nondistended, normoactive bowel sounds, no guarding, no rebound, no hepatosplenomegaly, no masses. EXTREMITIES: 2+ pulses, warm, well-perfused, no edema. SKIN: Warm, dry, normal turgor, with packing and dressing covering perianal site Laboratory Results - last 24 hr 01/17/19 01/17/19 01/17/19 05:30 05:30 06:00 WBC 8.5 RBC 3.27 L Hgb 9.9 L Hct 28.8 L MCV 87.8 MCH 30.2 MCHC 34.4 RDW 16.8 H Plt Count 175 MPV 8.4 Absolute Neuts (auto) 7.4 Neutrophils % 87.0 H Lymphocytes % 5.8 L D Monocytes % 6.5 Eosinophils % 0.5 D Basophils % 0.2 Nucleated RBC % 0 Sodium 137 Potassium 4.2 Chloride 107 Carbon Dioxide 20 L Anion Gap 9 BUN 47.6 H Creatinine 2.2 H Est GFR (CKD-EPI)AfAm 31.84 Est GFR (CKD-EPI)NonAf 27.47 POC Glucometer Random Glucose 97 Calcium 7.6 L Magnesium 2.3 Total Bilirubin 1.4 H AST 18 ALT 9 L Alkaline Phosphatase 93 Total Protein 5.5 L Albumin 1.9 L Digoxin 0.61 L 01/17/19 11:01 WBC RBC Hgb Hct MCV MCH MCHC RDW Plt Count MPV Absolute Neuts (auto) Neutrophils % Lymphocytes % Monocytes % Eosinophils % Basophils % Nucleated RBC % Sodium Potassium Chloride Carbon Dioxide Anion Gap BUN Creatinine Est GFR (CKD-EPI)AfAm Est GFR (CKD-EPI)NonAf POC Glucometer 104 Random Glucose Calcium Magnesium Total Bilirubin AST ALT Alkaline Phosphatase Total Protein Albumin Digoxin Active Medications Generic Name Dose Route Start Last Admin Trade Name Freq PRN Reason Stop Dose Admin Acetaminophen 1,000 mg 01/16/19 12:35 Ofirmev Injection - IVPB Q6H PRN PAIN OR FEVER Apixaban 2.5 mg 01/17/19 12:48 Eliquis - PO BID ARISTEO Atorvastatin Calcium 10 mg 01/16/19 22:00 01/16/19 23:17 Lipitor - PO 10 mg HS ARISTEO Administration Carvedilol 25 mg 01/16/19 22:00 01/17/19 09:16 Coreg - PO 25 mg BID ARISTEO Administration Digoxin 0.25 mg 01/17/19 10:00 01/17/19 09:16 Lanoxin - PO 01/17/19 23:59 0.25 mg DAILY ARISTEO Administration Sodium Chloride 1,000 mls @ 75 mls/hr 01/16/19 12:35 01/16/19 14:28 Normal Saline - IV 75 mls/hr ASDIR ARISTEO Administration Piperacillin Sod/Tazobactam 50 mls @ 100 mls/hr 01/16/19 18:00 01/17/19 09:17 Sod 3.375 gm/ Dextrose IVPB 100 mls/hr Q8H-IV ARISTEO Administration Protocol ASSESSMENT/PLAN: 78 y/o M w/ PMHx HTN, CKD, and AFib on Eliquis with diarrhea. Sepsis Perirectal abcess drainage POD1 Pt s/p I&D 01/16/19 : 50ml of elsa pus removed with wound cultures sent Per ID cont IV zosyn until operative cultures results. LN biopsy refuses. 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 CKD As per nephro, monitor electrolytes. creatinine trending down to 2.2 today AFib with RVR d/c Eliquis 5mg BD, (INR 3.8, high GFR) today INR 1.76 restart eliquis at low dose 2.5mg PO BID as per Cardio approval HTN and CHF Pt restarted on coreg. Digoxin 0.25mg PO today (digoxin blood levil 0.61) Monitor BP lipitor 10mg PO restarted DVT PPX SCDs Visit type - Emergency Visit Emergency Visit: Yes ED Registration Date: 01/12/19 Care time: The patient presented to the Emergency Department on the above date and was hospitalized for further evaluation of their emergent condition. - New Patient This patient is new to me today: No - Critical Care Critical Care patient: No - Discharge Referral Referred to [facility] Med P.C[facility] No ATTENDING PHYSICIAN STATEMENT I saw and evaluated the patient. I reviewed the resident's note and discussed the case with the resident. I agree with the resident's findings and plan as documented. SUBJECTIVE: OBJECTIVE: ASSESSMENT AND PLAN:
--- NOTE | 2019-01-17 15:07 | PN ---
Progress Note, Physician History of Present Illness: Pt seen and examined at bedside. He is awake and alert. He denies shortness of breath. - Current Medication List Current Medications: Active Medications Acetaminophen (Ofirmev Injection -) 1,000 mg IVPB Q6H PRN PRN Reason: PAIN OR FEVER Apixaban (Eliquis -) 2.5 mg PO BID ARISTEO Atorvastatin Calcium (Lipitor -) 10 mg PO HS ARISTEO Last Admin: 01/16/19 23:17 Dose: 10 mg Carvedilol (Coreg -) 25 mg PO BID ARISTEO Last Admin: 01/17/19 09:16 Dose: 25 mg Digoxin (Lanoxin -) 0.25 mg PO DAILY ARISTEO Stop: 01/17/19 23:59 Last Admin: 01/17/19 09:16 Dose: 0.25 mg Sodium Chloride (Normal Saline -) 1,000 mls @ 75 mls/hr IV ASDIR ARISTEO Last Admin: 01/16/19 14:28 Dose: 75 mls/hr Piperacillin Sod/Tazobactam (Sod 3.375 gm/ Dextrose) 50 mls @ 100 mls/hr IVPB Q8H-IV ARISTEO; Protocol Last Admin: 01/17/19 09:17 Dose: 100 mls/hr - Objective Vital Signs: Vital Signs Temperature 97.5 F L 01/17/19 10:00 Pulse Rate 70 01/17/19 10:00 Respiratory Rate 20 01/17/19 10:00 Blood Pressure 96/64 01/17/19 10:00 O2 Sat by Pulse Oximetry (%) 97 01/17/19 07:40 Constitutional: Yes: Calm Eyes: Yes: Conjunctiva Clear HENT: Yes: Atraumatic Neck: Yes: Supple Cardiovascular: Yes: S1, S2 Respiratory: Yes: CTA Bilaterally Gastrointestinal: Yes: Soft Genitourinary: Yes: WNL Musculoskeletal: Yes: WNL Edema: Yes Edema: LLE: 1+, RLE: 1+ Neurological: Yes: Oriented Psychiatric: Yes: Oriented Labs: CBC, BMP 01/17/19 05:30 01/17/19 06:00 INR, PTT INR 1.76 (0.83-1.09) H 01/16/19 05:45 Assessment/Plan Current Medications Generic Name Dose Route Start Last Admin Trade Name Freq PRN Reason Stop Dose Admin Acetaminophen 1,000 mg 01/16/19 12:35 Ofirmev Injection - IVPB Q6H PRN PAIN OR FEVER Apixaban 2.5 mg 01/17/19 12:48 Eliquis - PO BID ARISTEO Atorvastatin Calcium 10 mg 01/16/19 22:00 01/16/19 23:17 Lipitor - PO 10 mg HS ARISTEO Administration Carvedilol 25 mg 01/16/19 22:00 01/17/19 09:16 Coreg - PO 25 mg BID ARISTEO Administration Digoxin 0.25 mg 01/17/19 10:00 01/17/19 09:16 Lanoxin - PO 01/17/19 23:59 0.25 mg DAILY ARISTEO Administration Sodium Chloride 1,000 mls @ 75 mls/hr 01/16/19 12:35 01/16/19 14:28 Normal Saline - IV 75 mls/hr ASDIR ARISTEO Administration Piperacillin Sod/Tazobactam 50 mls @ 100 mls/hr 01/16/19 18:00 01/17/19 09:17 Sod 3.375 gm/ Dextrose IVPB 100 mls/hr Q8H-IV ARISTEO Administration Protocol Impression 1. CKD 2. CHF 3. a-fib 4. hx renal mass 5. dawna-rectal abscess 6. htn Plan - pt seen and examined at bedside - please d/c fluids as he is off diuretics - vascular follow up - abx per medical team - avoid nephrotoxins
[2019-01-17] MEDS: SODIUM CHLORIDE 1,000 ML IV SCH (15:16)
[2019-01-17] MEDS: ATORVASTATIN CA 10 MG TABLET (FP) PO SCH (22:49)
[2019-01-17] MEDS: APIXABAN 5 MG TABLET PO SCH (22:49)
[2019-01-18] MEDS ORDERED: PIPERACILLIN/TAZOBACTAM 3.375 GM VIAL IVPB ONE ×3 (04:19→16:30)
[2019-01-18] MEDS ORDERED: DEXTROSE 5%-WATER - 50 ML IVPB ONE ×3 (04:20→16:30)
[2019-01-18 08:05] LABS: BASO % 0.4 % (0-2.0); EOS % 0.7 % (0-4.5); HEMATOCRIT 29.6 % (35.4-49); LYMPH % 9.1 % (8-40); MCHC 33.9 g/dl (32.0-35.9); MEAN CELL VOLUME 88.5 fl (80-96); MEAN PLT VOLUME 8.3 fl (7.5-11.1); MONO % 7.7 % (3.8-10.2); NEUT % 82.1 % (42.8-82.8); PLATELET COUNT 217 K/MM3 (134-434); RBC 3.35 M/mm3 (4.00-5.60); RDW 16.2 % (11.9-15.9); WHITE BLOOD COUNT 6.8 K/mm3 (4.0-10.0)
[2019-01-18 08:14] LABS: INR 1.54 (0.83-1.09); PROTHROMBIN TIME (PATIENT) 18.2 SEC (9.7-13.0)
[2019-01-18 08:43] LABS: BLOOD UREA NITROGEN 41.4 mg/dL (7-18); CALCIUM 7.7 mg/dL (8.5-10.1); CREATININE 1.9 mg/dL (0.55-1.3); POTASSIUM 4.5 mmol/L (3.5-5.1)
[2019-01-18] MEDS: PIPERACILLIN/TAZOB 3.375 GM 3.375 GM in DEXTROSE 5%-WATER - 50 ML IVPB SCH ×2 (09:27→17:03)
[2019-01-18] MEDS: APIXABAN 5 MG TABLET PO SCH ×2 (09:27→22:29)
[2019-01-18] MEDS: CARVEDILOL 25 MG TABLET (FP) PO SCH ×2 (09:27→22:30)
--- NOTE | 2019-01-18 13:21 | PN ---
Progress Note, Physician History of Present Illness: Pt seen and examined at bedside. He is awake and alert. He denies shortness of breath. - Current Medication List Current Medications: Active Medications Acetaminophen (Ofirmev Injection -) 1,000 mg IVPB Q6H PRN PRN Reason: PAIN OR FEVER Apixaban (Eliquis -) 2.5 mg PO BID ARISTEO Last Admin: 01/18/19 09:27 Dose: 2.5 mg Atorvastatin Calcium (Lipitor -) 10 mg PO HS ARISTEO Last Admin: 01/17/19 22:49 Dose: 10 mg Carvedilol (Coreg -) 25 mg PO BID ARISTEO Last Admin: 01/18/19 09:27 Dose: 25 mg Piperacillin Sod/Tazobactam (Sod 3.375 gm/ Dextrose) 50 mls @ 100 mls/hr IVPB Q8H-IV ARISTEO; Protocol Last Admin: 01/18/19 09:27 Dose: 100 mls/hr - Objective Vital Signs: Vital Signs Temperature 98 F 01/18/19 08:45 Pulse Rate 68 01/18/19 08:45 Respiratory Rate 18 01/18/19 08:45 Blood Pressure 94/66 01/18/19 08:45 O2 Sat by Pulse Oximetry (%) 97 01/17/19 21:00 Constitutional: Yes: Calm Eyes: Yes: Conjunctiva Clear HENT: Yes: Atraumatic Neck: Yes: Supple Cardiovascular: Yes: S1, S2 Respiratory: Yes: CTA Bilaterally Gastrointestinal: Yes: Soft Genitourinary: Yes: WNL Edema: Yes Edema: LLE: Trace, RLE: Trace Neurological: Yes: Oriented Psychiatric: Yes: Oriented Labs: CBC, BMP 01/18/19 06:40 01/18/19 06:40 INR, PTT INR 1.54 (0.83-1.09) H 01/18/19 06:40 Assessment/Plan Current Medications Generic Name Dose Route Start Last Admin Trade Name Freq PRN Reason Stop Dose Admin Acetaminophen 1,000 mg 01/16/19 12:35 Ofirmev Injection - IVPB Q6H PRN PAIN OR FEVER Apixaban 2.5 mg 01/17/19 12:48 01/18/19 09:27 Eliquis - PO 2.5 mg BID ARISTEO Administration Atorvastatin Calcium 10 mg 01/16/19 22:00 01/17/19 22:49 Lipitor - PO 10 mg HS ARISTEO Administration Carvedilol 25 mg 01/16/19 22:00 01/18/19 09:27 Coreg - PO 25 mg BID ARISTEO Administration Piperacillin Sod/Tazobactam 50 mls @ 100 mls/hr 01/16/19 18:00 01/18/19 09:27 Sod 3.375 gm/ Dextrose IVPB 100 mls/hr Q8H-IV ARISTEO Administration Protocol Impression 1. CKD 2. CHF 3. a-fib 4. hx renal mass 5. dawna-rectal abscess 6. htn Plan - monitor renal funciton - lasix and aldactone on hold - abx per primary team - vascular follow up - avoid nephrotoxins
--- NOTE | 2019-01-18 14:55 | PN ---
Physical Exam: SUBJECTIVE: Patient seen and examined. Pt felt better than yesterday. He felt a bit weak in general and decreased appetite but ate some of his food anyway OBJECTIVE: Vital Signs Period Temp Pulse Resp BP Sys/Finney Pulse Ox Last 24 Hr 97.3 F-98.4 F 68-74 18-20 90-112/39-70 97-98 GENERAL: The patient is awake, alert, and fully oriented, in no acute distress. HEAD: Normal with no signs of trauma. LUNGS: Breath sounds equal, clear to auscultation bilaterally, no wheezes, no crackles, no accessory muscle use. HEART: Regular rate and rhythm, S1, S2 without murmur, rub or gallop. ABDOMEN: Soft, nontender, nondistended, normoactive bowel sounds, no guarding, no rebound, no hepatosplenomegaly, no masses. EXTREMITIES: 2+ pulses, warm, well-perfused, no edema. SKIN: Warm, dry, normal turgor, with packing and dressing covering perianal site Laboratory Results - last 24 hr 01/18/19 01/18/19 01/18/19 06:40 06:40 06:40 WBC 6.8 RBC 3.35 L Hgb 10.0 L Hct 29.6 L MCV 88.5 MCH 30.0 MCHC 33.9 RDW 16.2 H Plt Count 217 D MPV 8.3 Absolute Neuts (auto) 5.6 Neutrophils % 82.1 Lymphocytes % 9.1 D Monocytes % 7.7 Eosinophils % 0.7 Basophils % 0.4 Nucleated RBC % 0 PT with INR 18.20 H INR 1.54 H Sodium 136 Potassium 4.5 Chloride 108 H Carbon Dioxide 20 L Anion Gap 8 BUN 41.4 H Creatinine 1.9 H Est GFR (CKD-EPI)AfAm 38.02 Est GFR (CKD-EPI)NonAf 32.80 Random Glucose 100 Calcium 7.7 L Active Medications Generic Name Dose Route Start Last Admin Trade Name Freq PRN Reason Stop Dose Admin Acetaminophen 1,000 mg 01/16/19 12:35 Ofirmev Injection - IVPB Q6H PRN PAIN OR FEVER Apixaban 2.5 mg 01/17/19 12:48 01/18/19 09:27 Eliquis - PO 2.5 mg BID ARISTEO Administration Atorvastatin Calcium 10 mg 01/16/19 22:00 01/17/19 22:49 Lipitor - PO 10 mg HS ARISTEO Administration Carvedilol 25 mg 01/16/19 22:00 01/18/19 09:27 Coreg - PO 25 mg BID ARISTEO Administration Piperacillin Sod/Tazobactam 50 mls @ 100 mls/hr 01/16/19 18:00 01/18/19 09:27 Sod 3.375 gm/ Dextrose IVPB 100 mls/hr Q8H-IV ARISTEO Administration Protocol ASSESSMENT/PLAN: 78 y/o M w/ PMHx HTN, CKD, and AFib on Eliquis with diarrhea. Sepsis Perirectal abcess drainage POD2 Pt s/p I&D 01/16/19 : 50ml of elsa pus removed with wound cultures sent Per ID cont IV zosyn until operative cultures results. 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 Pending Vascular surgery Plan CKD As per nephro, monitor electrolytes. creatinine trending down to 1.9 today from 2.2 yesterday AFib with RVR restarted on eliquis at low dose 2.5mg PO BID PT 18.2 INR 1.54 today HTN and CHF Pt restarted on coreg. Digoxin 0.25mg PO today (digoxin blood levil 0.61) Monitor BP lipitor 10mg PO restarted DVT PPX SCDs Visit type - Emergency Visit Emergency Visit: Yes ED Registration Date: 01/12/19 Care time: The patient presented to the Emergency Department on the above date and was hospitalized for further evaluation of their emergent condition. - New Patient This patient is new to me today: No - Critical Care Critical Care patient: No - Discharge Referral Referred to [facility] Med P.C[facility] No ATTENDING PHYSICIAN STATEMENT I saw and evaluated the patient. I reviewed the resident's note and discussed the case with the resident. I agree with the resident's findings and plan as documented. SUBJECTIVE: OBJECTIVE: ASSESSMENT AND PLAN:
--- NOTE | 2019-01-18 15:34 | PN ---
Progress Note (short form) - Note Progress Note: s: no chest pain, palps, dizziness, dyspnea Current Medications Generic Name Dose Route Start Last Admin Trade Name Freq PRN Reason Stop Dose Admin Acetaminophen 1,000 mg 01/16/19 12:35 Ofirmev Injection - IVPB Q6H PRN PAIN OR FEVER Apixaban 2.5 mg 01/17/19 12:48 01/18/19 09:27 Eliquis - PO 2.5 mg BID ARISTEO Administration Atorvastatin Calcium 10 mg 01/16/19 22:00 01/17/19 22:49 Lipitor - PO 10 mg HS ARISTEO Administration Carvedilol 25 mg 01/16/19 22:00 01/18/19 09:27 Coreg - PO 25 mg BID ARISTEO Administration Piperacillin Sod/Tazobactam 50 mls @ 100 mls/hr 01/16/19 18:00 01/18/19 09:27 Sod 3.375 gm/ Dextrose IVPB 100 mls/hr Q8H-IV ARISTEO Administration Protocol Vital Signs Period Temp Pulse Resp BP Sys/Finney Pulse Ox Last 24 Hr 97.3 F-98.4 F 68-74 18-20 90-112/39-70 97-98 NAD ctab, no rales nl s1, s2, rrr soft, nt, nd +bs no edema aox3 not agitated no jaundice, diaphoresis CBC, BMP 01/18/19 06:40 01/18/19 06:40 Assessment/Plan Echo 01/19: severe conc LVH; severely reduced EF 25-30%, global. mild RVE/mild decr RVSF. severe L/KARISSA. trace MR, mild AI, mod TR. RVSP 40-50. severely dilated IVC per d/w dr rousseau: echo 01/2018: EF 40-45%, mod conc LVH MPI 2015: no ischemia tele: AF, rate ok IMP: -Atrial fibrillation w/ RVR likely driven by volume depletion, infection, anemia -Severe LV dysfx: ?new?, ?etiology, ?rate related? 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 distal aorta 2.8 cm, right common iliac 2.2 cm, L common iliac 1.9 -JAMIA on CKD, baseline creatinine 2.[address] rousseau -anemia REC: -holding spirono, Imdur and Hydralazine in setting of hypotension, volume depletion due to diarrhea. -continue carvedilol 25 bid as bp allows --would tolerate systolic BP > 90 here -continue digoxin for adjunct rate control in this setting (low BP/low EF). -Further w/u of renal mass/paracoccygeal mass as per primary team. -renal fxn slightly above baseline--per renal team -followup vascular surgery eval re: ? AAA, bilateral STANTON aneurysms largest 2.2 cm -consider cardiac amyloid w/u as outpatient given severe LVH (per Dr. Tovar, d/w 'd dr rousseau) -Eliquis was held for I&D of abscess, resumed post op now
--- NOTE | 2019-01-18 17:31 | PN ---
Progress Note (short form) - Note Progress Note: VAscular Surgery CT abd and pelvis images reviewed. 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 Pt also has a renal mass that has not been worked up due to pt not wanting any workup. According to CT, the mass is suspicious for malignancy. Would watch the 3.8cm fusiform aneurysm and work up renal mass first to rule out malignancy. CAn follow aneurysm as outpt. Pt has imaging from [facility]. That would be helpful to see if the aneursym is growing. Will follow Jose Hu DO
--- NOTE | 2019-01-18 19:16 | PN ---
Teaching Attending Note Name of Resident: Caitlyn Khan ATTENDING PHYSICIAN STATEMENT I saw and evaluated the patient. I reviewed the resident's note and discussed the case with the resident. I agree with the resident's findings and plan as documented. SUBJECTIVE: no fever or chills. No no pain, has no SOB . OBJECTIVE: NAD CV : RRr Lungs: CTAB Ext : 1+ pitting edema o n legs. Abd: soft, NT, ND, NL BS Skin L: R gluteal wound with packing , with no surrounding erythema . no LAP in axillary areas or neck ASSESSMENT AND PLAN: 89 y/o man with h/o a fib , diffuse LAP, , CKD, known renal mass, HTN, LVH, who presented with diarrhea . he was found to have glutela abscess 1- Gluteal abscess: s/p I&D. d/w Sx. remove packing and apply dry dressing. cont Abx f/u final cx will d/w ID 2- diffuse LAP, and prococcygeal mass w/u as out pt . 3- renal mass: w/u as out pt 4- Common iliac artery aneusysm. vascular recs not to perform sx 5- A fib with RVR: now controlled. cont coreg /digoxin . cont eliquis 6- H/o HTn: cont coreg . hold rest of meds 7- Severe cardiomyopathy and LVH : lasix on hold. w/u for causes ( amyloidosis ) as out pt will probably need to resume some lasix at dc 8- possible dc home tomorrow
[2019-01-18] MEDS: ATORVASTATIN CA 10 MG TABLET (FP) PO SCH (22:29)
[2019-01-19] MEDS ORDERED: DEXTROSE 5%-WATER - 50 ML IVPB ONE ×3 (01:02→17:00)
[2019-01-19] MEDS ORDERED: PIPERACILLIN/TAZOBACTAM 3.375 GM VIAL IVPB ONE ×3 (01:02→17:00)
[2019-01-19] MEDS: PIPERACILLIN/TAZOB 3.375 GM 3.375 GM in DEXTROSE 5%-WATER - 50 ML IVPB SCH ×3 (02:33→17:05)
[2019-01-19 07:53] LABS: BASO % 0.6 % (0-2.0); EOS % 0.9 % (0-4.5); HEMATOCRIT 29.9 % (35.4-49); HEMOGLOBIN 10.2 GM/dL (11.7-16.9); LYMPH % 10.5 % (8-40); MCHC 34.1 g/dl (32.0-35.9); MEAN CELL VOLUME 88.1 fl (80-96); MEAN PLT VOLUME 8.2 fl (7.5-11.1); MONO % 7.7 % (3.8-10.2); NEUT % 80.3 % (42.8-82.8); PLATELET COUNT 218 K/MM3 (134-434); RBC 3.39 M/mm3 (4.00-5.60); RDW 16.9 % (11.9-15.9); WHITE BLOOD COUNT 5.6 K/mm3 (4.0-10.0)
[2019-01-19 08:06] LABS: BLOOD UREA NITROGEN 32.8 mg/dL (7-18); CALCIUM 7.5 mg/dL (8.5-10.1); CREATININE 1.7 mg/dL (0.55-1.3); POTASSIUM 4.4 mmol/L (3.5-5.1)
[2019-01-19] MEDS ORDERED: NAPH,MB-DB/K PH,MBDB POWDER PACKET PO ONE (08:45)
[2019-01-19] MEDS: CARVEDILOL 25 MG TABLET (FP) PO SCH ×2 (09:52→22:27)
[2019-01-19] MEDS: APIXABAN 5 MG TABLET PO SCH ×2 (09:52→22:25)
--- NOTE | 2019-01-19 11:18 | PN ---
Progress Note (short form) - Note Progress Note: s: no chest pain, palps, dizziness, dyspnea Current Medications Generic Name Dose Route Start Last Admin Trade Name Freq PRN Reason Stop Dose Admin Acetaminophen 1,000 mg 01/16/19 12:35 Ofirmev Injection - IVPB Q6H PRN PAIN OR FEVER Apixaban 2.5 mg 01/17/19 12:48 01/19/19 09:52 Eliquis - PO 2.5 mg BID ARISTEO Administration Atorvastatin Calcium 10 mg 01/16/19 22:00 01/18/19 22:29 Lipitor - PO 10 mg HS ARISTEO Administration Carvedilol 25 mg 01/16/19 22:00 01/19/19 09:52 Coreg - PO 25 mg BID ARISTEO Administration Piperacillin Sod/Tazobactam 50 mls @ 100 mls/hr 01/16/19 18:00 01/19/19 09:51 Sod 3.375 gm/ Dextrose IVPB 100 mls/hr Q8H-IV ARISTEO Administration Protocol Vital Signs Period Temp Pulse Resp BP Sys/Finney Pulse Ox Last 24 Hr 97.4 F-98.0 F 60-68 18-20 88-98/57-76 96 NAD ctab, no rales nl s1, s2, rrr soft, nt, nd +bs no edema aox3 not agitated no jaundice, diaphoresis CBC, BMP 01/19/19 06:19 01/19/19 06:19 Assessment/Plan Echo 01/19: severe conc LVH; severely reduced EF 25-30%, global. mild RVE/mild decr RVSF. severe L/KARISSA. trace MR, mild AI, mod TR. RVSP 40-50. severely dilated IVC per d/w dr rousseau: echo 01/2018: EF 40-45%, mod conc LVH MPI 2015: no ischemia tele: AF, rate ok IMP: -Atrial fibrillation w/ RVR likely driven by volume depletion, infection, anemia -Severe LV dysfx: ?new?, ?etiology, ?rate related? 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 distal aorta 2.8 cm, right common iliac 2.2 cm, L common iliac 1.9 -JAMIA on CKD, baseline creatinine 2.[address] rousseau -anemia REC: -holding spirono, Imdur, lasix, and Hydralazine in setting of hypotension, volume depletion due to diarrhea. -continue carvedilol 25 bid as bp allows --would tolerate systolic BP > 90 here -continue digoxin for adjunct rate control in this setting (low BP/low EF). -Further w/u of renal mass/paracoccygeal mass as per primary team. -cr near baseline -outpt f/u for aortic aneurysm per vascular -consider cardiac amyloid w/u as outpatient given severe LVH (per Dr. Tovar, d/w 'd dr rousseau) -Eliquis was held for I&D of abscess, resumed post op now -cardiac fonseca stable on current meds. bp remains too low to resume other home cardiac meds. Will need close outpt cardio f/u to reinstate meds when possible.
--- NOTE | 2019-01-19 14:10 | PN ---
Teaching Attending Note Name of Resident: Caitlyn Khan ATTENDING PHYSICIAN STATEMENT I saw and evaluated the patient. I reviewed the resident's note and discussed the case with the resident. I agree with the resident's findings and plan as documented. SUBJECTIVE: no fever or chills. has some discomfort in R gluteal area at wound site OBJECTIVE: NAD CV: RRR Lungs: CTAB Ext : 1+ pitting edema on legs. Abd: soft, NT, ND, NL BS Skin L: R gluteal wound with packing . packing removed, deep wound with bloody discharge . wound was irrigated with saline. no surrounding erythema . ASSESSMENT AND PLAN: 89 y/o man with h/o a fib , diffuse LAP, , CKD, known renal mass, HTN, LVH, who presented with diarrhea . he was found to have glutela abscess 1- Gluteal abscess: s/p I&D. - wound cx with VRE sensitive to Linesolide and Dapto, will d/w ID . - Asked Dr. Domínguez to evaluate wound and provide wound care instructions 2- Diffuse LAP, and prococcygeal mass. d/w patient , he continue to refuse any w /u as inpatient. he understands the possibility of cancer 3- Renal mass: w/u as out pt 4- Common iliac artery aneusysm. vascular recs not to perform sx. 5- A fib with RVR: now controlled. cont coreg /digoxin . cont eliquis 6- H/o HTN: cont coreg . hold rest of meds 7- Severe cardiomyopathy and LVH : lasix on hold. w/u for causes ( amyloidosis ) as out pt will probably need to resume some lasix at dc . will d/w card He is interested in a VNS. will decide on dc after Id and surgery eval of the wound
--- NOTE | 2019-01-19 15:46 | PN ---
Progress Note, Physician History of Present Illness: Pt seen and examined at bedside. He wants to go home. He denies fevers or chills. - Current Medication List Current Medications: Active Medications Acetaminophen (Ofirmev Injection -) 1,000 mg IVPB Q6H PRN PRN Reason: PAIN OR FEVER Apixaban (Eliquis -) 2.5 mg PO BID ARISTEO Last Admin: 01/19/19 09:52 Dose: 2.5 mg Atorvastatin Calcium (Lipitor -) 10 mg PO HS ARISTEO Last Admin: 01/18/19 22:29 Dose: 10 mg Carvedilol (Coreg -) 25 mg PO BID ARISTEO Last Admin: 01/19/19 09:52 Dose: 25 mg Piperacillin Sod/Tazobactam (Sod 3.375 gm/ Dextrose) 50 mls @ 100 mls/hr IVPB Q8H-IV ARISTEO; Protocol Last Admin: 01/19/19 09:51 Dose: 100 mls/hr - Objective Vital Signs: Vital Signs Temperature 97.8 F 01/19/19 14:38 Pulse Rate 64 01/19/19 14:38 Respiratory Rate 20 01/19/19 14:38 Blood Pressure 103/60 01/19/19 14:38 O2 Sat by Pulse Oximetry (%) 96 01/18/19 20:00 Constitutional: Yes: Calm Eyes: Yes: Conjunctiva Clear HENT: Yes: Atraumatic Cardiovascular: Yes: S1, S2 Respiratory: Yes: CTA Bilaterally Gastrointestinal: Yes: Soft Genitourinary: Yes: WNL Musculoskeletal: Yes: WNL Edema: Yes Edema: LLE: 1+, RLE: 1+ Neurological: Yes: Oriented Psychiatric: Yes: Oriented Labs: CBC, BMP 01/19/19 06:19 01/19/19 06:19 INR, PTT INR 1.54 (0.83-1.09) H 01/18/19 06:40 Assessment/Plan Current Medications Generic Name Dose Route Start Last Admin Trade Name Freq PRN Reason Stop Dose Admin Acetaminophen 1,000 mg 01/16/19 12:35 Ofirmev Injection - IVPB Q6H PRN PAIN OR FEVER Apixaban 2.5 mg 01/17/19 12:48 01/19/19 09:52 Eliquis - PO 2.5 mg BID ARISTEO Administration Atorvastatin Calcium 10 mg 01/16/19 22:00 01/18/19 22:29 Lipitor - PO 10 mg HS ARISTEO Administration Carvedilol 25 mg 01/16/19 22:00 01/19/19 09:52 Coreg - PO 25 mg BID ARISTEO Administration Piperacillin Sod/Tazobactam 50 mls @ 100 mls/hr 01/16/19 18:00 01/19/19 09:51 Sod 3.375 gm/ Dextrose IVPB 100 mls/hr Q8H-IV ARISTEO Administration Protocol Impression 1. CKD 2. CHF 3. a-fib 4. hx renal mass 5. dawna-rectal abscess 6. htn Plan - will restart diuretics - cont abx - cont wound care - likely d/c home tomorrow - avoid nephrotoxins
[2019-01-19] MEDS: FUROSEMIDE 40 MG TABLET (FP) PO SCH (17:05)
[2019-01-19] MEDS: SPIRONOLACTONE 25 MG TABLET (FP) PO SCH (17:05)
--- NOTE | 2019-01-19 17:31 | PN ---
Physical Exam: SUBJECTIVE: Patient seen and examined. Pt had no acute complaints. he denied pain, increase drainage from dressing OBJECTIVE: Vital Signs Period Temp Pulse Resp BP Sys/Finney Pulse Ox Last 24 Hr 97.4 F-98.0 F 60-68 18-20 88-103/57-76 96 GENERAL: The patient is awake, alert, and fully oriented, in no acute distress. HEAD: Normal with no signs of trauma. LUNGS: Breath sounds equal, clear to auscultation bilaterally, no wheezes, no crackles, no accessory muscle use. HEART: Regular rate and rhythm, S1, S2 without murmur, rub or gallop. ABDOMEN: Soft, nontender, nondistended, normoactive bowel sounds, no guarding, no rebound, no hepatosplenomegaly, no masses. EXTREMITIES: 2+ pulses, warm, well-perfused, no edema. SKIN: Warm, dry, normal turgor, with packing and dressing covering perianal site Laboratory Results - last 24 hr 01/19/19 01/19/19 06:19 06:19 WBC 5.6 RBC 3.39 L Hgb 10.2 L Hct 29.9 L MCV 88.1 MCH 30.0 MCHC 34.1 RDW 16.9 H Plt Count 218 MPV 8.2 Absolute Neuts (auto) 4.5 Neutrophils % 80.3 Lymphocytes % 10.5 Monocytes % 7.7 Eosinophils % 0.9 Basophils % 0.6 Nucleated RBC % 0 Sodium 134 L Potassium 4.4 Chloride 106 Carbon Dioxide 20 L Anion Gap 8 BUN 32.8 H Creatinine 1.7 H Est GFR (CKD-EPI)AfAm 43.49 Est GFR (CKD-EPI)NonAf 37.52 Random Glucose 86 Calcium 7.5 L Active Medications Generic Name Dose Route Start Last Admin Trade Name Freq PRN Reason Stop Dose Admin Acetaminophen 1,000 mg 01/16/19 12:35 Ofirmev Injection - IVPB Q6H PRN PAIN OR FEVER Apixaban 2.5 mg 01/17/19 12:48 01/19/19 09:52 Eliquis - PO 2.5 mg BID ARISTEO Administration Atorvastatin Calcium 10 mg 01/16/19 22:00 01/18/19 22:29 Lipitor - PO 10 mg HS ARISTEO Administration Carvedilol 25 mg 01/16/19 22:00 01/19/19 09:52 Coreg - PO 25 mg BID ARISTEO Administration Furosemide 40 mg 01/19/19 16:00 01/19/19 17:05 Lasix - PO 40 mg DAILY ARISTEO Administration Piperacillin Sod/Tazobactam 50 mls @ 100 mls/hr 01/16/19 18:00 01/19/19 17:05 Sod 3.375 gm/ Dextrose IVPB 100 mls/hr Q8H-IV ARISTEO Administration Protocol Spironolactone 25 mg 01/19/19 16:00 01/19/19 17:05 Aldactone - PO 25 mg DAILY ARISTEO Administration ASSESSMENT/PLAN: 78 y/o M w/ PMHx HTN, CKD, and AFib on Eliquis with diarrhea. Sepsis Perirectal abcess drainage POD3 Pt s/p I&D 01/16/19 : 50ml of elsa pus removed with wound cultures sent Per ID cont IV zosyn despite culture growth of VREF organism and Staph coag neg since the wound looks clean. Culture sensitivity of VREF is to daptomycin and linezolid Dr. 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 As per Dr Hu, he will monitor him on an o/p basis CKD As per nephro, monitor electrolytes. creatinine trending down to 1.7 today from 1.9 yesterday Renal mass: w/u as out pt AFib with RVR restarted on eliquis at low dose 2.5mg PO BID HTN and CHF Pt restarted on coreg. Digoxin 0.25mg PO today (digoxin blood levil 0.61) Monitor BP. will need close monitoring as outpatient to note when BP meds can be restarted lipitor 10mg PO restarted consider cardiac amyloid w/u as outpatient given severe LV DVT PPX SCDs Visit type - Emergency Visit Emergency Visit: Yes ED Registration Date: 01/12/19 Care time: The patient presented to the Emergency Department on the above date and was hospitalized for further evaluation of their emergent condition. - New Patient This patient is new to me today: No - Critical Care Critical Care patient: No - Discharge Referral Referred to [facility] Med P.C.: No ATTENDING PHYSICIAN STATEMENT I saw and evaluated the patient. I reviewed the resident's note and discussed the case with the resident. I agree with the resident's findings and plan as documented. SUBJECTIVE: OBJECTIVE: ASSESSMENT AND PLAN:
--- NOTE | 2019-01-19 18:01 | PN ---
Progress Note (short form) - Note Progress Note: packing changed earlier today my medical team- he wants me to come tomorrow to see the wound no other complaints Vital Signs Period Temp Pulse Resp BP Sys/Finney Pulse Ox Last 24 Hr 97.4 F-98.0 F 60-68 18-20 88-103/57-76 96 cor-rrr lungs clear CBC, BMP 01/19/19 06:19 01/19/19 06:19 Microbiology 01/16/19 11:44 Abscess Gram Stain - Final 01/16/19 11:44 Abscess Body Fluid Culture - Preliminary Vr Ec Faecium Staphylococcus Coagulase Neg 01/16/19 11:44 Abscess Anaerobic Culture - Final NO ANAEROBES WERE ISOLATED 01/11/19 16:00 Blood - Peripheral Venous Blood Culture - Final NO GROWTH AFTER 5 DAYS INCUBATION 01/11/19 16:30 Blood - Peripheral Venous Blood Culture - Final NO GROWTH AFTER 5 DAYS INCUBATION 01/11/19 22:29 Stool Salmonella/Shigella Culture - Final NO GROWTH OF SALMONELLA OR SHIGELLA SPECIES OBTAINED 01/11/19 22:29 Stool Campylobacter Culture - Final NO GROWTH OF CAMPYLOBACTER SPECIES OBTAINED 01/11/19 22:29 Stool Yersinia Culture - Final NO GROWTH OF YERSINIA SPECIES OBTAINED 01/11/19 22:29 Stool Vibrio Culture - Final NO GROWTH OF VIBRIO SPECIES OBTAINED 01/11/19 22:29 Stool Escherichia coli 0157 Culture - Final NO GROWTH OF E COLI 0157 OBTAINED 01/12/19 04:00 Urine - Urine Clean Catch Urine Culture - Final NO GROWTH OBTAINED 01/11/19 22:30 Stool Cryptosporidium Antigen - Final 01/11/19 22:30 Stool Giardia Antigen (ELISEO) - Final a/p s/p drainage of gluteal abscess - f/u cultures r/o malignancy with diffuse adenopathy ckd afib on eliquis abdominal aneurysm renal mass hiv negative ldh normal day #7 zosyn no need to treat broth isolates will return tomorrow to see wound suspect ready for discharge in am if wound care can be arranged d/w hospitalist Problem List - Problems (1) Abscess, gluteal, right Code(s): L02.31 - CUTANEOUS ABSCESS OF BUTTOCK (2) Adenopathy Code(s): R59.1 - GENERALIZED ENLARGED LYMPH NODES (3) Diarrhea Code(s): R19.7 - DIARRHEA, UNSPECIFIED (4) Anemia Code(s): D64.9 - ANEMIA, UNSPECIFIED (5) Thrombocytopenia Code(s): D69.6 - THROMBOCYTOPENIA, UNSPECIFIED (6) CKD (chronic kidney disease) Code(s): N18.9 - CHRONIC KIDNEY DISEASE, UNSPECIFIED (7) Renal mass Code(s): N28.89 - OTHER SPECIFIED DISORDERS OF KIDNEY AND URETER
[2019-01-19] MEDS: ATORVASTATIN CA 10 MG TABLET (FP) PO SCH (22:27)
[2019-01-20] MEDS ORDERED: PIPERACILLIN/TAZOBACTAM 3.375 GM VIAL IVPB ONE ×2 (01:34→10:14)
[2019-01-20] MEDS ORDERED: DEXTROSE 5%-WATER - 50 ML IVPB ONE ×2 (01:34→10:14)
[2019-01-20] MEDS: PIPERACILLIN/TAZOB 3.375 GM 3.375 GM in DEXTROSE 5%-WATER - 50 ML IVPB SCH ×2 (01:54→11:31)
[2019-01-20 06:25] VITALS: BP 116/63; PULSE 60; TEMP 97.3
[2019-01-20 07:28] LABS: BLOOD UREA NITROGEN 27.2 mg/dL (7-18); CALCIUM 7.7 mg/dL (8.5-10.1); CREATININE 1.7 mg/dL (0.55-1.3); POTASSIUM 4.5 mmol/L (3.5-5.1)
[2019-01-20 07:37] LABS: BASO % 0.4 % (0-2.0); HEMATOCRIT 29.7 % (35.4-49); LYMPH % 14.1 % (8-40); MCH 29.8 pg (25.7-33.7); MCHC 33.7 g/dl (32.0-35.9); MEAN CELL VOLUME 88.3 fl (80-96); MEAN PLT VOLUME 8.1 fl (7.5-11.1); MONO % 9.5 % (3.8-10.2); PLATELET COUNT 239 K/MM3 (134-434); RBC 3.36 M/mm3 (4.00-5.60); RDW 17.1 % (11.9-15.9); WHITE BLOOD COUNT 5.9 K/mm3 (4.0-10.0)
--- NOTE | 2019-01-20 09:10 | PN ---
Progress Note (short form) - Note Progress Note: no complaints s/p drainage of abscess on 01/16 feels well Vital Signs Period Temp Pulse Resp BP Sys/Finney Pulse Ox Last 24 Hr 97.3 F-98 F 60-70 20-20 93-116/57-72 98 wound examined with hospitalist no drainage, no purulence +induration , no erythema CBC, BMP 01/20/19 05:00 01/20/19 05:00 CBC, BMP 01/20/19 05:00 01/20/19 05:00 a/p s/p drainage of gluteal abscess - pod#4 r/o malignancy with diffuse adenopathy-refuses biopsy ckd afib on eliquis abdominal aneurysm renal mass hiv negative day #8 zosyn no need to treat broth isolates can switch to po augmentin 500 bid for 5 days needs wound care as outpt d/w hospitalist Problem List - Problems (1) Abscess, gluteal, right Code(s): L02.31 - CUTANEOUS ABSCESS OF BUTTOCK (2) Adenopathy Code(s): R59.1 - GENERALIZED ENLARGED LYMPH NODES (3) Diarrhea Code(s): R19.7 - DIARRHEA, UNSPECIFIED (4) Anemia Code(s): D64.9 - ANEMIA, UNSPECIFIED (5) Thrombocytopenia Code(s): D69.6 - THROMBOCYTOPENIA, UNSPECIFIED (6) CKD (chronic kidney disease) Code(s): N18.9 - CHRONIC KIDNEY DISEASE, UNSPECIFIED (7) Renal mass Code(s): N28.89 - OTHER SPECIFIED DISORDERS OF KIDNEY AND URETER
--- NOTE | 2019-01-20 10:04 | PN ---
Progress Note, Physician Chief Complaint: No CP or SOB NSR and Rare PVCS on tele - Current Medication List Current Medications: Active Medications Acetaminophen (Ofirmev Injection -) 1,000 mg IVPB Q6H PRN PRN Reason: PAIN OR FEVER Apixaban (Eliquis -) 2.5 mg PO BID [facility] Last Admin: 01/19/19 22:25 Dose: 2.5 mg Atorvastatin Calcium (Lipitor -) 10 mg PO HS [facility] Last Admin: 01/19/19 22:27 Dose: 10 mg Carvedilol (Coreg -) 25 mg PO BID [facility] Last Admin: 01/19/19 22:27 Dose: 25 mg Furosemide (Lasix -) 40 mg PO DAILY [facility] Last Admin: 01/19/19 17:05 Dose: 40 mg Piperacillin Sod/Tazobactam (Sod 3.375 gm/ Dextrose) 50 mls @ 100 mls/hr IVPB Q8H-IV [facility]; Protocol Last Admin: 01/20/19 01:54 Dose: 100 mls/hr Spironolactone (Aldactone -) 25 mg PO DAILY [facility] Last Admin: 01/19/19 17:05 Dose: 25 mg - Objective Vital Signs: Vital Signs Temperature 97.3 F L 01/20/19 06:00 Pulse Rate 60 01/20/19 06:00 Respiratory Rate 20 01/20/19 06:00 Blood Pressure 116/63 01/20/19 06:00 O2 Sat by Pulse Oximetry (%) 98 01/19/19 21:00 Constitutional: Yes: No Distress Cardiovascular: Yes: Regular Rate and Rhythm Respiratory: Yes: CTA Bilaterally Gastrointestinal: Yes: Soft Edema: No Neurological: Yes: Alert, Oriented Labs: CBC, BMP 01/20/19 05:00 01/20/19 05:00 INR, PTT INR 1.54 (0.83-1.09) H 01/18/19 06:40 - ....Imaging EKG: Image Reviewed Assessment/Plan Assessment/Plan Echo 01/19: severe conc LVH; severely reduced EF 25-30%, global. mild RVE/mild decr RVSF. severe L/KARISSA. trace MR, mild AI, mod TR. RVSP 40-50. severely dilated IVC per d/w dr rousseau: echo 01/2018: EF 40-45%, mod conc LVH MPI 2014: no ischemia tele: AF, rate ok IMP: -Atrial fibrillation w/ RVR likely driven by volume depletion, infection, anemia -Severe LV dysfx: ?new?, ?etiology, ?rate related? 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 distal aorta 2.8 cm, right common iliac 2.2 cm, L common iliac 1.9 -JAMIA on CKD, baseline creatinine 2.[address] rousseau -anemia REC: -slowly resuming home CHF meds, initially held for hypotension and volume depletion -continue carvedilol 25 bid as bp allows --would tolerate systolic BP > 90 here -given few doses dig for rate control, has not required additional doses -Further w/u of renal mass/paracoccygeal mass as per primary team. -cr near baseline -outpt f/u for aortic aneurysm per vascular -consider cardiac amyloid w/u as outpatient given severe LVH (per Dr. Tovar, d/w 'd dr rousseau) -Eliquis was held for I&D of abscess, resumed post op now -cardiac fonseca stable on current meds.
[2019-01-20] MEDS: APIXABAN 5 MG TABLET PO SCH (11:30)
[2019-01-20] MEDS: FUROSEMIDE 40 MG TABLET (FP) PO SCH (11:30)
[2019-01-20] MEDS: SPIRONOLACTONE 25 MG TABLET (FP) PO SCH (11:30)
[2019-01-20] MEDS: CARVEDILOL 25 MG TABLET (FP) PO SCH (11:31)
--- NOTE | 2019-01-20 12:21 | PN ---
Progress Note, Physician History of Present Illness: Pt seen and examined at bedside. He is awake and alert. He denies shortness of breath. He is eager to go home. - Current Medication List Current Medications: Active Medications Acetaminophen (Ofirmev Injection -) 1,000 mg IVPB Q6H PRN PRN Reason: PAIN OR FEVER Apixaban (Eliquis -) 2.5 mg PO BID [facility] Last Admin: 01/20/19 11:30 Dose: 2.5 mg Atorvastatin Calcium (Lipitor -) 10 mg PO HS [facility] Last Admin: 01/19/19 22:27 Dose: 10 mg Carvedilol (Coreg -) 25 mg PO BID [facility] Last Admin: 01/20/19 11:31 Dose: 25 mg Furosemide (Lasix -) 40 mg PO DAILY [facility] Last Admin: 01/20/19 11:30 Dose: 40 mg Piperacillin Sod/Tazobactam (Sod 3.375 gm/ Dextrose) 50 mls @ 100 mls/hr IVPB Q8H-IV [facility]; Protocol Last Admin: 01/20/19 11:31 Dose: 100 mls/hr Spironolactone (Aldactone -) 25 mg PO DAILY [facility] Last Admin: 01/20/19 11:30 Dose: 25 mg - Objective Vital Signs: Vital Signs Temperature 97.3 F L 01/20/19 06:00 Pulse Rate 60 01/20/19 06:00 Respiratory Rate 20 01/20/19 06:00 Blood Pressure 116/63 01/20/19 06:00 O2 Sat by Pulse Oximetry (%) 98 01/19/19 21:00 Constitutional: Yes: Calm Eyes: Yes: Conjunctiva Clear Cardiovascular: Yes: S1, S2 Respiratory: Yes: CTA Bilaterally Gastrointestinal: Yes: Soft Genitourinary: Yes: WNL Musculoskeletal: Yes: WNL Edema: Yes Edema: LLE: 1+, RLE: 1+ Neurological: Yes: Oriented Psychiatric: Yes: Oriented Labs: CBC, BMP 01/20/19 05:00 01/20/19 05:00 INR, PTT INR 1.54 (0.83-1.09) H 01/18/19 06:40 Problem List - Problems (1) Abdominal pain Code(s): R10.9 - UNSPECIFIED ABDOMINAL PAIN Qualifiers: Abdominal location: epigastric Qualified Code(s): R10.13 - Epigastric pain (2) CKD (chronic kidney disease) Code(s): N18.9 - CHRONIC KIDNEY DISEASE, UNSPECIFIED Assessment/Plan Current Medications Generic Name Dose Route Start Last Admin Trade Name Davie PRN Reason Stop Dose Admin Acetaminophen 1,000 mg 01/16/19 12:35 Ofirmev Injection - IVPB Q6H PRN PAIN OR FEVER Apixaban 2.5 mg 01/17/19 12:48 01/20/19 11:30 Eliquis - PO 2.5 mg BID [facility] Administration Atorvastatin Calcium 10 mg 01/16/19 22:00 01/19/19 22:27 Lipitor - PO 10 mg HS [facility] Administration Carvedilol 25 mg 01/16/19 22:00 01/20/19 11:31 Coreg - PO 25 mg BID [facility] Administration Furosemide 40 mg 01/19/19 16:00 01/20/19 11:30 Lasix - PO 40 mg DAILY [facility] Administration Piperacillin Sod/Tazobactam 50 mls @ 100 mls/hr 01/16/19 18:00 01/20/19 11:31 Sod 3.375 gm/ Dextrose IVPB 100 mls/hr Q8H-IV [facility] Administration Protocol Spironolactone 25 mg 01/19/19 16:00 01/20/19 11:30 Aldactone - PO 25 mg DAILY [facility] Administration Impression 1. CKD 2. CHF 3. a-fib 4. hx renal mass 5. dawna-rectal abscess 6. htn Plan - resume lasix and aldactone - po abx - pt going home today - can be discharged from renal perspective - avoid nephrotoxins
--- NOTE | 2019-01-20 12:28 | DS ---
Physical Exam: SUBJECTIVE: Patient seen and examined OBJECTIVE: Vital Signs Period Temp Pulse Resp BP Sys/Finney Pulse Ox Last 24 Hr 97.3 F-98 F 60-70 20-20 93-116/57-72 98 PHYSICAL EXAM GENERAL: The patient is awake, alert, and fully oriented, in no acute distress. HEAD: Normal with no signs of trauma. EYES: PERRL, extraocular movements intact, sclera anicteric, conjunctiva clear. ENT: Ears normal, nares patent, oropharynx clear without exudates, moist mucous membranes. NECK: Trachea midline, full range of motion, supple. LUNGS: Breath sounds equal, clear to auscultation bilaterally, no wheezes, no crackles, no accessory muscle use. HEART: Regular rate and rhythm, S1, S2 without murmur, rub or gallop. ABDOMEN: Soft, nontender, nondistended, normoactive bowel sounds, no guarding, no rebound, no hepatosplenomegaly, no masses. EXTREMITIES: 2+ pulses, warm, well-perfused, no edema. NEUROLOGICAL: Cranial nerves II through XII grossly intact. Normal speech, gait not observed. PSYCH: Normal mood, normal affect. SKIN: Warm, dry, normal turgor, no rashes or lesions noted. LABS Laboratory Results - last 24 hr 01/20/19 01/20/19 05:00 05:00 WBC 5.9 RBC 3.36 L Hgb 10.0 L Hct 29.7 L MCV 88.3 MCH 29.8 MCHC 33.7 RDW 17.1 H Plt Count 239 MPV 8.1 Absolute Neuts (auto) 4.4 Neutrophils % 75.0 Lymphocytes % 14.1 D Monocytes % 9.5 Eosinophils % 1.0 Basophils % 0.4 Nucleated RBC % 0 Sodium 136 Potassium 4.5 Chloride 107 Carbon Dioxide 20 L Anion Gap 8 BUN 27.2 H Creatinine 1.7 H Est GFR (CKD-EPI)AfAm 43.49 Est GFR (CKD-EPI)NonAf 37.52 Random Glucose 86 Calcium 7.7 L HOSPITAL COURSE: Date of Admission:01/12/19 Date of Discharge: 01/20/19 Discharge Summary Reason For Visit: FEVER,DIARRHEA,PERIRECTAL CELLULITIS Current Active Problems Abdominal pain (Acute) Abscess, gluteal, right (Acute) Adenopathy (Acute) Anemia (Acute) CKD (chronic kidney disease) (Acute) Diarrhea (Acute) Renal mass (Acute) Thrombocytopenia (Acute) Condition: Stable - Instructions Diet, Activity, Other Instructions: You came into the ED because of diarrhea which resolved a few days into your admission. You were found to have an infected fluid collection in your perianal region that was drained by surgery and treated with antibiotics. We did a scan of your abdomen that showed a few things: you were found to have a mass in your kidney for which you will follow up as an outpatient with nephrology. You were also found to have a collection in you lower back for which you will follow up as an outpatient. You were also found to have a large dilation of a blood vessel in you abdomen for which you will also follow up as an outpatient as vascular surgery recommended no surgical intervention at this time. You were also found to have diffusely enlarged lymph nodes for which you refused biopsy; please follow up with your primary care physician.Your symptoms have improved and you are stable to be discharged home. Medications: Please resume all of your home medications. We have made some changes to your medications and added an ANTIBIOTIC to your regimen: Please the antibiotic Augmentin 500mg by mouth twice a day 01/21/19-01/25/19. We decreased your Eliquis from 5mg to 2.5mg Please take your NEW dose from now on. Please take lasix 40 mg by mouth twice a day Follow Disposition: HOME - Home Medications Comprehensive Discharge Medication List: Ambulatory Orders Apixaban [Eliquis] 5 mg PO BID 01/11/19 Atorvastatin Ca [Lipitor] 10 mg PO HS 01/11/19 Carvedilol 25 mg PO BID 01/11/19 Furosemide 80 mg PO DAILY 01/11/19 Furosemide [Lasix -] 40 mg PO BID 01/11/19 Hydralazine HCl 10 mg PO TID 01/11/19 Isosorbide Mononitrate [Imdur -] 30 mg PO DAILY 01/11/19 Sodium Bicarbonate - 2 tab PO TID 01/11/19 Spironolactone 25 mg PO DAILY 01/11/19 - Discharge Referral Referred to [facility] No ATTENDING PHYSICIAN STATEMENT I saw and evaluated the patient. I reviewed the resident's note and discussed the case with the resident. I agree with the resident's findings and plan as documented. SUBJECTIVE: OBJECTIVE: ASSESSMENT AND PLAN:
--- NOTE | 2019-01-20 13:22 | PN ---
Progress Note, Physician Chief Complaint: right gluteal abscess History of Present Illness: 78 yo male PMH significant for HTN, CKD, and AFib on xeralto presented today from home with complaints of diarrhea for the past 4-5 days. he has been improving since surgery. - Current Medication List Current Medications: Active Medications Acetaminophen (Ofirmev Injection -) 1,000 mg IVPB Q6H PRN PRN Reason: PAIN OR FEVER Apixaban (Eliquis -) 2.5 mg PO BID [facility] Last Admin: 01/20/19 11:30 Dose: 2.5 mg Atorvastatin Calcium (Lipitor -) 10 mg PO HS [facility] Last Admin: 01/19/19 22:27 Dose: 10 mg Carvedilol (Coreg -) 25 mg PO BID [facility] Last Admin: 01/20/19 11:31 Dose: 25 mg Furosemide (Lasix -) 40 mg PO DAILY [facility] Last Admin: 01/20/19 11:30 Dose: 40 mg Piperacillin Sod/Tazobactam (Sod 3.375 gm/ Dextrose) 50 mls @ 100 mls/hr IVPB Q8H-IV [facility]; Protocol Last Admin: 01/20/19 11:31 Dose: 100 mls/hr Spironolactone (Aldactone -) 25 mg PO DAILY [facility] Last Admin: 01/20/19 11:30 Dose: 25 mg - Objective Vital Signs: Vital Signs Temperature 97.3 F L 01/20/19 06:00 Pulse Rate 60 01/20/19 06:00 Respiratory Rate 20 01/20/19 06:00 Blood Pressure 116/63 01/20/19 06:00 O2 Sat by Pulse Oximetry (%) 98 01/19/19 21:00 Constitutional: Yes: Well Nourished, No Distress, Calm Eyes: Yes: Conjunctiva Clear, EOM Intact HENT: Yes: Atraumatic, Normocephalic. No: Tonsillar Exudate Neck: Yes: Supple, Trachea Midline Cardiovascular: Yes: Regular Rate and Rhythm, S1, S2 Respiratory: Yes: Regular, CTA Bilaterally Gastrointestinal: Yes: Normal Bowel Sounds, Soft. No: Tenderness ...Rectal Exam: Yes: Erythema (resolved), Other (right gluteal incision). No: Induration Genitourinary: No: CVA Tenderness - Left, CVA Tenderness - Right Breast(s): No: Mass, Skin Changes Musculoskeletal: No: Muscle Pain, Muscle Weakness Extremities: No: Cool, Cyanosis Edema: Yes Edema: LLE: 1+, RLE: 1+ Peripheral Pulses WNL: Yes Peripheral Pulses: Left Radial: 2+, Right Radial: 2+, Left Doralis Pedis: 2+, Right Dorsalis Pedis: 2+, Left Femoral: 2+, Right Femoral: 2+ Wound/Incision: Yes: Clean/Dry, Dressing Dry and Intact, Dressing Removed, Draining, Unapproximated. No: Reddened Neurological: Yes: Alert, Oriented Psychiatric: Yes: Alert, Oriented Labs: CBC, BMP 01/20/19 05:00 01/20/19 05:00 INR, PTT INR 1.54 (0.83-1.09) H 01/18/19 06:40 Problem List - Problems (1) Abscess, gluteal, right Assessment/Plan: 78yo male with MMP including a right gluteal abscess, supratherapeutic INR >3--> 2.07 for best chance at surgical hemostasis s/p I&D right gluteal abscess. healing as expected. Please discharge home Keep the area clean after defecation Patient may choose to wear gauze to stop soiling his underwear Code(s): L02.31 - CUTANEOUS ABSCESS OF BUTTOCK (2) Adenopathy Code(s): R59.1 - GENERALIZED ENLARGED LYMPH NODES (3) Abdominal pain Code(s): R10.9 - UNSPECIFIED ABDOMINAL PAIN Qualifiers: Abdominal location: epigastric Qualified Code(s): R10.13 - Epigastric pain (4) Diarrhea Code(s): R19.7 - DIARRHEA, UNSPECIFIED
--- NOTE | 2019-01-20 15:11 | PN ---
Teaching Attending Note Name of Resident: Caitlyn Khan ATTENDING PHYSICIAN STATEMENT I saw and evaluated the patient. I reviewed the resident's note and discussed the case with the resident. I agree with the resident's findings and plan as documented. SUBJECTIVE: no pain or fever OBJECTIVE: NAD CV: RRR Lungs: CTAB Ext : 1+ pitting edema on legs. Abd: soft, NT, ND, NL BS Skin L: R gluteal wound with bloody discharge . wound was irrigated with saline. no surrounding erythema . ASSESSMENT AND PLAN: 89 y/o man with h/o a fib, diffuse LAP, CKD, known renal mass, HTN, LVH, who presented with diarrhea . he was found to have glutela abscess 1- Gluteal abscess: s/p I&D. - cont augmentin x 5 days . f/u with sx . dry gauze and keep clean 2- Diffuse LAP, and prococcygeal mass.declined w/u at this time 3- Renal mass: w/u as out pt 4- Common iliac artery aneusysm. vascular recs not to perform sx.f/u as out pt 5- A fib with RVR: now controlled. cont coreg /digoxin . cont eliquis ( lower dose than admission ) 6- H/o HTN: cont coreg . 7- Severe cardiomyopathy and LVH : resume lasix 40 daily ( less than admission dose ) and aldactone dc home with VNS
--- NOTE | 2019-01-20 15:13 | DS ---
Physical Exam: SUBJECTIVE: Patient seen and examined. With no complaints. OBJECTIVE: Vital Signs Period Temp Pulse Resp BP Sys/Finney Pulse Ox Last 24 Hr 97.3 F-98 F 60-70 20-20 93-116/57-72 98 PHYSICAL EXAM GENERAL: The patient is awake, alert, and fully oriented, in no acute distress. HEAD: Normal with no signs of trauma. LUNGS: Breath sounds equal, clear to auscultation bilaterally, no wheezes, no crackles, no accessory muscle use. HEART: Regular rate and rhythm, S1, S2 without murmur, rub or gallop. ABDOMEN: Soft, nontender, nondistended, normoactive bowel sounds, no guarding, no rebound, no hepatosplenomegaly, no masses. EXTREMITIES: 2+ pulses, warm, well-perfused, no edema. SKIN: Warm, dry, normal turgor, with packing and dressing covering perianal site LABS Laboratory Results - last 24 hr 01/20/19 01/20/19 05:00 05:00 WBC 5.9 RBC 3.36 L Hgb 10.0 L Hct 29.7 L MCV 88.3 MCH 29.8 MCHC 33.7 RDW 17.1 H Plt Count 239 MPV 8.1 Absolute Neuts (auto) 4.4 Neutrophils % 75.0 Lymphocytes % 14.1 D Monocytes % 9.5 Eosinophils % 1.0 Basophils % 0.4 Nucleated RBC % 0 Sodium 136 Potassium 4.5 Chloride 107 Carbon Dioxide 20 L Anion Gap 8 BUN 27.2 H Creatinine 1.7 H Est GFR (CKD-EPI)AfAm 43.49 Est GFR (CKD-EPI)NonAf 37.52 Random Glucose 86 Calcium 7.7 L HOSPITAL COURSE: Date of Admission:01/12/19 78 y/o M w/ PMHx HTN, CKD, and AFib on Eliquis with diarrhea which resolved few days into admission.Stool cultures were negative. Patients WBC trended down. 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 Dr. Hu recommended no acute intervention was needed and that he will monitor it as an outpatient. General surgery consulted for incision and drainage of perirectal abscess. As INR was supratherapeutic, vitamin K was administered and Eliquis was held Once INR was therapeutic, incision and drainage of the perirectal abscess was completed. and patient place on Antiobiotics until cultures returned. Culture grew VREF but sincr wound was clean and pt wasnt toxic, pt kept on zosyn then discharged on augmentin for 5 days.After the procedure, patient was started on Eliquis 2.5mg decreased from his home dose of 5mg BID. Some of his CHF medications are to be resumed as outpatient cardiology recommends as pt has been hypotensive entire stay. Pt was found to have another fluid collection anterior to his coccyx but pt declined further intervention. Date of Discharge: 01/20/19 Minutes to complete discharge: 35 Discharge Summary Reason For Visit: FEVER,DIARRHEA,PERIRECTAL CELLULITIS Current Active Problems Abdominal pain (Acute) Abscess, gluteal, right (Acute) Adenopathy (Acute) Anemia (Acute) CKD (chronic kidney disease) (Acute) Diarrhea (Acute) Renal mass (Acute) Thrombocytopenia (Acute) Condition: Improved - Instructions Diet, Activity, Other Instructions: You came into the ED because of diarrhea which resolved a few days into your admission. You were found to have an infected fluid collection in your perianal region that was drained by surgery and treated with antibiotics. We did a scan of your abdomen that showed a few things: you were found to have a mass in your kidney for which you will follow up as an outpatient with nephrology. You were also found to have a collection in you lower back for which you will follow up as an outpatient. You were also found to have a large dilation of a blood vessel in your abdomen for which you will also follow up as an outpatient with vascular surgery. You were also found to have diffusely enlarged lymph nodes for which you refused biopsy;please follow up with your primary care physician.You were seen by general surgery, vascular surgery, infectious disease specialist, cardiology, and nephorology while you were here.Your symptoms have improved and you are stable to be discharged home. Medications: Please resume all of your home medications. We have made some changes to your medications and added an ANTIBIOTIC to your regimen: Please the antibiotic Augmentin 500mg by mouth twice a day from 01/21/19 to . We decreased your Eliquis from 5mg to 2.5mg Please take your NEW dose from now on. Please take lasix 40 mg by mouth once daily Since your blood pressure was on the lower side, Please do not resume hydralazine 10mg,and Imdur 30mg until you see cardiology as an outpatient. Follow up: Please follow up with your Primary Care Physician Dr Yanes within one week. Please follow up with Cardiology Dr Devi within one week. Please follow up with vascular surgery Dr Hu within one week. please follow with Dr. Silva to check the wound in 10 days You will have a visiting Nurse who will come to your house and assist with your wound care. Keep the area clean after defecation Apply dry gauze dressing at least twice a day. change every time you go to the bathroom . If you begin to experience lightheadedness, dizziness, shortness of breath, chest pain, abdominal pain, bleeding, fevers, and worsening diarrhea please return to the Emergency Room immediately. Referrals: Bert Devi MD [Staff Physician] - 1 Week Davie Le MD [Staff Physician] - Jose Hu DO [Staff Physician] - 1 Week Ledy Yanes MD [Primary Care Provider] - 1 Week Disposition: HOME - Home Medications Comprehensive Discharge Medication List: Ambulatory Orders Atorvastatin Ca [Lipitor] 10 mg PO HS 01/11/19 Carvedilol 25 mg PO BID 01/11/19 Sodium Bicarbonate - 2 tab PO TID 01/11/19 Spironolactone 25 mg PO DAILY 01/11/19 Amoxicillin/Potassium Clav [Augmentin 500-125 Tablet] 1 each PO DAILY #5 tablet 01/20/19 Apixaban [Eliquis -] 2.5 mg PO BID #30 tablet 01/20/19 Furosemide [Lasix -] 40 mg PO DAILY tablet 01/20/19 Problem List - Problems (1) Abscess, gluteal, right Code(s): L02.31 - CUTANEOUS ABSCESS OF BUTTOCK (2) Adenopathy Code(s): R59.1 - GENERALIZED ENLARGED LYMPH NODES (3) CKD (chronic kidney disease) Code(s): N18.9 - CHRONIC KIDNEY DISEASE, UNSPECIFIED (4) Diarrhea Code(s): R19.7 - DIARRHEA, UNSPECIFIED (5) Renal mass Code(s): N28.89 - OTHER SPECIFIED DISORDERS OF KIDNEY AND URETER This patient is new to me today: No Emergency Visit: Yes ED Registration Date: 01/12/19 Care time: The patient presented to the Emergency Department on the above date and was hospitalized for further evaluation of their emergent condition. Critical Care patient: No - Discharge Referral Referred to [facility] Med P.C.: No ATTENDING PHYSICIAN STATEMENT I saw and evaluated the patient. I reviewed the resident's note and discussed the case with the resident. I agree with the resident's findings and plan as documented. SUBJECTIVE: OBJECTIVE: ASSESSMENT AND PLAN:
== END 2019-01-20 15:18 | disposition home or self-care (01) | DRG 872 ==
LOC: JER 15:32 → JERBED 01-12 00:36 → J4W 01-12 13:52
PROVIDERS: ADMIT Internal Medicine; ATTEND Internal Medicine
PROC: 0J990ZX Drainage of Buttock Subcutaneous Tissue and Fascia, Open Approach, Diagnostic (ICD-10-PCS; principal; 2019-01-16 11:00)
DX: A41.89 Other specified sepsis (principal); L02.31 Cutaneous abscess of buttock; D59.9 Acquired hemolytic anemia, unspecified; K61.1 Rectal abscess; E87.1 Hypo-osmolality and hyponatremia; E46 Unspecified protein-calorie malnutrition; I13.0 Hypertensive heart and chronic kidney disease with heart failure and stage 1 through stage 4 chronic kidney disease, or unspecified chronic kidney disease; N17.9 Acute kidney failure, unspecified; I42.8 Other cardiomyopathies; I27.20 Pulmonary hypertension, unspecified; I72.3 Aneurysm of iliac artery; D69.6 Thrombocytopenia, unspecified; I48.91 Unspecified atrial fibrillation; R10.13 Epigastric pain; E88.09 Other disorders of plasma-protein metabolism, not elsewhere classified; R59.1 Generalized enlarged lymph nodes; R19.7 Diarrhea, unspecified; D63.8 Anemia in other chronic diseases classified elsewhere; N28.89 Other specified disorders of kidney and ureter; N18.9 Chronic kidney disease, unspecified; I50.89 Other heart failure
CPT/HCPCS: 36415; 71045-TC-FY; 74176-TC; 80048; 80053; 80162; 81003; 82272; 82378; 82550; 82553; 82962; 83036; 83605; 83615; 83690; 83735; 84100; 84153; 84484; 85025; 85027; 85610; 85651; 86140; 87040; 87045; 87046; 87070; 87075; 87086; 87186; 87205; 87328; 87329; 87389; 93005; 93010; 93306-TC; 94010; 94760; 99285-25; G0480; J0131; J7030

== ENCOUNTER 2019-02-04 09:36 | Emergency (ER) | payer OTHER ==
[2019-02-04] MEDS ORDERED: levETIRAcetam 500 MG/5 ML INJECTION VIAL IVPB ONE ×2 (09:40→10:20)
[2019-02-04] MEDS ORDERED: SODIUM CHLORIDE 0.9% 500 ML INFUS.BAG IV ONE (09:43)
--- NOTE | 2019-02-04 09:53 | PDOC ---
Attending Attestation - Resident Resident Name: Garcia Johnson - ED Attending Attestation I have performed the following: I have examined & evaluated the patient, The case was reviewed & discussed with the resident, I agree w/resident's findings & plan, Exceptions are as noted - HPI HPI: 02/04/19 09:54 MR Mccarthy presents to the ER due to seizure Pt arrives to the ER via EMS actively seizing accompanied by his fiancee He has a h/o HTN, CKD, and AFib. S/p recent I&D of right gluteal abscess on 01/16 Pt apparently awoke this morning in his usual state of health this morning Per his routine, he awoke at 2:30am to do his morning prayers He made coffee He had breakfast He had breakfast with his partner She left him in the bedroom and when she returned she noted that he was on the floor (this was approximately 7am) She assisted him to standing and helped him back into bed and was at his baseline He began looking through mail She again returned to find him unresponsive EMS called BLS arrived followed by ACLS IV access obtained, no medications given EMS noted ? partial seizure (twitching left side of face) enroute No prior episodes like this No recent illness Pt had not complained of headache, dizziness, nausea, vomiting prior to this 02/04/19 10:00 02/04/19 10:04 - Physicial Exam PE: 02/04/19 10:04 GENERAL: The patient presented seizing, pt has been post ictal EYES: Pupils 3mm bilaterally and responsive, pt blinks in response to visual threat or pain ENT: Moist mucous membranes. No tongue biting noted NECK: Normal range of motion, supple, no nuchal rigidity LUNGS: Breath sounds equal, clear to auscultation bilaterally. No wheezes, and no crackles. HEART: Regular rate and rhythm, normal S1 and S2 without murmur, rub or gallop. ABDOMEN: Soft, non distended EXTREMITIES: No edema NEUROLOGICAL: Pt face symmetrical, pt groans to pain. Nail bed pressure --> left upper extremity withdrawal to pain I have not witnessed him move his legs or right hand SKIN: Warm, Dry, normal turgor, no rashes or lesions noted. 02/04/19 10:47 - Critical Care Time Total Critical Care Time: 200 Critical Care Statement: The care of this patient involved high complexity decision making to prevent further life threatening deterioration of the patient 's condition and/or to evaluate & treat vital organ system(s) failure or risk of failure. - Medical Decision Making 02/04/19 09:52 78 yo M presenting with new seizure DD broad and includes - Intracranial mass, ICH, Massive stroke, Intracranial infection Rectal temp - 99.6 EKG - Afib rate of 72 bpm, LAD, LBBB 02/04/19 10:[address] was performed, Chronic Subdural seen Call placed to Dr. 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 Valentin Recommends that pt have a bleeding time study prior to surgery 02/04/19 11:04 Laboratory Tests 02/04/19 02/04/19 02/04/19 09:39 09:55 09:55 WBC Hgb Hct Plt Count INR Cancelled VBG pH POC VBG pCO2 POC VBG pO2 VBG HCO3 Sodium Potassium Chloride Carbon Dioxide BUN Creatinine Random Glucose Creatine Kinase 61 Troponin I 0.08 H Salicylates < 1.7 L 02/04/19 02/04/19 02/04/19 09:55 09:55 09:55 WBC 3.5 L Hgb 10.5 L Hct 30.9 L Plt Count 141 D INR VBG pH 7.28 L POC VBG pCO2 49.5 POC VBG pO2 < 49 H VBG HCO3 22.3 L Sodium 137 Potassium 4.0 Chloride 101 Carbon Dioxide 25 BUN 23.5 H Creatinine 2.0 H Random Glucose 113 H Creatine Kinase Troponin I Salicylates 02/04/19 11:11 Upon re assessment Pt withdraws his left hand to painful stimuli Call placed to pt daughter Felisha who is the next of kin (woman at bedside is NOT the ) She agrees to any intervention necessary She is en route 02/04/19 11:13 02/04/19 11:25 Pt mental status remains depressed Moves LUE 400 cc elsa blood in cathether Awaiting Platelets Awaiting PRBCs Call placed to Dr Valentin re transfering this patient instead He is in agreement Call placed to [facility] Will transfer for expedited surgical care, close Neurological monitoring, reversal of pt anticoagulation Pt condition grave This was discussed with Shweta and pt josue Pt vitals remain stable, no hypoxia, no gagging, pt noted to be swallowing prior to transportation to [facility] Clinical impression: Chronic subdural collection, initial presentation Afib on Eliquis Discharge - Discharge Information Problems reviewed: Yes Clinical Impression/Diagnosis: Subdural fluid collection, Seizure Condition: Critical Disposition: TRANSFER ACUTE CARE/OTHER HOSP - Admission No - Additional Discharge Information Prescription Drug Monitoring Program (I-STOP) results: I-STOP not reviewed - Follow up/Referral - Patient Discharge Instructions - Post Discharge Activity - Transfer to Acute Care Facility Receiving Facility Name: [facility] Transfer Comment: 02/04/19 12:08 Dr. Denis
--- NOTE | 2019-02-04 09:55 | PDOC ---
History of Present Illness - General Chief Complaint: Seizure Stated Complaint: SEIZURE Time Seen by Provider: 02/04/19 09:52 History Source: Patient Exam Limitations: Clinical Condition, Unresponsive - History of Present Illness Initial Comments: Wei Mccarthy is a 78 yo M w a pmh of HTN, CKD, and AFib on elliquis who presents to the [facility] er [facility]IB[facility] actively having a seizure. The patient lives with his fiance who states that when he woke up this morning he was his usual self and started getting ready to prepare breakfast but then fell down and starting shaking his entire body. When EMS arrived they said he was actively having a seizure. The patient was unresponsive with a GCS of 3 from the time he got to the ER. We placed two large bore IV's and crow a rainbow set of labs then brought the patient straight to cat scan where a large subdural was noted to be compressing the the brain with a shift. Renal: Dr. Yanes Neuro-surgery: Dr. Valentin Uro: Dr. Sales PS: rectal mass removed in the 's recent perirectal abscess drained. Social: Lives with lencho and is retired. Smoked 60 years ago, smoked 1/2 pack per day for 15 years. No alcoholor illicit drugs. Past History - Past Medical History Allergies/Adverse Reactions: Allergies Allergy/AdvReac Type Severity Reaction Status Date / Time No Known Allergies Allergy Verified 01/11/19 15:34 Home Medications: Ambulatory Orders Atorvastatin Ca [Lipitor] 10 mg PO HS 01/11/19 Carvedilol 25 mg PO BID 01/11/19 Sodium Bicarbonate - 2 tab PO TID 01/11/19 Spironolactone 25 mg PO DAILY 01/11/19 Apixaban [Eliquis -] 2.5 mg PO BID #30 tablet 01/20/19 Furosemide [Lasix -] 40 mg PO DAILY tablet 01/20/19 Cardiac Disorders: Yes (AFIB) COPD: No Disorders: Yes (CKD) HTN: Yes - Immunization History Immunization Up to Date: Yes - Psycho Social/Smoking Cessation Hx Smoking History: Never smoked Have you smoked in the past 12 months: No Number of Cigarettes Smoked Daily: 12 If you are a former smoker, when did you quit?: 50 yrs Hx Alcohol Use: Yes Drug/Substance Use Hx: No Review of Systems - Review of Systems Able to Perform ROS?: No (unresponsive) *Physical Exam - Physical Exam General Appearance: Yes: Severe Distress HEENT: positive: ELIDIA, Excessive drooling Neck: positive: Trachea midline, Supple Respiratory/Chest: positive: Crackles Cardiovascular: positive: Tachycardia Vascular Pulses: Dorsalis-Pedis (R): 2+, Doralis-Pedis (L): 2+ Gastrointestinal/Abdominal: positive: Tender Male Genitalia: positive: normal genitalia, hematuria Rectal Exam: positive: normal rectal tone, other (former abscess drain 2 weeks ago) Lymphatic: negative: Adenopathy Musculoskeletal: positive: Normal Inspection Extremity: positive: Normal Capillary Refill, Normal Inspection Integumentary: positive: Normal Color, Dry, Warm Neurologic: positive: Respond to painful stimul, Confused, Disoriented, Depressed Affect. negative: dairy management specialist II-XII NML intact, Fully Oriented, Alert, Normal Mood/Affect, Normal Response, Motor Strength 5/5, Abnormal Cranial NS, Responsive, EOM Palsy, Facial Droop, Numbness ED Treatment Course - LABORATORY CBC & Chemistry Diagram: 02/04/19 11:35 02/04/19 09:55 - RADIOLOGY Radiology Studies Ordered: Category Date Time Status ABDOMEN & PELVIS CT WITH CONTR [CT] Stat CT Scan 02/04/19 09:[address] WITH CONTRAST [CT] Stat CT Scan 02/04/19 09:52 Ordered Medical Decision Making - Medical Decision Making Wei Mccarthy is a 78 yo M w a pmh of HTN, CKD, and AFib on elliquis who presents to the [facility] er [facility] actively having a seizure. The patient lives with his fiance who states that when he woke up this morning he was his usual self and started getting ready to prepare breakfast but then fell down and starting shaking his entire body. When EMS arrived they said he was actively having a seizure. The patient was unresponsive with a GCS of 3 from the time he got to the ER. We placed two large bore IV's and crow a rainbow set of labs then brought the patient straight to cat scan where a large subdural was noted to be compressing the the brain with a shift Vital Signs Temp Pulse Resp BP Pulse Ox 99.9 F H 81 18 105/71 99 02/04/19 10:13 02/04/19 11:01 02/04/19 11:01 02/04/19 11:01 02/04/19 11:01 CT: Large subdural with ventricular shift EKG: A-fib, irregularly irregular, Left axis deviation, Non-specific intraventricular block Neurosurgery consult: Dr. Valentin plans to take the patient to the OR today at 2 pm to drain the blood and perform a craniotomy - When palencia placed elsa return of 450 cc of blood in palencia. Palencia could not be advanced. - Paging Dr. Garner Uro consult: Patsy - Try irrigating bladder and use US to confirm placement then re-assess. Re-assessment: We believe the patient should be trasfered to a [facility] like [place]. - Initiating transfer to [facility]. - Dr. Bauer - Neurosurgeon at [place]. Discharge - Discharge Information Problems reviewed: Yes Clinical Impression/Diagnosis: Subdural fluid collection, Seizure Condition: Critical Disposition: TRANSFER ACUTE CARE/OTHER HOSP - Admission No - Follow up/Referral - Patient Discharge Instructions - Post Discharge Activity - Transfer to Acute Care Facility Receiving Facility Name: [facility] Accepting Physician:: Dr. Bauer
[2019-02-04 10:19] LABS: BASO % 0.5 % (0-2.0); EOS % 1.3 % (0-4.5); HEMATOCRIT 30.9 % (35.4-49); HEMOGLOBIN 10.5 GM/dL (11.7-16.9); LYMPH % 26.7 % (8-40); MCH 30.3 pg (25.7-33.7); MCHC 34.1 g/dl (32.0-35.9); MEAN CELL VOLUME 88.8 fl (80-96); MEAN PLT VOLUME 8.7 fl (7.5-11.1); MONO % 10.2 % (3.8-10.2); NEUT % 61.3 % (42.8-82.8); PLATELET COUNT 141 K/MM3 (134-434); RBC 3.48 M/mm3 (4.00-5.60); RDW 17.8 % (11.9-15.9); WHITE BLOOD COUNT 3.5 K/mm3 (4.0-10.0)
[2019-02-04 10:29] LABS: VENOUS PC02 49.5 mmHg (38-52); VENOUS PH 7.28 (7.31-7.41)
[2019-02-04 10:30] LABS: VENOUS PO2 < 49 mmHg (28-48)
[2019-02-04 10:31] VITALS: BMI 24.9
[2019-02-04 10:32] LABS: INR 1.65 (0.83-1.09); PROTHROMBIN TIME (PATIENT) 19.6 SEC (9.7-13.0)
[2019-02-04 10:35] LABS: ACTIVATED PTT 36.5 SECONDS (25.2-36.5)
[2019-02-04 10:47] LABS: ALBUMIN 2.6 g/dl (3.4-5.0); BILIRUBIN,TOTAL 1.1 mg/dL (0.2-1); BLOOD UREA NITROGEN 23.5 mg/dL (7-18); CALCIUM 8.1 mg/dL (8.5-10.1)
[2019-02-04 11:03] LABS: MAGNESIUM 1.8 mg/dL (1.8-2.4)
[2019-02-04 11:46] LABS: BASO % 0.6 % (0-2.0); EOS % 1.2 % (0-4.5); HEMATOCRIT 27.4 % (35.4-49); HEMOGLOBIN 9.3 GM/dL (11.7-16.9); LYMPH % 15.1 % (8-40); MCH 30.1 pg (25.7-33.7); MCHC 33.9 g/dl (32.0-35.9); MEAN CELL VOLUME 88.8 fl (80-96); MEAN PLT VOLUME 8.4 fl (7.5-11.1); MONO % 9.1 % (3.8-10.2); PLATELET COUNT 111 K/MM3 (134-434); RBC 3.09 M/mm3 (4.00-5.60); RDW 17.3 % (11.9-15.9)
[2019-02-04 13:20] VITALS: BP 118/63; PULSE 75; TEMP 97
--- NOTE | 2019-02-05 11:42 | EKG ---
Test Reason : Blood Pressure : / mmHG Vent. Rate : 072 BPM Atrial Rate : 312 BPM P-R Int : 000 ms QRS Dur : 146 ms QT Int : 422 ms P-R-T Axes : 000 -76 099 degrees QTc Int : 462 ms ATRIAL FIBRILLATION LEFT AXIS DEVIATION NON-SPECIFIC INTRA-VENTRICULAR CONDUCTION BLOCK ABNORMAL ECG Confirmed by PATRICK JOHNSON MD ([id number]) on 02/05/2019 11:42:30 AM Referred By: Confirmed By:PATRICK JOHNSON MD
== END 2019-02-04 13:10 | disposition short-term general hospital (02) ==
LOC: JER 09:36
PROC: 0T9B70Z Drainage of Bladder with Drainage Device, Via Natural or Artificial Opening (ICD-10-PCS; principal; 2019-02-04)
PROC: 3E033GC Introduction of Other Therapeutic Substance into Peripheral Vein, Percutaneous Approach (ICD-10-PCS; 2019-02-04)
PROC: 3E033NZ Introduction of Analgesics, Hypnotics, Sedatives into Peripheral Vein, Percutaneous Approach (ICD-10-PCS; 2019-02-04)
DX: R56.9 Unspecified convulsions (principal); G93.89 Other specified disorders of brain; I12.9 Hypertensive chronic kidney disease with stage 1 through stage 4 chronic kidney disease, or unspecified chronic kidney disease; N18.9 Chronic kidney disease, unspecified; Z87.891 Personal history of nicotine dependence; I48.91 Unspecified atrial fibrillation; Z79.01 Long term (current) use of anticoagulants
CPT/HCPCS: 36415; 36511; 51702; 70450-TC; 71250-TC; 72125-TC; 74176-TC; 80053; 80307; 82550; 82803; 83605; 83735; 84484; 85025; 85610; 85730; 86850; 86900; 86901; 87040; 93005; 93010; 96374; 96375; 99285-25; G0463-25; P9034; P9038